=== PATIENT | female | born 1940 | race Caucasian/White ===

== ENCOUNTER 2019-11-19 08:34 | Outpatient (CLI) | payer MEDICARE, SELFPAY ==
--- NOTE | 2019-11-19 | EST_ITS ---
Patient Info Name: Giselle Aranda Age: 79 years : 1940 Gender: Female Ht: 66 in Wt: 147 lbs BSA: 1.77 m2 Exam Date: 11/19/2019 11:32 AM Exam Location: [facility] Stress Patient Status: Outpatient Admit Date: 11/19/2019 Staff Ordering Physician: John Greenwood DO Attending Provider: John Greenwood DO Exercise Technologist: John Wynn RDCS, RT Exercise Physician: John Greenwood DO Exam Type: CA stress eva w NM Study Info A regadenoson stress test was performed. Summary 1. 1. Negative lexiscan stress test for ischemic ST changes by ECG criteria. 2. 2. Stable hemodynamics throughout the test. 3. 3. Nuclear scan to follow and will be reported separately. Please correlate with it. 4. 4. Patient informed of the above results. Protocol: Lexiscan Stress ECG Details Stage: REST Duration (min): 4 min : 44 sec HR (bpm): 98 SBP (mmHg): 111 DBP (mmHg): 66 Stage: STAGE 1 Duration (min): 1 min : 0 sec HR (bpm): 72 SBP (mmHg): 140 DBP (mmHg): 75 Stage: RECOVERY Duration (min): 1 min : 0 sec HR (bpm): 102 SBP (mmHg): 140 DBP (mmHg): 75 Stage: RECOVERY Duration (min): 2 min : 0 sec HR (bpm): 105 SBP (mmHg): 140 DBP (mmHg): 75 Stage: RECOVERY Duration (min): 3 min : 0 sec HR (bpm): 97 SBP (mmHg): 137 DBP (mmHg): 81 Stage: RECOVERY Duration (min): 3 min : 21 sec HR (bpm): 111 SBP (mmHg): 137 DBP (mmHg): 81 Rest HR: 98 bpm Peak HR: 118 bpm Rest Sys BP: 111 mmHg Peak Sys BP: 140 mmHg Max Pred HR: 140 bpm % Max Pred HR: 84 % Target HR: 119 bpm Max RPP: 16,520 bpm*mmHg Termination Reason: Completed protocol Cardiac Symptoms: Shortness of breath Total Time: 1 min : 0 sec Rest Snow BP: 66 mmHg Peak Snow BP: 75 mmHg Total Dose: 0.4 mg Resting ECG Atrial fibrillation. Stress ECG No ST changes. Arrhythmias None. Report Signatures
--- NOTE | ~2019-11-19 | NM_ITS ---
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 The patient was infused intravenously with Lexiscan (regadenoson). Then, 24.2 mCi Tc99m tetrofosmin (Myoview) was administered intravenously, and stress images were obtained. Data was surekha nstructed into short axis and horizontal and vertical long axis SPECT images. Gated SPECT images were also obtained. COMPARISON: None. FINDINGS: There is no definite reversible or fixed perfusion abnormality to suggest ischemia or infar ction. There is no segmental wall motion abnormality. Left ventricular ejection fraction measures 4 9%. IMPRESSION: 1. No definite ischemia or infarct. 2. Decreased left ventricular ejection fraction measuring 49%. Reviewed, dictated and finalized at location A. NG MACHINE OPERATOR PRODUCTION
== END 2019-11-19 08:35 | disposition home or self-care (01) ==
PROVIDERS: PCP Internal Medicine; Visit Provider Internal Medicine Cardiovascular Disease
DX: I50.20 Unspecified systolic (congestive) heart failure (principal)
CPT/HCPCS: 78452; 93017; A9502; J2785

== ENCOUNTER 2020-06-03 08:29 | Outpatient (CLI) | payer MEDICARE, SELFPAY ==
--- NOTE | 2020-06-03 08:47 | ECHO_ITS ---
Patient Info Name: Giselle Aranda Age: 79 years : 1940 Gender: Female Ht: 66 in Wt: 148 lbs BSA: 1.78 m2 HR: 76 bpm BP: 131 / 85 mmHg Heart Rhythm: Atrial Fibrillation Technical Quality: Good Exam Date: 06/03/2020 9:06 AM Exam Location: [facility] Pulmonary Patient Status: Outpatient Admit Date: 06/03/2020 Staff Ordering Physician: John Greenwood DO Macaroni Maker: Jennifer Beckwith RDCS Attending Provider: John Greenwood DO Exam Type: CA echo doppler color flow Study Info Indications - SYSTOLIC DIASTOLIC CONGESTIVE HEART FAILURE Complete two-dimensional, color flow and Doppler transthoracic echocardiogram is performed. Summary 1. Left ventricular chamber dimension is normal. 2. Left ventricular systolic function is preserved, estimated at 50-55%. 3. There is mildly increased left ventricular wall thickness. 4. The left ventricular diastolic function is abnormal. 5. E/e' 16 is elevated. 6. Atrial fibrillation. 7. Left atrial chamber dimension is severely enlarged. 8. Right atrial chamber dimension is severely enlarged. 9. Suspected atrial septal defect visualized by color flow imaging. 10. There is severe aortic valve sclerosis. 11. There is trace aortic valve regurgitation. 12. There is moderate to severe aortic valve stenosis based on a peak velocity of 301 cm/s, mean gradient of 22 mmHg, and aortic valve area of 1.0 cm2. 13. The mitral valve has moderately calcified annulus. 14. There is moderate mitral valve regurgitation. 15. There is mild to moderate tricuspid valve regurgitation. 16. Mild pulmonary hypertension, estimated pulmonary arterial systolic pressure is 44 mmHg. 17. There is trace pulmonic regurgitation. 18. Dilated inferior vena cava with >50% collapse upon inspiration consistent with elevated right atrial pressure, 10 mmHg. Left Ventricle E/e' 16 is elevated. Atrial fibrillation. Left ventricular systolic function is preserved, estimated at 50-55%. Left ventricular chamber dimension is normal. There is mildly increased left ventricular wall thickness. The left ventricular diastolic function is abnormal. Right Ventricle Right ventricular chamber dimension is not well visualized. Right ventricular systolic function is normal. Left Atria Left atrial chamber dimension is severely enlarged. Right Atria Right atrial chamber dimension is severely enlarged. Atrial Septum Suspected atrial septal defect visualized by color flow imaging. Aortic Valve There is moderate to severe aortic valve stenosis based on a peak velocity of 301 cm/s, mean gradient of 22 mmHg, and aortic valve area of 1.0 cm2. The aortic valve is trileaflet. There is severe aortic valve sclerosis. There is trace aortic valve regurgitation. Pulmonic Valve There is trace pulmonic regurgitation. Mitral Valve The mitral valve has moderately calcified annulus. There is no mitral valve stenosis. There is moderate mitral valve regurgitation. Tricuspid Valve There is mild to moderate tricuspid valve regurgitation. Mild pulmonary hypertension, estimated pulmonary arterial systolic pressure is 44 mmHg. Pericardium/Pleural There is no pericardial effusion. Inferior Vena Cava Dilated inferior vena cava with >50% collapse upon inspiration consistent with elevated right atrial pressure, 10 mmHg. Aorta The aortic root size at the sinus of Valsalva is normal. Left Ventricular Outflow Tract
== END 2020-06-03 08:30 | disposition home or self-care (01) ==
LOC: ANHCARD 08:30
PROVIDERS: PCP Internal Medicine; Visit Provider Internal Medicine Cardiovascular Disease
DX: I50.43 Acute on chronic combined systolic (congestive) and diastolic (congestive) heart failure (principal); I08.3 Combined rheumatic disorders of mitral, aortic and tricuspid valves
CPT/HCPCS: 93306

== ENCOUNTER 2020-06-07 18:53 | Emergency (ER) | payer MEDICARE, SELFPAY ==
--- NOTE | ~2020-06-07 | XR_ITS ---
EXAMINATION: XR chest 2V DATE: 06/07/2020 20:11 INDICATION: COPD presenting with difficulty breathing TECHNIQUE: frontal and lateral views of the chest were obtained. COMPARISON: Chest radiograph dated 10/23/2019 FINDINGS: Hyperexpansion of lungs with flattening of the diaphragm suggestive of COPD. Blunting at the left pos terior sulcus consistent with small left pleural effusion. Previous pulmonary edema has resolved. No pneumothorax or right-sided pleural effusion. Cardiomegaly. Internal fixation along the posterolatera l left seventh, eighth and ninth ribs. Old healed posterolateral left sixth rib fracture. Moderate th oracic spondylosis. IMPRESSION: 1. Small left pleural effusion. 2. Hyperexpansion of lungs which could be seen with COPD. 3. Cardiomegaly. Reviewed, dictated and finalized at location A.
--- NOTE | 2020-06-07 18:56 | ECG_ITS ---
Measurements Intervals [place] Rate: 97 P: CT: 0 QRS: -17 QRSD: 101 T: 1 QT: 331 QTc: 422 Interpretive Statements ATRIAL FIBRILLATION FREQUENT VENTRICULAR PREMATURE COMPLEXES INCOMPLETE RIGHT BUNDLE BRANCH BLOCK ABNORMAL ECG Electronically Signed On 06-07-2020 19:24:48 CDT by John Greenwood D.O.
[2020-06-07 19:02] VITALS: BP 162/82; PULSE 92; PULSE 93; RESP 20; TEMP 35.9; O2SAT 92
[2020-06-07 19:14] LABS: Basophils Absolute Auto 0.1 K/mm3 (0.0-0.1); Basophils Percent Auto 0.7 % (0.2-1.2); Eosinophils Absolute Auto 0.2 K/mm3 (0-0.3); Eosinophils Percent Auto 2.2 % (0-4.4); Hematocrit 43.5 % (37.0-47.0); Hemoglobin 14.5 g/dL (12.0-15.0); Immature Granulocyte Absolute 0.04 K/mm3 (0.00-0.031); Immature Granulocyte Percent A 0.5 % (0-0.5); Lymphocytes Absolute Auto 2.14 K/mm3 (0.9-3.2); Lymphocytes Percent Auto 24.5 % (18.3-44.2); Mean Corpuscular HGB Conc 33.3 g/dl (32-36); Mean Corpuscular Hemoglobin 33.5 pg (26-34); Mean Corpuscular Volume 100.5 fl (80-100); Mean Platelet Volume 10.4 fl (7.4-10.4); Monocytes Absolute Auto 0.9 K/mm3 (0.1-0.6); Monocytes Percent Auto 10.7 % (2.6-8.5); Neutrophils Absolute Auto 5.4 K/mm3 (1.3-6.7); Neutrophils Percent Auto 61.4 % (45.5-73.1); Platelet Count Result 233 k/mm3 (150-375); Red Blood Count 4.33 M/mm3 (4.2-5.4); Red Cell Distribution Width 14.3 % (11.5-14.5); White Blood Count 8.7 K/mm3 (4.5-10.0)
[2020-06-07 19:26] LABS: Anion Gap 7 mmol/L (8-16); Blood Urea Nitrogen 20 mg/dL (7-17); Calcium 9.4 mg/dL (8.4-10.2); Carbon Dioxide 27 mmol/L (22-30); Chloride 104 mmol/L (98-107); Estimated Glomerular Filt Rate > 60; Glucose 100 mg/dL (65-105); Potassium 4.8 mmol/L (3.4-5.0); Sodium 138 mmol/L (137-145)
--- NOTE | 2020-06-07 19:35 | ED.SOB ---
HPI - SOB/Dyspnea General Chief Complaint: Shortness of Breath/Dyspnea Stated Complaint: can't breathe very well Time Seen by Provider: 06/07/20 19:04 Source: patient and family Mode of arrival: ambulatory Limitations: no limitations History of Present Illness HPI Narrative: This patient is an 79 year old female who presents for evaluation of shortness of breath. PAtient states she has been intermittently sob for 6 months but it has worsened over the past week. She states she is having issues with sob with exertion. she had to stop a couple times while walking into ER from the car today. She was admitted to hospital in October 2019 for a similar issue and she was diagnosed with CHF and afib. She was started on medication and she has been following with Dr. Greenwood. She was seen by her aquatics director, Dr. Greenwood, this past week, and she was told that her heart was fine. She denies chest pain, edema, cough, fever, nausea or vomiting. MD elicited complaint: shortness of breath Related Data Home Medications Medication Instructions Recorded Confirmed allopurinol 300 mg PO DAILY 10/23/19 04/22/20 Allergies Allergy/AdvReac Type Severity Reaction Status Date / Time iodine Allergy Unknown Unknown Verified 04/22/20 11:03 Penicillins Allergy Unknown Unknown Verified 04/22/20 11:03 shellfish derived Allergy Unknown Unknown Verified 04/22/20 11:03 Review of Systems Review of Systems: All systems reviewed & are unremarkable except as noted in HPI and below Constitutional: Constitutional: Denies chills, Reports fatigue and Denies fever(s) ENT: Denies nasal congestion Cardiovascular: Cardiovascular: Denies chest pain and Denies radiating jaw, neck or arm pain Respiratory: Respiratory: Denies cough, Reports dyspnea and Denies wheezing Gastrointestinal: Gastrointestinal: Reports abdominal pain and Reports nausea PMFSH Past Medical History Medical History BCC (basal cell carcinoma of skin) Gout HTN (hypertension) Rib fractures Tobacco abuse Surgical History Surgical History (Updated 10/23/19 @ 13:32 by Marisol Cyr NP) History of bladder suspension procedure History of open reduction and internal fixation (ORIF) procedure chest tube, possible pneumothorax that was drained History of surgical removal of skin lesion face Social History Social History (Updated 01/02/20 @ 13:22 by Marisol Cyr NP) Social History: The patient lives with her who she nominated to be her durable poa . She desires full code but does not want to live on a ventilator for a lifetime. She has a son and daughter. 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 rarely drinks. 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 Gender identity (if verbalized by the patient): Female Spiritual care concerns: No Agree to blood products: Yes Exam Const: General: alert Nutritional Appearance: thin Orientation/consciousness: patient oriented x3 HENMT: Head: normocephalic and atraumatic Eyes: EOM: EOMs intact bilaterally Chest: Chest palpation & inspection: normal inspection of the chest Resp: Effort & Inspection: labored (mild l), no retractions and no use of accessory muscles Auscultation: clear to auscultation bilaterally, no wheezes and diminished lung sounds Cardio: Rate: regular rate Rhythm: abnormal rhythm irregularly irregular Heart sounds: no murmurs GI: GI Palp: Yes Soft to palpation, No Tenderness to palpation present (GI), No Guarding due to palpation present (GI) and No Rigid due to palpation Skin: General skin exam: normal color Rashes: no rashes Neuro: General: patient oriented x3 and moves all extremities Extrem: General: no pedal edema Course Reevaluation(s) Reevaluation #1: Michelle
[2020-06-07 19:36] LABS: INR 1.3
[2020-06-07 19:37] LABS: Partial Thromboplastin Time 30.8 SECONDS (22.3-36.8)
[2020-06-07] MEDS: ALBUTEROL SULFATE (*SP) AEROSOL 1 PUFF 6 PUFF INHALATION (19:37)
[2020-06-07] MEDS: ALBUTEROL SULFATE (*SP) INHALER 1 PUFF (19:37)
[2020-06-07 19:39] VITALS: PULSE 89; RESP 20
[2020-06-07 19:45] LABS: NT Pro B Type Natriuretic Pept 3230 PG/ML (5-100)
[2020-06-07 19:51] LABS: Base Excess ABG 2.2 mEq/l (+/-2.0); Carboxyhemoglobin 1.7 % THb (0-2.0); Fractional Inspired Oxygen 21 %; HCO3 ABG 28.1 mEq/l (22.0-26.0); Methemoglobin ABG 0.2 %THb (0-1.5); Oxygen Content ABG 18.3 %vol (16.0-22.0); Oxyhemoglobin 88.2 % THb (90.0-100.0); PCO2 ABG 48.2 mmHg (35.0-45.0); PO2 FiO2 Ratio Arterial Blood 2.71 %; Reduced Hemoglobin 9.9 %THb (0-5.0); Total Hemoglobin 14.8 g/dL (12.0-18.0); pH ABG 7.383 (7.350-7.450)
[2020-06-07 19:52] LABS: Device ROOM AIR; Modified Allen's Test Pass; Site Drawn RIGHT RADIAL
[2020-06-07] MEDS: predniSONE 20 MG TABLET 60 MG PO (20:54)
[2020-06-07 20:57] VITALS: BP 152/84; PULSE 92; RESP 30; O2SAT 94
[2020-06-07 21:36] VITALS: BP 152/84; PULSE 93; RESP 28; TEMP 36.6; O2SAT 95
[2020-06-08 14:24] LABS: SARS-CoV-2 RNA PCR Negative
== END 2020-06-07 21:39 | disposition home or self-care (01) ==
PROVIDERS: Emergency Medicine; Emergency Provider General Practice; PCP Internal Medicine
DX: R06.02 Shortness of breath (principal); I48.91 Unspecified atrial fibrillation; J44.9 Chronic obstructive pulmonary disease, unspecified; Z20.828 Contact with and (suspected) exposure to other viral communicable diseases
CPT/HCPCS: 36415; 36600; 71046; 80048; 82375; 82805; 83050; 83880; 85025; 85610; 85730; 87635; 93005; 99284; A9270; C9803; J7512; U0003

== ENCOUNTER 2020-08-17 12:33 | Outpatient (CLI) | payer MEDICARE, SELFPAY ==
--- NOTE | 2020-08-22 12:04 | WPDPFTINT ---
PFT Interpretation PFT Interpretation: This PFT met all criteria for ATS standards and reproducibility FEV/FVC post bronchodilator 45% FEV1 56% or 1.02 liters FVC 86% or 2.29 liters TLC 135% or 6.68 liters RV 203% RV/TLC 64% DLCO 69% when adjusted for alveolar volume but not adjusted for hemoglobin Flow volume loops showed significant expiratory coving Impression: Moderate airflow obstruction with severe air trapping and mildly decreased diffusion capacity. This pattern is suggestive of COPD. Clinical correlation is advised.
--- NOTE | 2020-08-22 12:06 | WPDSIXMINUTE ---
Six Minute Walk Six Minute Walk: The patients O2 sats started at 93% and dropped as low as 92% Total walk distance 152.4 meters conclusion: This patient does not qualify for home oxygen therapy.
== END 2020-08-17 12:34 | disposition home or self-care (01) ==
PROVIDERS: PCP Internal Medicine; Visit Provider Internal Medicine Critical Care Medicine
DX: J44.9 Chronic obstructive pulmonary disease, unspecified (principal)
CPT/HCPCS: 94060; 94618; 94726; 94729

== ENCOUNTER 2020-10-04 10:38 | Outpatient (CLI) | payer MEDICARE, SELFPAY ==
--- NOTE | ~2020-10-04 | XR_ITS ---
XR chest 2V 10/04/2020 11:06 Indication: Shortness of breath. COPD. Procedure: 2 view chest Comparison: Comparison to multiple prior studies sequentially, with oldest reviewed study dated 11/2019. Findings: Cardiomegaly. There are surgical changes consistent with internal fixation of left rib frac tures. There are patchy infiltrates of the right mid and lower lung zone. Possible small right effusi on. No pneumothorax. No acute osseous abnormality. Impression: 1: Patchy infiltrates of the right mid and lower lung zone, suspicious for pneumonia. Consider correl ation with CT examination or follow-up chest x-ray in 3-4 weeks to assess for resolution following ap propriate treatment. Reviewed, dictated and finalized at location A. ON PICTURE CRITIC Impression: 1: Patchy infiltrates of the right mid and lower lung zone, suspicious for pneu monia. Consider correlation with CT examination or follow-up chest x-ray in 3-4 weeks to assess for resolution following appropriate treatment.
[2020-10-04 11:56] LABS: NT Pro B Type Natriuretic Pept 2960 PG/ML (5-100)
== END 2020-10-04 10:39 | disposition home or self-care (01) ==
PROVIDERS: PCP Internal Medicine; Visit Provider Nurse Practitioner Family
DX: I50.43 Acute on chronic combined systolic (congestive) and diastolic (congestive) heart failure (principal); R06.02 Shortness of breath; R91.8 Other nonspecific abnormal finding of lung field
CPT/HCPCS: 36415; 71046; 83880

== ENCOUNTER 2020-10-05 08:18 | Outpatient (CLI) | payer MEDICARE, SELFPAY ==
--- NOTE | 2020-11-17 20:06 | WPDHOMESLEEP ---
Sleep Study - Home Unattended Date of Study: 10/05/20 Ordering Provider: Rose Marie Abreu MD Interpreting Physician: Rose Marie Abreu MD Home Sleep Study Type: Apnea Link Air Height: 1.68 m Weight: 69.853 kg Body Mass Index: 24.8 Neck Circumference (inches): 18 [place]: 6 Reason for Sleep Study Overnight oximetry July 01 2020 showing hypoxemia with minimum saturation 82% and oxygen desaturation index 14 events per hour. Sleep History Giselle Aranda is an 80-year-old female with a history of COPD, prior tobacco use and chronic shortness of breath. She has a decreased ejection fraction of 45-50% with aortic stenosis. she had a nocturnal oximetry July 01 that showed an oxygen index of 14 per hour and a minimum desaturation of 82%. Her baseline a wake saturation is 93%. This was more consistent with obstructive sleep apnea and not COPD with hypoxemia alone. She has chronic shortness of breath with inability to perform her normal activities. She has fatigue, breathing, incontinence with multiple trips to the bathroom throughout the day and night. She has arthritis with severe pain and swelling in the left foot and leg. He has hypertension. She has excessive daytime sleepiness. She rarely snores, and it is never loud enough that others complain about it. She never awakens at night with heartburn, belching or coughing. She never awakens from sleep feeling short of breath. She rarely has trouble sleeping with a cold. She does not wake up gasping for breath at night. She rarely has breathing problems at night observed by others. She denies sweating excessively at night and denies her heart pounding or beating irregularly at night. She frequently falls asleep during the day, never involuntarily or while driving. She does not fall asleep while exerting physical effort. She does not have loss of muscle tone with strong emotion. She does not have daytime difficulties due to excessive sleepiness, currently is retired. She denies feeling paralyzed when waking or falling asleep. She does not have vivid dreamlike scenes upon awakening or falling asleep. She does not feel afraid to go to sleep. She does not have nightmares. She occasionally remembers her dreams. She does not have racing thoughts. She does not feel sad or depressed. She occasionally has anxiety. She rarely has muscular tension. She does not notice parts of her body jerking. She does not kick at night and does not have crawling or aching feelings in her legs at night. She does not have leg pain during the night. She denies waking with morning jaw pain. she occasionally grinds her teeth at night. She occasionally has bothered by pain during the day. She rarely is awakened by pain during the night. She occasionally wakes up feeling stiff in the morning with sore achy muscles. She rarely wakes up with pain in the spine. Normal bedtime is 10:00 p.m. falling asleep within a few minutes typically waking 1 or 2 times at night. She will go to urinate and then try to get back to sleep. She wakes in the morning at 7:30 a.m. or 8:00 a.m.. Weekend schedule is the same. She estimates getting 8-9 hours of interrupted sleep per night. She is able to return to sleep relatively quickly. She takes naps in the afternoon. A short nap of 10-15 minutes is not refreshing. She feels better in the morning compared other times of day. Habits: quit tobacco a year and a half ago. Caffeine 2 cups per day. No alcohol or recreational drugs [facility] Past Medical History Medical History (Updated 11/17/20 @ 20:21 by Rose Marie Abreu MD) BCC (basal cell carcinoma of skin) CHF (congestive heart failure) Chronic shortness of breath COPD (chronic obstructive pulmonary disease) Gout History of atrial fibrillation History of tobacco abuse HTN (hypertension) Hyperinflation of lungs Infiltrate noted on imaging study Moderate to severe aortic stenosis Nocturnal hypoxemia Pulmonary hypertension
[2020-11-17 20:24] VITALS: BMI 24.8
== END 2020-10-05 08:19 | disposition home or self-care (01) ==
LOC: ANHCSM 08:22
PROVIDERS: PCP Internal Medicine; Visit Provider Internal Medicine Critical Care Medicine
DX: G47.30 Sleep apnea, unspecified (principal); J44.9 Chronic obstructive pulmonary disease, unspecified
CPT/HCPCS: 95806

== ENCOUNTER 2020-11-05 13:30 | Outpatient (CLI) | payer MEDICARE, SELFPAY ==
--- NOTE | 2020-11-05 13:38 | ECHO_ITS ---
Patient Info Name: Giselle Aranda Age: 80 years : 1940 Gender: Female Ht: 66 in Wt: 148 lbs BSA: 1.78 m2 HR: 81 bpm BP: 123 / 98 mmHg Technical Quality: Good Exam Date: 11/05/2020 1:57 PM Exam Location: [facility] Pulmonary Patient Status: Outpatient Admit Date: 11/05/2020 Staff Ordering Physician: John Greenwood DO Crester: John Wynn RDCS, RT Attending Provider: John Greenwood DO Referring Physician: Timo DO; Exam Type: CA echo doppler color flow Study Info Indications I35.0 - Nonrheumatic aortic (valve) stenosis Complete two-dimensional, color flow and Doppler transthoracic echocardiogram is performed. Strain analysis performed. Summary 1. Complete two-dimensional, color flow and Doppler transthoracic echocardiogram is performed. 2. Left ventricular chamber dimension is mildly enlarged. 3. Left ventricular systolic function is mildly reduced, estimated at 45-50%. 4. There is moderately increased left ventricular wall thickness. 5. Left ventricular septal wall motion is abnormal with septal motion related to bundle branch block. 6. The left ventricular diastolic function is abnormal. 7. E/e' 16 is elevated. 8. Global longitudinal strain is abnormal at -9.2%. 9. Right ventricular systolic function is reduced based on TAPSE of 1.1 cm.. 10. Left atrial chamber dimension is moderately enlarged. 11. Right atrial chamber dimension is severely enlarged. 12. The aortic valve is not well visualized. 13. There is severe aortic valve sclerosis. 14. There is trace aortic valve regurgitation. 15. There is moderate to severe aortic valve stenosis. Based on valve gradients of peak 22 mmHg and mean gradient 12 mmHg and peak velocity of 2.9 m/s suggests that aortic stenosis is not severe. Valve area was not calculated. Consider EMANI for accurate measurement of valve area. 16. The mitral valve has mildly thickened leaflets and moderately calcified annulus. 17. There is moderate mitral valve regurgitation. 18. There is moderate tricuspid valve regurgitation. 19. Severe pulmonary hypertension, estimated pulmonary arterial systolic pressure is 71 mmHg. 20. There is trace pulmonic regurgitation. 21. Small atheroma in anterior and posterior aortic root. 22. Dilated inferior vena cava with <50% collapse upon inspiration consistent with significantly elevated right atrial pressure, 15 mmHg. Left Ventricle E/e' 16 is elevated. Global longitudinal strain is abnormal at -9.2%. Left ventricular chamber dimension is mildly enlarged. Left ventricular systolic function is mildly reduced, estimated at 45-50%. There is moderately increased left ventricular wall thickness. Left ventricular septal wall motion is abnormal with septal motion related to bundle branch block. The left ventricular diastolic function is abnormal. Right Ventricle Right ventricular systolic function is reduced based on TAPSE of 1.1 cm.. Right ventricular chamber dimension is not well visualized. Left Atria Left atrial chamber dimension is moderately enlarged. Right Atria Right atrial chamber dimension is severely enlarged. Aortic Valve There is moderate to severe aortic valve stenosis. Based on valve gradients of peak 22 mmHg and mean gradient 12 mmHg and peak velocity of 2.9 m/s suggests that aortic stenosis is not severe. Valve area was not calculated. Consider EMANI for accurate measurement of valve area. The aortic valve is not well visualized. There is severe aortic valve sclerosis. There is trace aortic valve regurgita
== END 2020-11-05 13:31 | disposition home or self-care (01) ==
PROVIDERS: PCP Internal Medicine; Visit Provider Internal Medicine Cardiovascular Disease
DX: I35.0 Nonrheumatic aortic (valve) stenosis (principal); I70.0 Atherosclerosis of aorta; I34.0 Nonrheumatic mitral (valve) insufficiency; I36.1 Nonrheumatic tricuspid (valve) insufficiency; I27.20 Pulmonary hypertension, unspecified; I51.7 Cardiomegaly
CPT/HCPCS: 93306

== ENCOUNTER 2020-11-20 01:34 | Outpatient (CLI) | payer MEDICARE, SELFPAY ==
[2020-11-20 18:46] LABS: SARS-CoV-2 RNA PCR Negative
== END 2020-11-20 01:35 | disposition home or self-care (01) ==
LOC: ANHCOVIDDT 01:34
PROVIDERS: Family Provider Internal Medicine; PCP Internal Medicine; Visit Provider Internal Medicine Critical Care Medicine
DX: Z01.812 Encounter for preprocedural laboratory examination (principal); Z20.822 Contact with and (suspected) exposure to COVID-19
CPT/HCPCS: C9803; U0003; U0005

== ENCOUNTER 2020-11-23 08:37 | Outpatient (CLI) | payer MEDICARE, SELFPAY ==
--- NOTE | 2020-12-15 17:06 | WPDSLEEPSTUD ---
Sleep Study Date of Study: 11/23/20 Ordering Provider: Rose Marie Abreu MD Interpreting Physician: Rose Marie Abreu MD Sleep Study Type: Polysomnogram Height: 1.65 m Weight: 67.132 kg Body Mass Index: 24.6 Neck Circumference: 38.1 cm [place]: 13 Reason for Sleep Study *excessive daytime sleepiness HST 10/05/2020 mild JUAN R AHI of 7, desaturation 82%, 21 minutes spent below 88% saturation which was 4% of the test, mild snoring; comorbidity of hypertension, also COPD; this test was ordered as a split night study although it should have been a CPAP titration; she had little sleep, did not meet criteria for a split night, so this was performed as a basic sleep study. Sleep History Giselle Aranda is an 80-year-old female who thinks that she sleeps too much. She gets 8-9 hours of sleep at night and always takes a 2 or 3 hour nap in the day. She has incontinence which requires her to get up at night to go to the bathroom 1 or 2 times. She has always able to return to sleep. She does not awaken from sleep feeling short of breath. She does not awaken at night with heartburn, belching or coughing. She rarely snores, and it is not loud enough that others complain about it. She does not have trouble sleep with a cold. She does not wake up gasping for breath at night. She never awakens at night with heartburn, belching or coughing. She never awakens from sleep feeling short of breath. She rarely has trouble sleeping with a cold. She does not wake up gasping for breath at night. She rarely has breathing problems at night observed by others. She denies sweating excessively at night and denies her heart pounding or beating irregularly at night. She frequently falls asleep during the day, never involuntarily or while driving. She does not fall asleep while exerting physical effort. She does not have loss of muscle tone with strong emotion. She does not have daytime difficulties due to excessive sleepiness, currently is retired. She denies feeling paralyzed when waking or falling asleep. She does not have vivid dreamlike scenes upon awakening or falling asleep. She does not feel afraid to go to sleep. She does not have nightmares. She occasionally remembers her dreams. She does not have racing thoughts. She does not feel sad or depressed. She occasionally has anxiety. She rarely has muscular tension. She does not notice parts of her body jerking. She does not kick at night and does not have crawling or aching feelings in her legs at night. She does not have leg pain during the night. She denies waking with morning jaw pain. she occasionally grinds her teeth at night. She occasionally has bothered by pain during the day. She rarely is awakened by pain during the night. She occasionally wakes up feeling stiff in the morning with sore achy muscles. She rarely wakes up with pain in the spine. She has a history of COPD, prior tobacco use and chronic shortness of breath. She has a decreased ejection fraction of 45-50% with aortic stenosis. She had a nocturnal oximetry July 01, 2020 that showed an oxygen desaturation index of 14 per hour and a minimum desaturation of 82%. Her baseline awake saturation is 93%. This was more consistent with obstructive sleep apnea and not COPD with hypoxemia alone. She has chronic shortness of breath with inability to perform her normal activities. She has fatigue, breathing problems, and incontinence with multiple trips to the bathroom throughout the day and night. She has arthritis with severe pain and swelling in the left foot and leg. He has hypertension. She has excessive daytime sleepiness. Normal bedtime is 10:00 p.m. falling asleep within a few minutes typically waking 1 or 2 times at night. She will go to urinate and then try to get back to sleep. She wakes in the morning at 7:30 a.m. or 8:00 a.m.. Weekend schedule is the same. She estimates getting 8-9 hours of interrupted sleep per night. She i
[2020-12-17 15:57] VITALS: BMI 24.6
== END 2020-11-23 08:38 | disposition home or self-care (01) ==
LOC: ANHCSM 08:39
PROVIDERS: Family Provider Internal Medicine; PCP Internal Medicine; Visit Provider Internal Medicine Critical Care Medicine
DX: G47.33 Obstructive sleep apnea (adult) (pediatric) (principal); G47.10 Hypersomnia, unspecified; I10 Essential (primary) hypertension; J44.9 Chronic obstructive pulmonary disease, unspecified; F17.210 Nicotine dependence, cigarettes, uncomplicated; Z79.899 Other long term (current) drug therapy
CPT/HCPCS: 71250; 95810

== ENCOUNTER 2020-11-23 09:46 | Outpatient (CLI) | payer MEDICARE, SELFPAY ==
--- NOTE | ~2020-11-23 | CT_ITS ---
EXAMINATION:CT diagnostic chest wo con DATE: 11/23/2020 10:08 INDICATION: Abnormal findings on diagnostic imaging. TECHNIQUE: Computed tomography (CT) of the chest was performed without intravenous contrast. Automate d exposure control and iterative reconstruction technique were employed. The dose-length product (DLP ) was 156.49 mGy-cm. COMPARISON: Chest 2 views 10/04/2020, chest CT 09/03/2018 FINDINGS: The lungs demonstrate mild atelectasis. There is a 4 mm nodule in left lower lobe without c hange, likely benign. There is mild scarring at the lung apices. There is mild emphysema. There is ne ar complete collapse of right middle lobe. A calcified right lung nodule and calcified right hilar ly mph node are consistent with old granulomatous disease. There is a small right pleural effusion. Card iomegaly is noted. There are coronary artery calcifications. There are calcifications of aortic valve . No pericardial effusion. The central pulmonary arteries are enlarged, consistent with pulmonary art erial hypertension. There are multiple old healed left rib fractures, some with instrumentation. Ther e is severe thoracic spondylosis. IMPRESSION: 1. Near complete collapse of right middle lobe, new from 09/03/2018. 2. Mild emphysema. 3. Cardiomegaly. Reviewed, dictated and finalized at location A. ENCY EXAMINER
== END 2020-11-23 09:47 | disposition home or self-care (01) ==
PROVIDERS: PCP Internal Medicine; Visit Provider Internal Medicine Critical Care Medicine
DX: R91.8 Other nonspecific abnormal finding of lung field (principal); J43.9 Emphysema, unspecified; I51.7 Cardiomegaly
CPT/HCPCS: 71250

== ENCOUNTER → 2020-12-18 01:35 | Outpatient (CLI) | payer MEDICARE, SELFPAY ==
[2020-12-18 19:42] LABS: SARS-CoV-2 RNA PCR Negative
== END ==
PROVIDERS: PCP Internal Medicine; Visit Provider Internal Medicine Critical Care Medicine
DX: R68.89 Other general symptoms and signs (principal); Z20.822 Contact with and (suspected) exposure to COVID-19
CPT/HCPCS: C9803; U0003; U0005

== ENCOUNTER 2020-12-21 09:12 | Outpatient (CLI) | payer MEDICARE, SELFPAY ==
--- NOTE | 2020-12-27 13:41 | WPDSLEEPSTUD ---
Sleep Study Ordering Provider: Rose Marie Abreu MD Interpreting Physician: Rose Marie Abreu MD Sleep Study Type: CPAP Titration Height: 1.68 m Weight: 68.946 kg Body Mass Index: 24.5 Neck Circumference (inches): 15 [place]: 5 Reason for Sleep Study Home sleep test with [facility] 10/05/2020 with mild obstructive sleep apnea; AHI of 7, desaturation 82%, 21 minutes < 88%, presents for CPAP titration Sleep History Manoj is an 80-year-old female with a history of COPD, prior tobacco use and chronic shortness of breath. She has a decreased ejection fraction of 45-50% with aortic stenosis. she had a nocturnal oximetry July 01 that showed an oxygen index of 14 per hour and a minimum desaturation of 82%. Her baseline a wake saturation is 93%. This was more consistent with obstructive sleep apnea and not COPD with hypoxemia alone. She has chronic shortness of breath with inability to perform her normal activities. She has fatigue, breathing, incontinence with multiple trips to the bathroom throughout the day and night. She has arthritis with severe pain and swelling in the left foot and leg. He has hypertension. She has excessive daytime sleepiness. She rarely snores, and it is never loud enough that others complain about it. She never awakens at night with heartburn, belching or coughing. She never awakens from sleep feeling short of breath. She rarely has trouble sleeping with a cold. She does not wake up gasping for breath at night. She rarely has breathing problems at night observed by others. She denies sweating excessively at night and denies her heart pounding or beating irregularly at night. She frequently falls asleep during the day, never involuntarily or while driving. She does not fall asleep while exerting physical effort. She does not have loss of muscle tone with strong emotion. She does not have daytime difficulties due to excessive sleepiness, currently is retired. She denies feeling paralyzed when waking or falling asleep. She does not have vivid dreamlike scenes upon awakening or falling asleep. She does not feel afraid to go to sleep. She does not have nightmares. She occasionally remembers her dreams. She does not have racing thoughts. She does not feel sad or depressed. She occasionally has anxiety. She rarely has muscular tension. She does not notice parts of her body jerking. She does not kick at night and does not have crawling or aching feelings in her legs at night. She does not have leg pain during the night. She denies waking with morning jaw pain. she occasionally grinds her teeth at night. She occasionally has bothered by pain during the day. She rarely is awakened by pain during the night. She occasionally wakes up feeling stiff in the morning with sore achy muscles. She rarely wakes up with pain in the spine. Normal bedtime is 10:00 p.m. falling asleep within a few minutes typically waking 1 or 2 times at night. She will go to urinate and then try to get back to sleep. She wakes in the morning at 7:30 a.m. or 8:00 a.m.. Weekend schedule is the same. She estimates getting 8-9 hours of interrupted sleep per night. She is able to return to sleep relatively quickly. She takes naps in the afternoon. A short nap of 10-15 minutes is not refreshing. She feels better in the morning compared other times of day. Habits: quit tobacco a year and a half ago. Caffeine 2 cups per day. No alcohol or recreational drugs PMFSH Past Medical History Medical History BCC (basal cell carcinoma of skin) CHF (congestive heart failure) Chronic shortness of breath COPD (chronic obstructive pulmonary disease) Gout History of atrial fibrillation History of tobacco abuse HTN (hypertension) Hyperinflation of lungs Infiltrate noted on imaging study Moderate to severe aortic stenosis Nocturnal hypoxemia Pulmonary hypertension Rib fractures Tobacco abus
[2020-12-27 13:42] VITALS: BMI 24.5
== END 2020-12-21 09:13 | disposition home or self-care (01) ==
LOC: ANHCSM 09:12
PROVIDERS: PCP Internal Medicine; Visit Provider Internal Medicine Critical Care Medicine
DX: G47.33 Obstructive sleep apnea (adult) (pediatric) (principal)
CPT/HCPCS: 95811

== ENCOUNTER 2021-01-30 10:31 | Inpatient (IN) | payer MEDICARE, SELFPAY ==
[2021-01-30] VITALS (16 sets, daily range): BP systolic 113–160; BP diastolic 71–91; PULSE 60–107; RESP 18–26; TEMP 36.3–36.6; O2SAT 88–98; BMI 26.6
--- NOTE | ~2021-01-30 | XR_ITS ---
EXAMINATION: XR chest 2V EXAM DATE: 01/30/2021 11:32 INDICATION: Shortness of breath. COPD. TECHNIQUE: Frontal and lateral projections of the chest obtained and reviewed. Comparison is made to prior examination from 10/04/2020. FINDINGS: There is moderate enlargement of the cardiac silhouette, cardiomegaly and/or pericardial e ffusion. Small right pleural effusion. There is indistinct reticulation with a bibasal predominance w hich may indicate pulmonary edema. No confluent consolidation or pneumothorax. The lungs are hyperinf lated which can be seen with chronic obstructive pulmonary disease (a clinical diagnosis of functiona l impairment), but is not diagnostic of it. Left rib fixation hardware. IMPRESSION: 1. Probable CHF exacerbation. 2. Small right pleural effusion. 3. Chronic hyperinflation. Reviewed, dictated and finalized at location A.
--- NOTE | ~2021-01-30 | XR_ITS ---
EXAMINATION: XR chest 2V EXAM DATE: 02/01/2021 07:39 INDICATION: SOB with CHF, COPD . TECHNIQUE: Frontal and lateral projections of the chest obtained and reviewed. Comparison is made to prior examination from 01/30, 10/04/2020. FINDINGS: There is mild to moderate enlargement of the cardiac silhouette, with mild improvement com pared to exam 2 days earlier. Previously suspected pulmonary edema appears to have resolved. No conf luent consolidation or pneumothorax. No evidence of pleural effusion on this exam. Chronic hyperinfla tion. Left rib fixation hardware. IMPRESSION: Improving heart size and resolution of previously suspected pulmonary edema and right ple ural effusion. Reviewed, dictated and finalized at location A. IMPRESSION: Improving heart size and resolution of previously suspected pulmona ry edema and right pleural effusion.
--- NOTE | 2021-01-30 10:36 | ECG_ITS ---
Measurements Intervals [place] Rate: 81 P: NH: 0 QRS: -15 QRSD: 110 T: 23 QT: 364 QTc: 424 Interpretive Statements ATRIAL FIBRILLATION VENTRICULAR PREMATURE COMPLEXES INCOMPLETE RIGHT BUNDLE BRANCH BLOCK BORDERLINE R WAVE PROGRESSION, ANTERIOR LEADS BASELINE ARTIFACT- I, III, AVR, AVL, AVF, V1-V3 ABNORMAL ECG Electronically Signed On 01-30-2021 14:27:46 CDT by John Greenwood D.O.
[2021-01-30 11:21] LABS: Basophils Percent Auto 0.4 % (0.2-1.2); Eosinophils Absolute Auto 0.1 K/mm3 (0-0.3); Eosinophils Percent Auto 1.4 % (0-4.4); Hemoglobin 15.2 g/dL (12.0-15.0); Immature Granulocyte Absolute 0.04 K/mm3 (0.00-0.031); Immature Granulocyte Percent A 0.4 % (0-0.5); Lymphocytes Absolute Auto 1.28 K/mm3 (0.9-3.2); Mean Corpuscular HGB Conc 32.3 g/dl (32-36); Mean Corpuscular Hemoglobin 33.2 pg (26-34); Mean Corpuscular Volume 102.6 fl (80-100); Monocytes Absolute Auto 1.1 K/mm3 (0.1-0.6); Monocytes Percent Auto 11.7 % (2.6-8.5); Neutrophils Absolute Auto 6.6 K/mm3 (1.3-6.7); Neutrophils Percent Auto 72.1 % (45.5-73.1); Platelet Count Result 159 k/mm3 (150-375); Red Blood Count 4.58 M/mm3 (4.2-5.4); Red Cell Distribution Width 15.5 % (11.5-14.5); White Blood Count 9.1 K/mm3 (4.5-10.0)
[2021-01-30 11:37] LABS: Anion Gap 3 mmol/L (8-16); Blood Urea Nitrogen 17 mg/dL (7-17); Carbon Dioxide 31 mmol/L (22-30); Chloride 106 mmol/L (98-107); Estimated CRCL calculation 51 ml/min; Estimated Glomerular Filt Rate > 60; Glucose 95 mg/dL (65-105); Sodium 140 mmol/L (137-145)
--- NOTE | 2021-01-30 11:45 | PC.NURSE ---
Patient transferred from wheelchair to stretcher and noted pulse ox on room air 88%.
--- NOTE | 2021-01-30 12:29 | PC.NURSE ---
Placed on oxygen at this time 2 Li NC for pulse ox at 89% on room air. Currently 94% on [address] Gifford notified.
[2021-01-30 13:01] LABS: NT Pro B Type Natriuretic Pept 6620 PG/ML (5-100); Troponin I < 0.012 ng/mL (0.000-0.034)
[2021-01-30] MEDS: FUROSEMIDE INJ 40 MG/4 ML VIAL IV PUSH ×2 (13:11→20:47)
[2021-01-30] MEDS: ALBUTEROL SULFATE NEB 2.5 MG/0.5 ML INH 5 MG INHALATION ×2 (13:13→20:14)
[2021-01-30] MEDS: IPRATROPIUM BR 0.02% INH SOLN 0.5 MG/2.5 ML VIAL INHALATION (13:13)
--- NOTE | 2021-01-30 13:13 | ED.SOB ---
HPI - SOB/Dyspnea General Chief Complaint: Shortness of Breath/Dyspnea Stated Complaint: SOB Time Seen by Provider: 01/30/21 11:59 Source: patient Mode of arrival: ambulatory Limitations: no limitations History of Present Illness HPI Narrative: 80-year-old female Notes a history of COPD which all the big shots like Dr. Abreu are aggressively treating and also a history of hypertension and A. fib Patient complains of fairly severe exertional dyspnea which has been present for about 2 days Not have a cough or a fever, she does not have any chest pain, and she does not know of anything that might have triggered her symptoms, has not missed any of her medicines Things are not too bad at night when she tries to sleep she sleeps on her side She does not use home oxygen or nebulizer, in fact she has not used her albuterol rescue inhaler either Related Data Home Medications Medication Instructions Recorded Confirmed carvedilol 12.5 mg PO BID 01/30/21 01/30/21 colchicine 0.6 mg PO BID 01/30/21 01/30/21 dabigatran etexilate [Pradaxa] 75 mg PO BID 01/30/21 01/30/21 furosemide 10 mg PO DAILY 01/30/21 01/30/21 Allergies Allergy/AdvReac Type Severity Reaction Status Date / Time iodine Allergy Severe Itching Verified 01/30/21 10:39 Penicillins Allergy Severe Hives Verified 01/30/21 10:39 shellfish derived Allergy Severe Itching Verified 01/30/21 10:39 Review of Systems Review of Systems: All systems reviewed & are unremarkable except as noted in HPI and below Constitutional: Constitutional: Reports no additional constitutional complaints, Denies chills, Denies fever(s) and Denies headache(s) Eyes: Eyes: Reports no additional eye complaints and Denies change in vision ENT: Denies headache(s) and Denies sore throat Cardiovascular: Cardiovascular: Denies chest pain and Denies dyspnea Respiratory: Respiratory: Denies cough and Denies dyspnea Gastrointestinal: Gastrointestinal: Denies abdominal pain, Denies diarrhea and Denies vomiting Genitourinary: Genitourinary: Denies urinary frequency and Denies dysuria Musculoskeletal: Musculoskeletal: Denies deformity, Denies arthralgias, Denies joint swelling and Denies numbness Integumentary/Breasts: Skin/Breast: Denies rash and Denies wounds Neurologic: Denies headache(s), Denies focal weakness and Denies numbness Psychiatric: Psychiatric: Reports no additional psychiatric complaints Endocrine: Endocrine: Reports no additional endocrine complaints Hematologic/Lymphatic: Hematologic/Lymphatic: Reports no additional hematologic/lymphatic complaints Allergic/Immunologic: Allergic/Immunologic: Reports no additional allergic/immunologic complaints PMF Past Medical History Medical History BCC (basal cell carcinoma of skin) CHF (congestive heart failure) Chronic shortness of breath COPD (chronic obstructive pulmonary disease) Gout History of atrial fibrillation History of tobacco abuse HTN (hypertension) Hyperinflation of lungs Infiltrate noted on imaging study Moderate to severe aortic stenosis Nocturnal hypoxemia Pulmonary hypertension Rib fractures Tobacco abuse Surgical History Surgical History History of bladder suspension procedure History of open reduction and internal fixation (ORIF) procedure chest tube, possible pneumothorax that was drained History of surgical removal of skin lesion face Family History Family History Mother Family history of congestive heart failure, Onset Age: 84 Patient's mother is , Onset Age: 84 Father Patient's father is , Onset Age: 63 Acute myocardial infarction, Onset Age: 63 Sibling Patient's brother is Social History Social History Social History: The p
[2021-01-30] MEDS: carvediloL 25 MG TABLET PO (13:23)
--- NOTE | 2021-01-30 15:20 | PC.NURSE ---
This patient, Giselle Aranda, was admitted to [facility] Surg Room 330-01. Patient/family oriented to hospital policies and general routines including ID bracelet, bed and alarms, visiting hours, pain management, procedures, bathroom and other care routines, personal items, smoking policy, room service/diet, and visiting hours. Information on how to activate the Rapid Response Team has been discussed. Patient/Family are encouraged to report perceived risks to care and to ask questions if they do not understand what they are told or what they should do.
[2021-01-30] MEDS: POTASSIUM CHLORIDE 20 MEQ TABLET.ER PO (17:04)
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
[2021-01-30] MEDS: COLCHICINE 0.6 MG TABLET PO (20:43)
[2021-01-30] MEDS: DABIGATRAN ETEXILATE 75 MG CAPSULE PO (20:44)
[2021-01-30] MEDS: carvediloL 12.5 MG TABLET PO (20:45)
[2021-01-31] VITALS (19 sets, daily range): BP systolic 110–126; BP diastolic 58–70; PULSE 48–116; RESP 18–20; TEMP 36.1–36.6; O2SAT 93–97
[2021-01-31] MEDS: ALBUTEROL SULFATE NEB 2.5 MG/0.5 ML INH 5 MG INHALATION ×2 (02:23→08:30)
[2021-01-31] MEDS: IPRATROPIUM BR 0.02% INH SOLN 0.5 MG/2.5 ML VIAL INHALATION ×4 (02:23→20:28)
[2021-01-31] MEDS: FUROSEMIDE INJ 40 MG/4 ML VIAL IV PUSH ×2 (05:23→17:14)
[2021-01-31 06:22] LABS: Basophils Percent Auto 0.1 % (0.2-1.2); Hematocrit 45.5 % (37.0-47.0); Hemoglobin 15.3 g/dL (12.0-15.0); Immature Granulocyte Absolute 0.05 K/mm3 (0.00-0.031); Immature Granulocyte Percent A 0.5 % (0-0.5); Lymphocytes Absolute Auto 0.74 K/mm3 (0.9-3.2); Lymphocytes Percent Auto 6.9 % (18.3-44.2); Mean Corpuscular HGB Conc 33.6 g/dl (32-36); Mean Corpuscular Hemoglobin 33.3 pg (26-34); Mean Corpuscular Volume 98.9 fl (80-100); Mean Platelet Volume 10.8 fl (7.4-10.4); Monocytes Absolute Auto 0.3 K/mm3 (0.1-0.6); Monocytes Percent Auto 2.5 % (2.6-8.5); Neutrophils Absolute Auto 9.7 K/mm3 (1.3-6.7); Platelet Count Result 181 k/mm3 (150-375); Red Cell Distribution Width 14.7 % (11.5-14.5); White Blood Count 10.7 K/mm3 (4.5-10.0)
[2021-01-31 06:32] LABS: Alanine Aminotransferase 26 U/L (4-35); Albumin Level 4.1 g/dL (3.5-5.1); Alkaline Phosphatase 98 U/L (38-126); Anion Gap 5 mmol/L (8-16); Aspartate Amino Transferase 25 U/L (14-36); Bilirubin,Total 0.6 mg/dL (0.2-1.3); Blood Urea Nitrogen 24 mg/dL (7-17); Calcium 9.3 mg/dL (8.4-10.2); Carbon Dioxide 33 mmol/L (22-30); Chloride 103 mmol/L (98-107); Estimated CRCL calculation 45 ml/min; Estimated Glomerular Filt Rate > 60; Glucose 159 mg/dL (65-105); Lipase 85 U/L (23-300); Magnesium 1.7 mg/dL (1.6-2.3); Potassium 4.6 mmol/L (3.4-5.0); Sodium 141 mmol/L (137-145)
[2021-01-31 07:22] LABS: Thyroid Stimulating Hormone Reflex 0.417 uIU/mL (0.465-4.68)
[2021-01-31 07:51] LABS: Free T4 Free Thyroxine Reflex 1.15 ng/dL (0.78-2.19)
[2021-01-31 08:31] LABS: Total Triiodothyronine (T3) 0.69 NG/ML (0.97-1.69)
--- NOTE | 2021-01-31 08:37 | PC.NURSE ---
On the request of the respiratory therapist, Ric Kwon RN called [facility] for her CPAP settings resulted from her previous sleep study. They requested that he call [facility] which left him on hold for 10 minutes with no option to leave a message. Patient states that she does not have a CPAP machine, only the mask and tubing used in her study.
[2021-01-31] MEDS: MAGNESIUM OXIDE 400 MG TABLET PO (09:40)
[2021-01-31] MEDS: allopurinoL 300 MG TABLET PO (09:40)
[2021-01-31] MEDS: DABIGATRAN ETEXILATE 75 MG CAPSULE PO ×2 (09:40→21:48)
[2021-01-31] MEDS: ASPIRIN 81 MG CHEWABLE TABLET PO (09:41)
[2021-01-31] MEDS: predniSONE 20 MG TABLET 60 MG PO (09:41)
[2021-01-31] MEDS: carvediloL 12.5 MG TABLET PO (09:41)
[2021-01-31] MEDS: COLCHICINE 0.6 MG TABLET PO ×2 (09:41→17:14)
[2021-01-31] MEDS: lisinopriL 20 MG TABLET PO (09:41)
--- NOTE | 2021-01-31 10:30 | PM.CNPUL ---
Assessment and Plan Assessment and plan (1) Obstructive sleep apnea: Code(s): G47.33 - Obstructive sleep apnea (adult) (pediatric) Status: Chronic Assessment and Plan: Patient with obstructive sleep apnea requiring CPAP 9 per titration on 12/21/2020. I have talked to the director of the pulmonary function lab and she will check with the Sleep Lab and [employer] to see if her home machine can be delivered to the hospital. If her home machine cannot be delivered I will write her for CPAP 9 with a hospital machine for tonight. (2) COPD (chronic obstructive pulmonary disease): Code(s): J44.9 - Chronic obstructive pulmonary disease, unspecified Status: Acute Assessment and Plan: Patient with increased shortness of breath, no phlegm production and no change in the volume of her phlegm. She was initially started on prednisone 60 mg p.o. q.day, albuterol neb and ipratropium nebs. Patient states that she has 60% back to normal now. There is no evidence of pneumonia or tracheobronchitis at this time and I do not feel there is a need for antibiotics. I will decrease her prednisone to 50 mg p.o. q.day, I will decrease her albuterol to 2.5 mg nebs q.6 hours and continue her ipratropium at 0.5 mg Q 6 hours. I will hold her Anoro Ellipta while she is receiving maximal doses albuterol and ipratropium. Patient states that she is near her baseline today and if she feels this well she feels she would be able to go home tomorrow. Will reassess tomorrow morning for possible discharge on 02/01. Will follow with you. (3) CHF (congestive heart failure): Qualifiers: Heart failure type: combined systolic and diastolic Heart failure chronicity: acute on chronic Qualified Code(s): I50.43 - Acute on chronic combined systolic (congestive) and diastolic (congestive) heart failure Code(s): I50.9 - Heart failure, unspecified Status: Chronic Assessment and Plan: Patient is being actively diuresed per her hospitalist team. History of Present Illness History of Present Illness Consult date: 01/31/21 Requesting physician: Marisol Cyr NP Reason for consult: COPD Chief complaint: chf/af w rvr/copd Narrative: This is a new pulmonary consult for COPD, hypoxia and obstructive sleep apnea. 80-year-old woman with a history of COPD, pulmonary hypertension, atrial fibrillation, congestive heart failure hypertension who presented to the emergency room on 01/30 with shortness of breath. Patient is followed in the Pulmonary Clinic and last seen on November 09, 2020 at that time her respiratory status was stable on Anoro Ellipta 1 puff q.day and an obstructive sleep apnea workup was initiated. Patient had a CPAP titration on 12/21/2020 which demonstrated that she required CPAP 9 with an air fit 30 fullface mask with an AHI of 1.1 and no desaturations. Patient was also noted to have limb movements and it was recommended to test the ferritin level. Patient stated Stephanie was her DME but has not heard from them and has no home CPAP setup. Previous data indicates that she had a PFT on 08/17/2020 which demonstrated a pre bronchodilator FVC of 2.38 L, 89% predicted. Prieb Murali pre bronchodilator FEV1 1.12 L, 61% predicted. FEV1: FVC ratio 47%. Post bronchodilator FVC is 2.29 L, representing 4% decrease. Post bronchodilator FEV1 was 1.02 L, representing an 8% decrease. The total lung capacity was 6.68 L 135% predicted. The functional residual capacity was 5.29 L, 183% predicted. The residual volume was 4.29 L, 203% predicted. The diffusing capacity was 12.5, 69% predicted. The diffusing capacity corrected for alveolar volume was 3.69, 110% predicted. I interpret this is a moderate obstructive abnormality without significant improvement after inhaled bronchodilator. There is air trapping and hyperventilation. The absolute diffusion capacity is mildly decreased but normalizes when corrected for alveo
[2021-01-31] MEDS: ALBUTEROL SULFATE NEB 2.5 MG/0.5 ML INH INHALATION ×2 (14:02→20:28)
--- NOTE | 2021-01-31 16:56 | PM.IMPN ---
Progress Note: A&P Assessment and Plan (1) CHF (congestive heart failure): Qualifiers: Heart failure type: combined systolic and diastolic Heart failure chronicity: acute on chronic Qualified Code(s): I50.43 - Acute on chronic combined systolic (congestive) and diastolic (congestive) heart failure Code(s): I50.9 - Heart failure, unspecified Status: Chronic Assessment and Plan: Acute on chronic systolic and diastolic CHF with pulmonary edema on CXR and BNP elevated at 6620. Continue diuresis with IV lasix. Monitor fluid status with daily weights, I&Os. Continue her home carvedilol and lisinopril. Low sodium diet and CHF teaching. Reviewed recent echo from Oct 2020 - EF 40-45%; mod-severe aortic stenosis, severe pulmonary HTN. Patient of Dr Greenwood. (2) COPD (chronic obstructive pulmonary disease): Code(s): J44.9 - Chronic obstructive pulmonary disease, unspecified Status: Acute Assessment and Plan: Patient of Dr Abreu. Appreciate Dr Sylvester's input today. Continue pulmonology recommendations with oral prednisone, bronchodilator therapy with duo nebs. He is helping gather information regarding her CPAP machine she was supposed to get. May benefit from home O2 evaluation at discharge if needed. (3) History of atrial fibrillation: Code(s): Z86.79 - Personal history of other diseases of the circulatory system Status: Acute Assessment and Plan: A fib, rate controlled at present. Continue her home carvedilol and Pradaxa. (4) Unspecified sleep apnea: Code(s): G47.30 - Sleep apnea, unspecified Status: Acute Assessment and Plan: Patient describes she had sleep studies that showed she required CPAP machine but never received machine. Dr Sylvester is helping look into this. (5) HTN (hypertension): Qualifiers: Hypertension type: essential hypertension Qualified Code(s): I10 - Essential (primary) hypertension Code(s): I10 - Essential (primary) hypertension Status: Chronic Assessment and Plan: BPs reviewed and stable this afternoon. Continue with Coreg and lisinopril. Monitor BP and adjust treatment as needed. (6) Gout: Code(s): M10.9 - Gout, unspecified Status: Chronic Assessment and Plan: No acute issues. Continue her home medications. (7) History of tobacco abuse: Code(s): Z87.891 - Personal history of nicotine dependence Status: Acute Assessment and Plan: Patient has been counseled on smoking cessation. The patient stated that she still continues to have an occasional cigarette. Subjective Date/time seen: 01/31/21 1500 Interval history: Ms. Aranda is an 80yo F with CHF and COPD admitted for shortness of breath. She reports feeling a bit better today. Shortness of breath a bit improved. Coughing but not bringing much mucus up. Denies chest pain. Tolerating meals without nausea or vomiting. She notes her biggest complication is that she needs to be set up with a CPAP machine. She also is frustrated she has not gotten her second COVID vaccine (first dose was 2 months ago she thinks) but admits she has not called the [facility] Department as suggested. Review of Systems Review of Systems: All systems reviewed & are unremarkable except as noted in HPI and below Exam Narrative: Exam Narrative: General: Female resting comfortably in semi-dominguez's position in bed in no acute distress. HEENT: Normocephalic, EOMI, oral mucosa tacky. Cardiovascular: Rate and rhythm are regular. Respiratory: Coarse breath sounds on expiration bilaterally. Respirations even and non-labored. No
[2021-01-31 23:21] LABS: Add Urine Microscopic? NO; Appearance Urine Clear (Clear); Bilirubin Urine Negative (Negative); Blood Urine Negative (Negative); Color Urine Yellow (Yellow); Glucose Urine UA Negative (Negative); Ketones Urine Negative (Negative); Leukocyte Esterase Ur Negative LEU/UL (Negative); Nitrate Urine Negative (Negative); Protein Urine Negative (Negative); Urobilinogen Urine Negative mg/dL (<2.0)
[2021-01-31 23:34] LABS: RBC Urine 0-2 /hpf (0-2); WBC Urine 0-3 /hpf
[2021-02-01] VITALS (18 sets, daily range): BP systolic 124–131; BP diastolic 60–90; PULSE 54–98; RESP 18–20; TEMP 36.4–36.9; O2SAT 91–97
[2021-02-01] MEDS: ALBUTEROL SULFATE NEB 2.5 MG/0.5 ML INH INHALATION ×4 (01:10→20:16)
[2021-02-01] MEDS: IPRATROPIUM BR 0.02% INH SOLN 0.5 MG/2.5 ML VIAL INHALATION ×4 (01:10→20:16)
[2021-02-01 06:30] LABS: Basophils Percent Auto 0.2 % (0.2-1.2); Hematocrit 43.9 % (37.0-47.0); Hemoglobin 14.4 g/dL (12.0-15.0); Immature Granulocyte Absolute 0.08 K/mm3 (0.00-0.031); Immature Granulocyte Percent A 0.5 % (0-0.5); Lymphocytes Absolute Auto 1.34 K/mm3 (0.9-3.2); Lymphocytes Percent Auto 8.3 % (18.3-44.2); Mean Corpuscular HGB Conc 32.8 g/dl (32-36); Mean Corpuscular Hemoglobin 32.7 pg (26-34); Mean Corpuscular Volume 99.8 fl (80-100); Mean Platelet Volume 10.4 fl (7.4-10.4); Monocytes Absolute Auto 1.2 K/mm3 (0.1-0.6); Monocytes Percent Auto 7.7 % (2.6-8.5); Neutrophils Absolute Auto 13.5 K/mm3 (1.3-6.7); Neutrophils Percent Auto 83.3 % (45.5-73.1); Platelet Count Result 178 k/mm3 (150-375); White Blood Count 16.1 K/mm3 (4.5-10.0)
[2021-02-01] MEDS: FUROSEMIDE INJ 40 MG/4 ML VIAL IV PUSH (06:38)
[2021-02-01 06:43] LABS: Anion Gap 1 mmol/L (8-16); Blood Urea Nitrogen 32 mg/dL (7-17); Calcium 8.6 mg/dL (8.4-10.2); Carbon Dioxide 33 mmol/L (22-30); Chloride 103 mmol/L (98-107); Estimated CRCL calculation 40 ml/min; Estimated Glomerular Filt Rate 60; Glucose 97 mg/dL (65-105); Magnesium 1.9 mg/dL (1.6-2.3); Potassium 4.5 mmol/L (3.4-5.0); Sodium 137 mmol/L (137-145)
--- NOTE | 2021-02-01 09:32 | PM.PNPUL ---
Progress Note: A&P Assessment and Plan (1) Obstructive sleep apnea: Code(s): G47.33 - Obstructive sleep apnea (adult) (pediatric) Status: Chronic Assessment and Plan: 01/31 Patient with obstructive sleep apnea requiring CPAP 9 per titration on 12/21/2020. I have talked to the director of the pulmonary function lab and she will check with the Sleep Lab and Stephanie to see if her home machine can be delivered to the hospital. If her home machine cannot be delivered I will write her for CPAP 9 with a hospital machine for tonight. 02/01 refused CPAP last night as had a rough day. Per patient Stephanie called and told travis that they would come today to the hospital and set up CPAP 9. (2) COPD (chronic obstructive pulmonary disease): Code(s): J44.9 - Chronic obstructive pulmonary disease, unspecified Status: Acute Assessment and Plan: COPD quit smoking 1.5 years ago, PFTs on 08/11/2020 with moderate obstructive abnormality wiht FEV 1 61%, without significant improvement after inhaled bronchodilator, with air trapping (RV 203%) and hyperinflation (FFV=249% and FRC =183%), CT chest 11/23/2020 with mild apical centrilobular and paraseptal emphysema, pulmonary hypertension by echo on 11/05/2020 at 71 and baseline TRINH walking to bathroom. 01/31 Patient with increased shortness of breath, no phlegm production and no change in the volume of her phlegm. She was initially started on prednisone 60 mg p.o. q.day, albuterol neb and ipratropium nebs. Patient states that she has 60% back to normal now. There is no evidence of pneumonia or tracheobronchitis at this time and I do not feel there is a need for antibiotics. I will decrease her prednisone to 50 mg p.o. q.day, I will decrease her albuterol to 2.5 mg nebs q.6 hours and continue her ipratropium at 0.5 mg Q 6 hours. I will hold her Anoro Ellipta while she is receiving maximal doses albuterol and ipratropium. Patient states that she is near her baseline today and if she feels this well she feels she would be able to go home tomorrow. Will reassess tomorrow morning for possible discharge on 02/01. 02/01 Patient improved and ambulating in room and close to baseline. Suitable for discharge today if her activity level permits. Would DC on these pulmonary medications: Prednisone 50 mg PO Q day X 3 more days. Anoro Ellipta 62.5/25 at 1 puff Q day Rescue albuterol 2 puffs Q 4 H PRN sob or wheezing oxygen per home O2 assessment CPAP 9 on room air to be set up by DME. Follow up in pulmonary clinic in 3 weeks. Will follow with you. (3) CHF (congestive heart failure): Qualifiers: Heart failure type: combined systolic and diastolic Heart failure chronicity: acute on chronic Qualified Code(s): I50.43 - Acute on chronic combined systolic (congestive) and diastolic (congestive) heart failure Code(s): I50.9 - Heart failure, unspecified Status: Chronic Assessment and Plan: Patient is being actively diuresed per her hospitalist team. 02/01 CXR with improved congestio from 01/30. Subjective Date/time seen: 02/01/21 09:32 Interval history: 80-year-old woman with a history of COPD, pulmonary hypertension, atrial fibrillation, congestive heart failure hypertension who presented to the emergency room on 01/30 with shortness of breath. Patient is followed in the Pulmonary Clinic and last seen on November 09, 2020 at that time her respiratory status was stable on Anoro Ellipta 1 puff q.day and an obstructive sleep apnea workup was initiated. Patient had a CPAP titration on 12/21/2020 which demonstrated that she required CPAP 9 with an air fit 30 fullface mask with an AHI of 1.1 and no desaturations. Patient was also noted to have limb movements and it was recommended to test the ferritin level. Patient stated Stephanie was her DME but has not heard from them and has no home CPAP setup. Previous data indicates that she had a PFT on 08/17
[2021-02-01] MEDS: MAGNESIUM OXIDE 400 MG TABLET PO (09:49)
[2021-02-01] MEDS: ASPIRIN 81 MG CHEWABLE TABLET PO (09:49)
[2021-02-01] MEDS: DABIGATRAN ETEXILATE 75 MG CAPSULE PO ×2 (09:49→20:42)
[2021-02-01] MEDS: predniSONE 10 MG TABLET 50 MG PO (09:49)
[2021-02-01] MEDS: COLCHICINE 0.6 MG TABLET PO ×2 (09:49→17:32)
[2021-02-01] MEDS: lisinopriL 20 MG TABLET PO (09:49)
[2021-02-01] MEDS: allopurinoL 300 MG TABLET PO (09:49)
[2021-02-01] MEDS: carvediloL 12.5 MG TABLET PO ×2 (09:51→20:43)
--- NOTE | 2021-02-01 12:52 | PM.IMPN ---
Progress Note: A&P Assessment and Plan (1) CHF (congestive heart failure): Qualifiers: Heart failure type: combined systolic and diastolic Heart failure chronicity: acute on chronic Qualified Code(s): I50.43 - Acute on chronic combined systolic (congestive) and diastolic (congestive) heart failure Code(s): I50.9 - Heart failure, unspecified Status: Chronic Assessment and Plan: Pt appears euvolemic and chest x-ray shows resolution of congestion -will stop IV Lasix and transition to 20 mg daily oral -Acute on chronic systolic and diastolic CHF with pulmonary edema on CXR and BNP elevated at 6620. -Continue her home carvedilol and lisinopril. -Low sodium diet and CHF teaching. Reviewed recent echo from Oct 2020 - EF 40-45%; mod-severe aortic stenosis, severe pulmonary HTN. -Patient of Dr Greenwood. (2) COPD (chronic obstructive pulmonary disease): Code(s): J44.9 - Chronic obstructive pulmonary disease, unspecified Status: Acute Assessment and Plan: -Continue oral prednisone with plans of tappering outpt -Patient of Dr Abreu, spoke with Dr Sylvester's today. -Home o2 eval placed -Continue pulmonology recommendations with oral prednisone, bronchodilator therapy with duo nebs. He is helping gather information regarding her CPAP machine and should be done today (3) History of atrial fibrillation: Code(s): Z86.79 - Personal history of other diseases of the circulatory system Status: Acute Assessment and Plan: Appears to be NSR right now. -Continue her home carvedilol and Pradaxa. (4) Unspecified sleep apnea: Code(s): G47.30 - Sleep apnea, unspecified Status: Acute Assessment and Plan: Awiating cpap (5) HTN (hypertension): Qualifiers: Hypertension type: essential hypertension Qualified Code(s): I10 - Essential (primary) hypertension Code(s): I10 - Essential (primary) hypertension Status: Chronic Assessment and Plan: Last bp 124/89 -Continue with Coreg and lisinopril. Monitor BP and adjust treatment as needed. (6) Gout: Code(s): M10.9 - Gout, unspecified Status: Chronic Assessment and Plan: No acute issues. Continue her home medications. (7) History of tobacco abuse: Code(s): Z87.891 - Personal history of nicotine dependence Status: Acute Assessment and Plan: Patient has been counseled on smoking cessation. The patient stated that she still continues to have an occasional cigarette. Subjective Date/time seen: 02/01/21 12:52 Interval history: Ms. Aranda is an 80yo F with CHF and COPD admitted for shortness of breath. Patient states she is feeling better compared to when she came in but is still not at her baseline. She feels like she is 60% better. She does okay at rest but if she moves or walks she feels short of breath. She does admit this is been going on for many months and does not really remember being normal . Today she denies chest pain, cough, nausea, vomiting, fevers, chills, diarrhea or constipation. Exam Narrative: Exam Narrative: General: Well-developed well-nourished patient walking from the bathroom to the bed in no acute distress HEENT: Normocephalic, EOMI, oral mucosa tacky. Cardiovascular: Rate and rhythm are regular. Respiratory: 1 L nasal cannula applied during ambulation. Decreased breath sounds throughout with some coarse lung sounds bilaterally Abdomen: Soft, non-tender, non-distended, bowel sounds present. Extremities: Peripheral pulses intact. No edema. Neuro: Alert and oriented x4. No focal neurological deficits. Speech is clear. Objective Data Vital Signs Vital Signs: Vital Signs - 24 hr 01/31/21 14:00 01/31/21 14:02 01/31/21 14:09 Temperature 97.9 F Pulse Rate 91 62 68 Respiratory Rate 20 20 20 Blood Pressure 110/58 L Pulse Oximetry 94 01/31/21 16:00 01/31/21
--- NOTE | 2021-02-01 16:28 | PCRCNOTE ---
Home O2 eval done, no home O2 required. Pt walked well with wheeled walker in [place] approx 400 feet. CPAP home unit in room, set up with Stephanie. RN aware.
[2021-02-02] VITALS (9 sets, daily range): BP systolic 146; BP diastolic 91; PULSE 54–85; RESP 16–18; TEMP 36.5; O2SAT 93–95
[2021-02-02] MEDS: ALBUTEROL SULFATE NEB 2.5 MG/0.5 ML INH INHALATION ×3 (01:50→13:21)
[2021-02-02] MEDS: IPRATROPIUM BR 0.02% INH SOLN 0.5 MG/2.5 ML VIAL INHALATION ×3 (01:50→13:21)
--- NOTE | 2021-02-02 09:24 | PM.PNPUL ---
Progress Note: A&P Assessment and Plan (1) Obstructive sleep apnea: Code(s): G47.33 - Obstructive sleep apnea (adult) (pediatric) Status: Chronic Assessment and Plan: 01/31 Patient with obstructive sleep apnea requiring CPAP 9 per titration on 12/21/2020. I have talked to the director of the pulmonary function lab and she will check with the Sleep Lab and Stephanie to see if her home machine can be delivered to the hospital. If her home machine cannot be delivered I will write her for CPAP 9 with a hospital machine for tonight. 02/01 refused CPAP last night as had a rough day. Per patient Stephanie called and told travis that they would come today to the hospital and set up CPAP 9. 02/02 Wore home CPAP 9 last night and did OK , she states she will be able to wear mask at home. Follow up in pulmonary clinic in 4 weeks for compliance check. (2) COPD (chronic obstructive pulmonary disease): Code(s): J44.9 - Chronic obstructive pulmonary disease, unspecified Status: Acute Assessment and Plan: COPD quit smoking 1.5 years ago, PFTs on 08/11/2020 with moderate obstructive abnormality wiht FEV 1 61%, without significant improvement after inhaled bronchodilator, with air trapping (RV 203%) and hyperinflation (BZR=224% and FRC =183%), CT chest 11/23/2020 with mild apical centrilobular and paraseptal emphysema, pulmonary hypertension by echo on 11/05/2020 at 71 and baseline TRINH walking to bathroom. 01/31 Patient with increased shortness of breath, no phlegm production and no change in the volume of her phlegm. She was initially started on prednisone 60 mg p.o. q.day, albuterol neb and ipratropium nebs. Patient states that she has 60% back to normal now. There is no evidence of pneumonia or tracheobronchitis at this time and I do not feel there is a need for antibiotics. I will decrease her prednisone to 50 mg p.o. q.day, I will decrease her albuterol to 2.5 mg nebs q.6 hours and continue her ipratropium at 0.5 mg Q 6 hours. I will hold her Anoro Ellipta while she is receiving maximal doses albuterol and ipratropium. Patient states that she is near her baseline today and if she feels this well she feels she would be able to go home tomorrow. Will reassess tomorrow morning for possible discharge on 02/01. 02/01 Patient improved and ambulating in room and close to baseline. Home O2 assessment indicates she does not need oxygen. 11/04 Suitable for discharge today. Would DC on these pulmonary medications: Prednisone 50 mg PO Q day X 2 more days. Anoro Ellipta 62.5/25 at 1 puff Q day Rescue albuterol 2 puffs Q 4 H PRN sob or wheezing CPAP 9 on room air. Follow up in pulmonary clinic in 4 weeks. (3) CHF (congestive heart failure): Qualifiers: Heart failure type: combined systolic and diastolic Heart failure chronicity: acute on chronic Qualified Code(s): I50.43 - Acute on chronic combined systolic (congestive) and diastolic (congestive) heart failure Code(s): I50.9 - Heart failure, unspecified Status: Chronic Assessment and Plan: Patient is being actively diuresed per her hospitalist team. 02/01 CXR with improved congestio from 01/30. Subjective Date/time seen: 02/02/21 09:24 Interval history: 80-year-old woman with a history of COPD, pulmonary hypertension, atrial fibrillation, congestive heart failure hypertension who presented to the emergency room on 01/30 with shortness of breath. Patient is followed in the Pulmonary Clinic and last seen on November 09, 2020 at that time her respiratory status was stable on Anoro Ellipta 1 puff q.day and an obstructive sleep apnea workup was initiated. Patient had a CPAP titration on 12/21/2020 which demonstrated that she required CPAP 9 with an air fit 30 fullface mask with an AHI of 1.1 and no desaturations. Patient was also noted to have limb movements and it was recommended to test the ferritin level. Patient stated Khris
[2021-02-02] MEDS: predniSONE 10 MG TABLET 50 MG PO (10:15)
[2021-02-02] MEDS: ASPIRIN 81 MG CHEWABLE TABLET PO (10:15)
[2021-02-02] MEDS: allopurinoL 300 MG TABLET PO (10:15)
[2021-02-02] MEDS: carvediloL 12.5 MG TABLET PO (10:16)
[2021-02-02] MEDS: COLCHICINE 0.6 MG TABLET PO (10:16)
[2021-02-02] MEDS: FUROSEMIDE 20 MG TABLET PO (10:17)
[2021-02-02] MEDS: lisinopriL 20 MG TABLET PO (10:17)
[2021-02-02] MEDS: DABIGATRAN ETEXILATE 75 MG CAPSULE PO (10:17)
[2021-02-02] MEDS: MAGNESIUM OXIDE 400 MG TABLET PO (10:17)
--- NOTE | 2021-02-02 11:09 | PCOTNOTE ---
Attempted to see patient this am, however patient declined due to discharge today. Pt had no concerns as pertains to OT prior to discharge. Pt states shes been using bathroom without problems and plans to take a good shower when I get home.
--- NOTE | 2021-02-02 12:36 | PM.DS ---
DS: Admitting Diagnosis Admitting Diagnosis Admitting Diagnosis: COPD and CHF exacerbation DS: Discharge Diagnosis Discharge Diagnosis (1) CHF (congestive heart failure): Qualifiers: Heart failure type: combined systolic and diastolic Heart failure chronicity: acute on chronic Qualified Code(s): I50.43 - Acute on chronic combined systolic (congestive) and diastolic (congestive) heart failure Code(s): I50.9 - Heart failure, unspecified Status: Chronic Assessment and Plan: Pt appears euvolemic and chest x-ray shows resolution of congestion -home lasix 10mg adjusted to 20mg at discharge -Pt follows Dr. Greenwood, she was instructed to f/u with him after discharge -Continue her home carvedilol and lisinopril. -EF 40-45%; mod-severe aortic stenosis, severe pulmonary HTN. (2) COPD (chronic obstructive pulmonary disease): Code(s): J44.9 - Chronic obstructive pulmonary disease, unspecified Status: Acute Assessment and Plan: -Continue oral prednisone with tapering outpt -Patient of Dr Abreu, and her team was consulted during hospitalization and will follow him outpt -pt had a home o2 evaluation which showed no o2 requirement -cpap ordered and at bedside. (3) History of atrial fibrillation: Code(s): Z86.79 - Personal history of other diseases of the circulatory system Status: Acute Assessment and Plan: afib with controlled rate on exam -Continue her home carvedilol and Pradaxa. (4) Unspecified sleep apnea: Code(s): G47.30 - Sleep apnea, unspecified Status: Acute Assessment and Plan: Continue cpap (5) HTN (hypertension): Qualifiers: Hypertension type: essential hypertension Qualified Code(s): I10 - Essential (primary) hypertension Code(s): I10 - Essential (primary) hypertension Status: Chronic Assessment and Plan: Last bp 146/91 -Continue with Coreg and lisinopril. (6) Gout: Code(s): M10.9 - Gout, unspecified Status: Chronic Assessment and Plan: No acute issues. Continue her home medications. (7) History of tobacco abuse: Code(s): Z87.891 - Personal history of nicotine dependence Status: Acute Assessment and Plan: Patient has been counseled on smoking cessation. The patient stated that she still continues to have an occasional cigarette. DS: Summary Hospital Course Hospital Course: Female who presented emergency room on the January 30, 2021 for a for exertional dyspnea surgery and shortness of breath. Vitals in the ER were temperature 36.6? C, pulse 95, respiratory rate 20, blood pressure 140/77, pulse ox 96. White blood cell count 9.1, hemoglobin 15.2, hemoglobin 47.0, platelets 159. BMP within normal limits. Chest x-ray showed likely CHF exacerbation with chronic hyperinflation and small right pleural effusion. Patient was admitted to the hospitalist service and started on steroids and Lasix. Patient improved on this therapy and was seen by pulmonology who followed her throughout her stay. The patient progressively improved and required less and less oxygen and the day of discharge did not require any oxygen on her home oxygen evaluation. She has untreated sleep apnea and was in the process of getting a CPAP. While she was here, pulmonology was able to get that set up and the CPAP was the liver to the hospital. On her last night of admission, she was able to wear without any issue and felt comfortable the next morning. Overall, the patient had improved since admission but still suffers from chronic COPD and is going to follow up with pulmonology outpatient. Repeat chest x-ray showed resolution of CHF and her Lasix was increased at discharge. She is to follow-up with Dr. Greenwood. She was educated about the worrisome signs and symptoms to come back to emergency room for was discharged stable condition. Time Spent with Patient Ti
== END 2021-02-02 14:10 | disposition home or self-care (01) | DRG 293 ==
LOC: ANHED 14:06 → ANH3MEDSUR 15:47
PROVIDERS: Nurse Practitioner; Physician Assistant; Admitting Provider Internal Medicine; Emergency Provider Emergency Medicine; PCP Internal Medicine; Visit Provider Physician Assistant
DX: I11.0 Hypertensive heart disease with heart failure (principal); I50.43 Acute on chronic combined systolic (congestive) and diastolic (congestive) heart failure; I27.20 Pulmonary hypertension, unspecified; I48.91 Unspecified atrial fibrillation; I35.0 Nonrheumatic aortic (valve) stenosis; G47.33 Obstructive sleep apnea (adult) (pediatric); J44.9 Chronic obstructive pulmonary disease, unspecified; M10.9 Gout, unspecified; Z79.899 Other long term (current) drug therapy; Z85.828 Personal history of other malignant neoplasm of skin; Z87.891 Personal history of nicotine dependence
CPT/HCPCS: 36415; 71046; 80048; 80053; 81003; 83690; 83735; 83880; 84439; 84443; 84480; 84484; 85025; 93005; 94618; 94640; 96374; 96375; 97110; 97161; 97165; 97530; 99285; A9270; J1100; J1940; J7512

== ENCOUNTER 2021-04-10 13:42 | Inpatient (IN) | payer MEDICARE, SELFPAY ==
[2021-04-10] VITALS (8 sets, daily range): BP systolic 118–137; BP diastolic 59–87; PULSE 51–89; RESP 16–20; TEMP 36.1–36.3; O2SAT 94–97; BMI 31.1
--- NOTE | ~2021-04-10 | US_ITS ---
EXAMINATION: US venous doppler UE DATE: 04/11/2021 15:29 INDICATION: Left upper limb swelling. TECHNIQUE: Grayscale ultrasound images without and with compression and Doppler ultrasound images of the left upper extremity veins were obtained. COMPARISON: None. FINDINGS: The visualized portions of the left internal jugular vein, subclavian vein, axillary vein, brachial v eins, basilic vein, cephalic vein, radial vein, and ulnar vein are patent. IMPRESSION: 1. No deep venous thrombosis. Reviewed, dictated and finalized at location A.
--- NOTE | ~2021-04-10 | US_ITS ---
EXAMINATION: US venous doppler [facility] DATE: 04/11/2021 15:30 INDICATION: Lower limb pain. TECHNIQUE: Grayscale ultrasound images without and with compression and Doppler ultrasound images of the bilateral lower extremity veins were obtained. COMPARISON: Ultrasound 05/27/2019 FINDINGS: The visualized portions of right common femoral vein, profunda (deep) femoral vein, femoral vein, pop liteal vein, peroneal veins, posterior tibial veins, and greater saphenous vein outflow are patent. The visualized portions of left common femoral vein, profunda femoral vein, femoral vein, popliteal v ein, peroneal veins, posterior tibial veins, and greater saphenous vein outflow are patent. IMPRESSION: 1. No deep venous thrombosis. Reviewed, dictated and finalized at location A.
--- NOTE | ~2021-04-10 | XR_ITS ---
EXAMINATION: XR chest 2V DATE: 04/10/2021 14:13 INDICATION: Shortness of breath TECHNIQUE: Frontal and lateral views of the chest are obtained COMPARISON: 02/01/2021 FINDINGS: There is persistent right middle lobe collapse. Minimal bibasilar airspace opacities are no madeline. There are trace pleural effusions. No pneumothorax is identified. Cardiomegaly is noted. There i s moderate thoracic spondylosis. Internal stabilization hardware spans old left-sided rib fractures. IMPRESSION: 1. Persistent right middle lobe collapse. 2. Cardiomegaly. 3. Small pleural effusions. Reviewed, dictated and finalized at location A.
--- NOTE | ~2021-04-10 | XR_ITS ---
XR chest 2V 04/13/2021 11:42 Indication: Shortness of breath. COPD. Procedure: PA and lateral views of the chest Comparison: Comparison to multiple prior studies sequentially, with oldest reviewed study dated 09/21. Findings: Cardiomegaly. There is atherosclerosis and ectasia of aorta. There are surgical changes in multiple left ribs. No focal air space disease, pulmonary edema, pleural effusion or suspected pneumo thorax. Impression: 1: No acute cardiopulmonary disease. Reviewed, dictated and finalized at location B. Impression: 1: No acute cardiopulmonary disease.
--- NOTE | 2021-04-10 13:48 | ECG_ITS ---
Measurements Intervals [place] Rate: 80 P: [place]: 0 QRS: 38 QRSD: 106 T: 34 QT: 381 QTc: 441 Interpretive Statements ATRIAL FIBRILLATION FREQUENT VENTRICULAR PREMATURE COMPLEXES INCOMPLETE RIGHT BUNDLE BRANCH BLOCK BORDERLINE R WAVE PROGRESSION, ANTERIOR LEADS BASELINE ARTIFACT- I, II, III, AVR, AVL, AVF, V1-V3 ABNORMAL ECG Electronically Signed On 04-10-2021 19:27:06 CDT by John Greenwood D.O.
[2021-04-10 14:11] LABS: Basophils Absolute Auto 0.1 K/mm3 (0.0-0.1); Basophils Percent Auto 0.9 % (0.2-1.2); Eosinophils Absolute Auto 0.2 K/mm3 (0-0.3); Eosinophils Percent Auto 2.9 % (0-4.4); Hematocrit 43.1 % (37.0-47.0); Immature Granulocyte Absolute 0.03 K/mm3 (0.00-0.031); Immature Granulocyte Percent A 0.4 % (0-0.5); Lymphocytes Absolute Auto 1.47 K/mm3 (0.9-3.2); Lymphocytes Percent Auto 21.2 % (18.3-44.2); Mean Corpuscular HGB Conc 32.5 g/dl (32-36); Mean Corpuscular Hemoglobin 32.6 pg (26-34); Mean Corpuscular Volume 100.2 fl (80-100); Mean Platelet Volume 10.3 fl (7.4-10.4); Monocytes Absolute Auto 0.9 K/mm3 (0.1-0.6); Monocytes Percent Auto 13.1 % (2.6-8.5); Neutrophils Absolute Auto 4.3 K/mm3 (1.3-6.7); Neutrophils Percent Auto 61.5 % (45.5-73.1); Platelet Count Result 152 k/mm3 (150-375); Red Cell Distribution Width 14.9 % (11.5-14.5); White Blood Count 6.9 K/mm3 (4.5-10.0)
[2021-04-10 14:22] LABS: Anion Gap 5 mmol/L (8-16); Blood Urea Nitrogen 17 mg/dL (7-17); Calcium 8.8 mg/dL (8.4-10.2); Carbon Dioxide 30 mmol/L (22-30); Chloride 105 mmol/L (98-107); Estimated CRCL calculation 45 ml/min; Estimated Glomerular Filt Rate > 60; Glucose 107 mg/dL (65-105); Potassium 4.1 mmol/L (3.4-5.0); Sodium 140 mmol/L (137-145)
[2021-04-10] MEDS: IPRATROPIUM BR 0.02% INH SOLN 0.5 MG/2.5 ML VIAL INHALATION (16:22)
[2021-04-10] MEDS: ALBUTEROL SULFATE NEB 2.5 MG/0.5 ML INH INHALATION ×2 (16:22→17:38)
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
[2021-04-10] MEDS: methylPREDNISolone SOD SUCC 125 MG VIAL IV PUSH (17:46)
[2021-04-10 18:17] LABS: D Dimer 0.42 ug/mL (<0.48)
--- NOTE | 2021-04-10 19:00 | PC.NURSE ---
Called Ling bell, added on BNP and Trop I 190
[2021-04-10 19:26] LABS: NT Pro B Type Natriuretic Pept 5480 pg/mL (5-100); Troponin I < 0.012 ng/mL (0.000-0.034)
[2021-04-10] MEDS: FUROSEMIDE INJ 40 MG/4 ML VIAL IV PUSH (20:07)
--- NOTE | 2021-04-10 21:08 | ADMGEN ---
This patient, Giselle Aranda, was admitted to Medical Room 240-. Patient/family oriented to hospital policies and general routines including ID bracelet, bed and alarms, visiting hours, pain management, procedures, bathroom and other care routines, personal items, smoking policy, room service/diet, and visiting hours. Information on how to activate the Rapid Response Team has been discussed. Patient/Family are encouraged to report perceived risks to care and to ask questions if they do not understand what they are told or what they should do.
[2021-04-10 22:09] LABS: Troponin I < 0.012 ng/mL (0.000-0.034)
[2021-04-11] VITALS (29 sets, daily range): BP systolic 113–147; BP diastolic 63–92; PULSE 53–104; RESP 16–23; TEMP 36.1–36.9; O2SAT 86–98
--- NOTE | 2021-04-11 00:12 | PM.IMHP ---
H&P: HPI History of Present Illness Date/Time: 04/10/21 2457 this is a 80-year-old female patient who resides with her at home. She has a history of COPD and CHF. The patient stated that she quit smoking approximately 32 days ago. The patient stated that she has been taking all her medications as prescribed. The patient recently received her CPAP and has been using her CPAP at night and also when she takes naps during the day. She says she is tolerating it quite well. The patient is chronically short of breath. However she has become more short of breath over the last few days. She has had no chest pain or cough. No fever chills. White count is normal. D-dimer was normal and troponin was normal. However BNP was listed as 5480. On 11/05/2020 of this year. It was read by Dr. puri as a following 1. Complete two-dimensional, color flow and Doppler transthoracic echocardiogram is performed. 2. Left ventricular chamber dimension is mildly enlarged. 3. Left ventricular systolic function is mildly reduced, estimated at 45-50%. 4. There is moderately increased left ventricular wall thickness. 5. Left ventricular septal wall motion is abnormal with septal motion related to bundle branch block. 6. The left ventricular diastolic function is abnormal. 7. E/e' 16 is elevated. 8. Global longitudinal strain is abnormal at -9.2%. 9. Right ventricular systolic function is reduced based on TAPSE of 1.1 cm.. 10. Left atrial chamber dimension is moderately enlarged. 11. Right atrial chamber dimension is severely enlarged. 12. The aortic valve is not well visualized. 13. There is severe aortic valve sclerosis. 14. There is trace aortic valve regurgitation. 15. There is moderate to severe aortic valve stenosis. Based on valve gradients of peak 22 mmHg and mean gradient 12 mmHg and peak velocity of 2.9 m/s suggests that aortic stenosis is not severe. Valve area was not calculated. Consider EMANI for accurate measurement of valve area. 16. The mitral valve has mildly thickened leaflets and moderately calcified annulus. 17. There is moderate mitral valve regurgitation. 18. There is moderate tricuspid valve regurgitation. 19. Severe pulmonary hypertension, estimated pulmonary arterial systolic pressure is 71 mmHg. 20. There is trace pulmonic regurgitation. 21. Small atheroma in anterior and posterior aortic root. 22. Dilated inferior vena cava with <50% collapse upon inspiration consistent with significantly elevated right atrial pressure, 15 mmHg. The patient was started on IV Lasix, Solu-Medrol and neb treatments in the emergency room. The patient is being admitted to observation status on the date of service of 04/10/2021. Chief Complaint: Short of breath Review of Systems Review of Systems: All systems reviewed & are unremarkable except as noted in HPI and below Constitutional: Constitutional: Reports as per HPI and Reports no additional constitutional complaints Eyes: Eyes: Reports as per HPI and Reports no additional eye complaints ENT: Reports system reviewed and no additional complaints, except as documented and Reports Normal hearing present Cardiovascular: Cardiovascular: Reports no additional cardiovascular complaints Respiratory: Respiratory: Reports no additional respiratory complaints and Reports no additional respiratory complaints Gastrointestinal: Gastrointestinal: Reports as per HPI and Reports no additional gastrointestinal complaints Musculoskeletal: Musculoskeletal: Reports no additional musculoskeletal complaints Integumentary/Breasts: Skin/Breast: Reports system reviewed and no additional complaints, except as docu and Reports as per HPI Neurologic: Reports system reviewed and no additional complaints, except as documented, Reports as per HPI and Reports Normal hearing present Psychiatric: Psychiatric: Reports no additional psychiatric complaints and Reports as per HPI Endocrine: En
[2021-04-11 01:13] LABS: Troponin I < 0.012 ng/mL (0.000-0.034)
[2021-04-11] MEDS: ALBUTEROL SULFATE NEB 2.5 MG/0.5 ML INH INHALATION ×4 (01:25→20:10)
[2021-04-11] MEDS: IPRATROPIUM BR 0.02% INH SOLN 0.5 MG/2.5 ML VIAL INHALATION ×4 (01:25→20:10)
[2021-04-11] MEDS: methylPREDNISolone SOD SUCC 125 MG VIAL 60 MG IV PUSH ×3 (05:23→21:17)
[2021-04-11 05:29] LABS: Basophils Percent Auto 0.2 % (0.2-1.2); Hemoglobin 14.8 g/dL (12.0-15.0); Immature Granulocyte Absolute 0.02 K/mm3 (0.00-0.031); Immature Granulocyte Percent A 0.3 % (0-0.5); Lymphocytes Absolute Auto 0.59 K/mm3 (0.9-3.2); Lymphocytes Percent Auto 9.8 % (18.3-44.2); Mean Corpuscular HGB Conc 32.9 g/dl (32-36); Mean Corpuscular Hemoglobin 32.4 pg (26-34); Mean Corpuscular Volume 98.5 fl (80-100); Mean Platelet Volume 10.7 fl (7.4-10.4); Monocytes Absolute Auto 0.1 K/mm3 (0.1-0.6); Monocytes Percent Auto 1.8 % (2.6-8.5); Neutrophils Absolute Auto 5.3 K/mm3 (1.3-6.7); Neutrophils Percent Auto 87.9 % (45.5-73.1); Platelet Count Result 166 k/mm3 (150-375); Red Blood Count 4.57 M/mm3 (4.2-5.4); Red Cell Distribution Width 14.6 % (11.5-14.5)
[2021-04-11 05:47] LABS: Alanine Aminotransferase 19 U/L (4-35); Albumin Level 3.8 g/dL (3.5-5.1); Alkaline Phosphatase 99 U/L (38-126); Anion Gap 7 mmol/L (8-16); Aspartate Amino Transferase 25 U/L (14-36); Bilirubin,Total 0.6 mg/dL (0.2-1.3); Blood Urea Nitrogen 19 mg/dL (7-17); Calcium 9.4 mg/dL (8.4-10.2); Carbon Dioxide 30 mmol/L (22-30); Chloride 103 mmol/L (98-107); Estimated CRCL calculation 54 ml/min; Estimated Glomerular Filt Rate > 60; Glucose 205 mg/dL (65-105); Potassium 4.6 mmol/L (3.4-5.0); Sodium 140 mmol/L (137-145)
[2021-04-11] MEDS: allopurinoL 300 MG TABLET PO (09:39)
[2021-04-11] MEDS: COLCHICINE 0.6 MG TABLET PO ×2 (09:39→16:41)
[2021-04-11] MEDS: lisinopriL 20 MG TABLET PO (09:40)
[2021-04-11] MEDS: carvediloL 12.5 MG TABLET PO ×2 (09:40→16:41)
[2021-04-11] MEDS: ENOXAPARIN 40 MG/0.4 ML SYRINGE SUB-Q (09:40)
[2021-04-11] MEDS: FUROSEMIDE INJ 40 MG/4 ML VIAL IV PUSH (09:40)
--- NOTE | 2021-04-11 12:43 | HOMEO2EVAL ---
Evaluation was performed at [facility] Home Oxygen Evaluation RC: Home Oxygen (O2) Evaluation Start: 04/11/21 00:28 Freq: ONCE Status: Active Protocol: RPE Activity Type Activity Date Activity User E-Sign Co-Sign Detail Recorded Client Recorded Date Recorded By Document 04/11/21 11:15 DJO [email or web address] 04/11/21 12:43 DJO Document 04/11/21 11:20 [email or web address] [email or web address] 04/11/21 12:43 DJO Document 04/11/21 11:25 [email or web address] [email or web address] 04/11/21 12:43 DJO Document 04/11/21 11:30 [email or web address] [email or web address] 04/11/21 12:43 DJO Document 04/11/21 11:45 [email or web address] [email or web address] 04/11/21 12:43 DJO 04/11/21 04/11/21 04/11/21 11:15 11:20 11:25 Home O2 Evaluation Test Phase Resting Exercise Exercise Oxygen Delivery Room Air Room Air Nasal Cannula Oxygen Flow Rate (L/min) 1 Pulse Oximetry (90-100 %) 93 86 L 88 L Pulse Rate (60-100 beats/min) 65 94 92 Activity Tolerance Ambulation Distance (feet) Treatment Charges O2 Evaluation - Inpatient 04/11/21 04/11/21 11:30 11:45 Home O2 Evaluation Test Phase Exercise Resting Oxygen Delivery Nasal Cannula Room Air Oxygen Flow Rate (L/min) 2 Pulse Oximetry (90-100 %) 90 93 Pulse Rate (60-100 beats/min) 91 68 Activity Tolerance Good Ambulation Distance (feet) 500 Treatment Charges
--- NOTE | 2021-04-11 12:52 | PCRCNOTE ---
HOME O2 EVAL COMPLETE, 2 LITERS WITH ACTIVITY. SET UP WITH [facility] PHONE NUMBER [phone]. TANK TO BE DELIVERED TODAY FOR POSSIBLE DISCHARGE TOMORROW.
--- NOTE | 2021-04-11 18:31 | PM.IMPN ---
Progress Note: A&P Assessment and Plan (1) Acute exacerbation of chronic obstructive pulmonary disease (COPD): Code(s): J44.1 - Chronic obstructive pulmonary disease with (acute) exacerbation Status: Acute Assessment and Plan: Pt continues to have wheezing and hypoxia with ambulation. She also gets SOB when she speaks for long periods of times. She says this has only been going on for a few weeks -Continue IV steroids and o2 with ambulation -d-dimer negative, PE less likely -No signs of PNA -Continue Anoro, albuterol and atrovent -No pulmonology consulted needed at this time as she has an outpt follow up in about a week or so. Will reconsider this if pt worsenes -Pt has quit smoking about 30 days ago -Continue cpap -echo from 2020 shows severe pulmonary HTN (2) CHF (congestive heart failure): Qualifiers: Heart failure chronicity: acute on chronic Heart failure type: combined systolic and diastolic Qualified Code(s): I50.43 - Acute on chronic combined systolic (congestive) and diastolic (congestive) heart failure Code(s): I50.9 - Heart failure, unspecified Status: Acute Assessment and Plan: Appears pretty euvolemic -Continue with lasix, lisinopril and Coreg -EF on the last echo from 10/2020 shows an EF of 45-50% -Obtain limited echo to reassess EF and aortic valve since pt is having new symptoms in the last few weeks -bnp less elevated than last stay but still elevated. No CP . (3) Obstructive sleep apnea: Code(s): G47.33 - Obstructive sleep apnea (adult) (pediatric) Status: Chronic Assessment and Plan: Continue cpap -Pt is doing well with this and has found a lot of relief with it (4) History of atrial fibrillation: Code(s): Z86.79 - Personal history of other diseases of the circulatory system Status: Acute Assessment and Plan: Rate controlled -Will speak to her about her hx of anticoagulation since she was on pradaxa last time I saw her (5) History of tobacco abuse: Code(s): Z87.891 - Personal history of nicotine dependence Status: Acute Assessment and Plan: Patient stated that she quit smoking 32 days ago. I have encouraged to continue with smoking cessation. (6) Gout: Code(s): M10.9 - Gout, unspecified Status: Chronic Assessment and Plan: Continue with colchicine (7) HTN (hypertension): Qualifiers: Hypertension type: essential hypertension Qualified Code(s): I10 - Essential (primary) hypertension Code(s): I10 - Essential (primary) hypertension Status: Chronic Assessment and Plan: Last bp 130/66 -Continue with Coreg and lisinopril Time Spent With Patient Time with patient: 25 - 35 minutes Subjective Date/time seen: 04/11/21 18:31 Interval history: Pt is a 80 y/o female here for SOB. She staes her SOB is better but she is still short of breath even with talking. She has been able to go to the bathroom and back but requires o2 since she drops in the 80s when she does so. She does think she is getting close to her 'baseline' and states she feels like she has had SOB for years. She sees Dr. Abreu and her next appointment is the 30th or some time around there. She has been using her cpap and she loves it. She says she has never gotten better sleep and feels refreshed. She denies cough, cp, nausea, or vomiting. She is eating and drinking well. Review of Systems Review of Systems: All systems reviewed & are unremarkable except as noted in HPI and below Exam Narrative: Exam Narrative: General: Well developed well nourished patient in NAD HEENT: normocephalic, nasal canula applied Neck: supple Neuro: Alert and oriented x 4 CV: irregularly irregular with controlled rate and slight murmur. tele shows frequent PVCs and afib with a controlled rate around 90. Resp:decreased breath sounds with wheezing Abd: Soft, non dis
[2021-04-12] VITALS (25 sets, daily range): BP systolic 112–146; BP diastolic 47–87; PULSE 58–104; RESP 16–24; TEMP 36.1–36.3; O2SAT 63–98
[2021-04-12] MEDS: ALBUTEROL SULFATE NEB 2.5 MG/0.5 ML INH INHALATION ×3 (01:56→14:40)
[2021-04-12] MEDS: IPRATROPIUM BR 0.02% INH SOLN 0.5 MG/2.5 ML VIAL INHALATION ×4 (01:56→21:03)
[2021-04-12] MEDS: methylPREDNISolone SOD SUCC 125 MG VIAL 60 MG IV PUSH ×3 (05:13→21:33)
[2021-04-12 05:50] LABS: Anion Gap 8 mmol/L (8-16); Blood Urea Nitrogen 26 mg/dL (7-17); Calcium 9.3 mg/dL (8.4-10.2); Carbon Dioxide 30 mmol/L (22-30); Chloride 104 mmol/L (98-107); Estimated CRCL calculation 54 ml/min; Estimated Glomerular Filt Rate > 60; Glucose 144 mg/dL (65-105); Potassium 4.6 mmol/L (3.4-5.0); Sodium 142 mmol/L (137-145)
[2021-04-12] MEDS: allopurinoL 300 MG TABLET PO (08:32)
[2021-04-12] MEDS: carvediloL 12.5 MG TABLET PO ×2 (08:32→16:34)
[2021-04-12] MEDS: lisinopriL 20 MG TABLET PO (08:33)
[2021-04-12] MEDS: ENOXAPARIN 40 MG/0.4 ML SYRINGE SUB-Q (08:33)
[2021-04-12] MEDS: FUROSEMIDE INJ 40 MG/4 ML VIAL IV PUSH (08:33)
[2021-04-12] MEDS: COLCHICINE 0.6 MG TABLET PO ×2 (08:33→16:34)
--- NOTE | 2021-04-12 15:13 | PM.IMPN ---
Progress Note: A&P Assessment and Plan (1) Acute exacerbation of chronic obstructive pulmonary disease (COPD): Code(s): J44.1 - Chronic obstructive pulmonary disease with (acute) exacerbation Status: Acute Assessment and Plan: Pt continues to have wheezing and hypoxia with ambulation. She also gets SOB when she speaks for long periods of times. She says this has only been going on for a few weeks. Today is sounds like she had a broncospasm -Continue IV steroids and o2 with ambulation -d-dimer negative, PE less likely -No signs of PNA, repeat CXR tomorrow -Continue Anoro, albuterol and atrovent -No pulmonology consulted needed at this time as she has an outpt follow up in about a week or so. Will reconsider this if pt worsens -Pt has quit smoking about 30 days ago -Continue cpap -echo from 2020 shows severe pulmonary HTN (2) CHF (congestive heart failure): Qualifiers: Heart failure chronicity: acute on chronic Heart failure type: combined systolic and diastolic Qualified Code(s): I50.43 - Acute on chronic combined systolic (congestive) and diastolic (congestive) heart failure Code(s): I50.9 - Heart failure, unspecified Status: Acute Assessment and Plan: Appears pretty euvolemic but does have crackles -Continue with lasix, lisinopril and Coreg -EF on the last echo from 10/2020 shows an EF of 45-50% -Obtain limited echo to reassess EF and aortic valve since pt is having new symptoms in the last few weeks -bnp less elevated than last stay but still elevated. No CP . (3) Obstructive sleep apnea: Code(s): G47.33 - Obstructive sleep apnea (adult) (pediatric) Status: Chronic Assessment and Plan: Continue cpap -Pt is doing well with this and has found a lot of relief with it (4) History of atrial fibrillation: Code(s): Z86.79 - Personal history of other diseases of the circulatory system Status: Acute Assessment and Plan: Rate controlled -patient states she takes Pradaxa at home and it must have not made her home medication list. Will restart tonight (5) History of tobacco abuse: Code(s): Z87.891 - Personal history of nicotine dependence Status: Acute Assessment and Plan: Patient stated that she quit smoking 32 days ago. I have encouraged to continue with smoking cessation. (6) Gout: Code(s): M10.9 - Gout, unspecified Status: Chronic Assessment and Plan: Continue with colchicine (7) HTN (hypertension): Qualifiers: Hypertension type: essential hypertension Qualified Code(s): I10 - Essential (primary) hypertension Code(s): I10 - Essential (primary) hypertension Status: Chronic Assessment and Plan: Last bp 127/61 -Continue with Coreg and lisinopril Subjective Date/time seen: 04/12/21 15:13 Interval history: Pt is a 80 y/o female here for SOB. She states she had a really hard time this morning. She said she had a coughing fit that made her short of breath and then it made her anxious. She had no chest pain during that time. It resolved with the breathing treatment. She denies any choking but thinks it was the syrup that caused her coughing. She denies nausea, vomiting, diarrhea, or abdominal pain. Exam Narrative: Exam Narrative: General: Well developed well nourished patient in NAD HEENT: normocephalic Neck: supple Neuro: Alert and oriented x 4 CV: irregularly irregular with controlled rate and slight murmur. tele shows frequent PVCs and afib with a controlled rate around 90. Resp:decreased breath sounds with slight wheezing and crackles at the bases Abd: Soft, non distended. No pain to palpation. Positive bowel sounds Extremities: No swelling, erythema, or pain to palpation. Objective Data Vital Signs Vital Signs: Vital Signs - 24 hr 04/11/21 15:35 04/11/21 15:45 04/11/21 16:00 Temperature Pulse Rat
[2021-04-12] MEDS: DABIGATRAN ETEXILATE 75 MG CAPSULE PO (21:32)
[2021-04-13] VITALS (22 sets, daily range): BP systolic 130–149; BP diastolic 65–85; PULSE 50–100; RESP 16–22; TEMP 36.1–36.4; O2SAT 91–97
--- NOTE | 2021-04-13 | ECHO_ITS ---
Patient Info Name: Giselle Aranda Age: 80 years : 1940 Gender: Female Ht: 66 in Wt: 193 lbs BSA: 2.05 m2 HR: 108 bpm BP: 167 / 70 mmHg Technical Quality: Good Exam Date: 04/13/2021 9:57 AM Exam Location: [facility] Pulmonary Patient Status: Inpatient Admit Date: 04/11/2021 Staff Ordering Physician: Gabby Smith PA-C Insulation Hoseman: John Wynn RDCS, RT Attending Provider: Gabby Smith PA-C Referring Physician: Sarah HAWK; Exam Type: CA echo doppler color flow Study Info Indications R06.00 - Dyspnea, unspecified Complete two-dimensional, color flow and Doppler transthoracic echocardiogram is performed. Strain analysis performed. Summary 1. Complete two-dimensional, color flow and Doppler transthoracic echocardiogram is performed. 2. Left ventricular chamber dimension is normal. 3. Left ventricular systolic function is normal, estimated at 60-65%. 4. There is moderately increased left ventricular wall thickness. 5. The left ventricular diastolic function is abnormal. 6. E/e' 13 is mildly elevated. 7. Global longitudinal strain is abnormal at -13.4%. 8. Right ventricular systolic function is reduced based on abnormal TAPSE 1.3 cm. 9. Left atrial chamber dimension is severely enlarged. 10. Right atrial chamber dimension is severely enlarged. 11. There is severe aortic valve sclerosis. 12. There is trace aortic valve regurgitation. 13. There is moderate to severe aortic valve stenosis based on a peak velocity of 307 cm/s, mean gradient of 25 mmHg, and aortic valve area of 1.0 cm2. By planimetry, Aortic valve area is 0.9 cm2. 14. The mitral valve has moderately calcified annulus. 15. There is mild to moderate mitral valve regurgitation. 16. There is moderate tricuspid valve regurgitation. 17. Moderate pulmonary hypertension, estimated pulmonary arterial systolic pressure is 50 mmHg. 18. There is trace pulmonic regurgitation. 19. Dilated inferior vena cava with >50% collapse upon inspiration consistent with elevated right atrial pressure, 10 mmHg. Left Ventricle E/e' 13 is mildly elevated. Global longitudinal strain is abnormal at -13.4%. Left ventricular chamber dimension is normal. Left ventricular systolic function is normal, estimated at 60-65%. There is moderately increased left ventricular wall thickness. The left ventricular diastolic function is abnormal. Right Ventricle Right ventricular systolic function is reduced based on abnormal TAPSE 1.3 cm. Right ventricular chamber dimension is not well visualized. Left Atria Left atrial chamber dimension is severely enlarged. Right Atria Right atrial chamber dimension is severely enlarged. Aortic Valve There is moderate to severe aortic valve stenosis based on a peak velocity of 307 cm/s, mean gradient of 25 mmHg, and aortic valve area of 1.0 cm2. By planimetry, Aortic valve area is 0.9 cm2. The aortic valve is trileaflet. There is severe aortic valve sclerosis. There is trace aortic valve regurgitation. Pulmonic Valve There is trace pulmonic regurgitation. Mitral Valve The mitral valve has moderately calcified annulus. There is no mitral valve stenosis. There is mild to moderate mitral valve regurgitation. Tricuspid Valve There is moderate tricuspid valve regurgitation. Moderate pulmonary hypertension, estimated pulmonary arterial systolic pressure is 50 mmHg. Pericardium/Pleural There is no pericardial effusion. Inferior Vena Cava Dilated inferior vena cava with
[2021-04-13] MEDS: IPRATROPIUM BR 0.02% INH SOLN 0.5 MG/2.5 ML VIAL INHALATION ×4 (01:33→19:45)
[2021-04-13 05:54] LABS: Anion Gap 5 mmol/L (8-16); Blood Urea Nitrogen 35 mg/dL (7-17); Calcium 9.2 mg/dL (8.4-10.2); Carbon Dioxide 33 mmol/L (22-30); Chloride 104 mmol/L (98-107); Estimated CRCL calculation 54 ml/min; Estimated Glomerular Filt Rate > 60; Glucose 139 mg/dL (65-105); Potassium 4.3 mmol/L (3.4-5.0); Sodium 142 mmol/L (137-145)
[2021-04-13] MEDS: COLCHICINE 0.6 MG TABLET PO ×2 (08:53→16:50)
[2021-04-13] MEDS: FUROSEMIDE INJ 40 MG/4 ML VIAL IV PUSH (08:53)
[2021-04-13] MEDS: DABIGATRAN ETEXILATE 75 MG CAPSULE PO ×2 (08:53→20:03)
[2021-04-13] MEDS: lisinopriL 20 MG TABLET PO (08:53)
[2021-04-13] MEDS: ASPIRIN 81 MG ENTERIC TABLET PO (08:53)
[2021-04-13] MEDS: carvediloL 12.5 MG TABLET PO ×2 (08:53→16:49)
[2021-04-13] MEDS: methylPREDNISolone SOD SUCC 125 MG VIAL 60 MG IV PUSH ×2 (08:53→14:48)
[2021-04-13] MEDS: allopurinoL 300 MG TABLET PO (08:53)
[2021-04-13 08:59] LABS: Hemoglobin A1C 6.1 % (<5.7)
--- NOTE | 2021-04-13 16:46 | PM.IMPN ---
Progress Note: A&P Assessment and Plan (1) Acute exacerbation of chronic obstructive pulmonary disease (COPD): Code(s): J44.1 - Chronic obstructive pulmonary disease with (acute) exacerbation Status: Acute Assessment and Plan: Pt continues to have wheezing and hypoxia with ambulation. She also gets SOB when she speaks for long periods of times. She says this has only been going on for a few weeks. The seems to be improving -Continue IV steroids and o2 with ambulation. Will decrease dose today -d-dimer negative, PE less likely -No signs of PNA, chest x-ray today looks okay -Continue Anoro, albuterol and atrovent -No pulmonology consulted needed at this time as she has an outpt follow up in about a week or so. -Pt has quit smoking about 30 days ago -Continue cpap -new echo showing moderate pulmonary hypertension (2) CHF (congestive heart failure): Qualifiers: Heart failure chronicity: acute on chronic Heart failure type: combined systolic and diastolic Qualified Code(s): I50.43 - Acute on chronic combined systolic (congestive) and diastolic (congestive) heart failure Code(s): I50.9 - Heart failure, unspecified Status: Acute Assessment and Plan: Appears pretty euvolemic but does have crackles -Continue with lasix, lisinopril and Coreg -EF on the last echo from 10/2020 shows an EF of 45-50% and this is actually improved on this echo -bnp less elevated than last stay but still elevated. No CP . (3) Obstructive sleep apnea: Code(s): G47.33 - Obstructive sleep apnea (adult) (pediatric) Status: Chronic Assessment and Plan: Continue cpap -Pt is doing well with this and has found a lot of relief with it (4) History of atrial fibrillation: Code(s): Z86.79 - Personal history of other diseases of the circulatory system Status: Acute Assessment and Plan: Rate controlled -patient states she takes Pradaxa at home and it must have not made her home medication list. This was restarted 04/12/21 (5) History of tobacco abuse: Code(s): Z87.891 - Personal history of nicotine dependence Status: Acute Assessment and Plan: Patient stated that she quit smoking 34 days ago. I have encouraged to continue with smoking cessation. (6) Gout: Code(s): M10.9 - Gout, unspecified Status: Chronic Assessment and Plan: Continue with colchicine (7) HTN (hypertension): Qualifiers: Hypertension type: essential hypertension Qualified Code(s): I10 - Essential (primary) hypertension Code(s): I10 - Essential (primary) hypertension Status: Chronic Assessment and Plan: Last bp 132/65 -Continue with Coreg and lisinopril Subjective Date/time seen: 04/13/21 16:46 Interval history: Pt is a 80 y/o female here for COPD exacerbation. Patient was seen today and states she is finally seeing some improvement. She is not able to talk in longer sentences without feeling distress. She still has dyspnea on exertion but feels better when wearing the oxygen. She continues to wear the CPAP which is really improving her sleep. She had a BM today. Pt denies nausea, vomiting, fevers, chills, constipation, diarrhea, chest pain, or abdominal pain. Exam Narrative: Exam Narrative: General: Well developed well nourished patient in NAD HEENT: normocephalic Neck: supple Neuro: Alert and oriented x 4 CV: irregularly irregular with controlled rate and slight murmur. Resp:decreased breath sounds with slight wheezing (improvement) Abd: Soft, non distended. No pain to palpation. Positive bowel sounds Extremities: No swelling, erythema, or pain to palpation. Objective Data Vital Signs Vital Signs: Vital Signs - 24 hr 04/12/21 18:00 04/12/21 19:43 04/12/21 20:00 Temperature 97.3 F L Pulse Rate 96 96 92 Respiratory Rate 20 20 Blood Pressure 143/81 H Pulse Oximetry 95 95 0
[2021-04-14] VITALS (16 sets, daily range): BP systolic 128–137; BP diastolic 70–87; PULSE 53–90; RESP 18–23; TEMP 36–36.4; O2SAT 86–98
[2021-04-14] MEDS: IPRATROPIUM BR 0.02% INH SOLN 0.5 MG/2.5 ML VIAL INHALATION ×3 (03:40→13:59)
[2021-04-14 05:39] LABS: Hematocrit 48.3 % (37.0-47.0); Hemoglobin 15.6 g/dL (12.0-15.0)
[2021-04-14] MEDS: UMECLIDINIUM/VILANTEROL 62.5-25 MCG ELLIPTA 1 PUFF INHALATION (07:27)
[2021-04-14] MEDS: lisinopriL 20 MG TABLET PO (09:01)
[2021-04-14] MEDS: carvediloL 12.5 MG TABLET PO (09:01)
[2021-04-14] MEDS: ASPIRIN 81 MG ENTERIC TABLET PO (09:02)
[2021-04-14] MEDS: DABIGATRAN ETEXILATE 75 MG CAPSULE PO (09:02)
[2021-04-14] MEDS: FUROSEMIDE INJ 40 MG/4 ML VIAL IV PUSH (09:02)
[2021-04-14] MEDS: methylPREDNISolone SOD SUCC 125 MG VIAL 60 MG IV PUSH (09:02)
[2021-04-14] MEDS: allopurinoL 300 MG TABLET PO (09:02)
[2021-04-14] MEDS: COLCHICINE 0.6 MG TABLET PO (09:02)
--- NOTE | 2021-04-14 12:54 | PM.DS ---
DS: Admitting Diagnosis Admitting Diagnosis Admitting Diagnosis: COPD exacerbation DS: Discharge Diagnosis Discharge Diagnosis (1) Acute exacerbation of chronic obstructive pulmonary disease (COPD): Code(s): J44.1 - Chronic obstructive pulmonary disease with (acute) exacerbation Status: Acute Assessment and Plan: Improved through her hospital stay. At admission she could barely talk in full sentences without becoming short of breath. The day of discharge she was able to have a full conversation without dyspnea. She still has some dyspnea on exertion but the oxygen has improved this and she qualified for oxygen at home -she received IV steroids while hospitalized and will be tapered outpatient -d-dimer negative, PE less likely -No signs of PNA, chest x-ray negative -Continue Anoro -patient has an appointment with Dr. Abreu pulmonology in the next month -Pt has quit smoking about 30 days ago -Continue cpap the home -new echo showing moderate pulmonary hypertension (2) CHF (congestive heart failure): Qualifiers: Heart failure chronicity: acute on chronic Heart failure type: combined systolic and diastolic Qualified Code(s): I50.43 - Acute on chronic combined systolic (congestive) and diastolic (congestive) heart failure Code(s): I50.9 - Heart failure, unspecified Status: Acute Assessment and Plan: Patient was euvolemic at discharge -Continue home medication -EF on the last echo from 10/2020 shows an EF of 45-50% and this is actually improved on this echo -bnp less elevated than last stay but still elevated. No CP . (3) Obstructive sleep apnea: Code(s): G47.33 - Obstructive sleep apnea (adult) (pediatric) Status: Chronic Assessment and Plan: Continue cpap -Pt is doing well with this and has found a lot of relief with it (4) History of atrial fibrillation: Code(s): Z86.79 - Personal history of other diseases of the circulatory system Status: Acute Assessment and Plan: Rate controlled -patient states she takes Pradaxa at home and it must have not made her home medication list. This was continued at discharge (5) History of tobacco abuse: Code(s): Z87.891 - Personal history of nicotine dependence Status: Acute Assessment and Plan: Patient stated that she quit smoking 35 days ago. I have encouraged to continue with smoking cessation. (6) Gout: Code(s): M10.9 - Gout, unspecified Status: Chronic Assessment and Plan: Continue with colchicine -no acute symptoms (7) HTN (hypertension): Qualifiers: Hypertension type: essential hypertension Qualified Code(s): I10 - Essential (primary) hypertension Code(s): I10 - Essential (primary) hypertension Status: Chronic Assessment and Plan: Last bp 128/70 -Continue with Coreg and lisinopril DS: Summary Hospital Course Hospital Course: Patient is an 80-year-old female who has a past medical history of systolic CHF with COPD and sleep apnea who presented emergency room for shortness of breath that is chronic but worsening over the last few days. Vitals in the ER were temperature 36.2? C, pulse 68, respiratory rate 19, blood pressure 128/87, pulse ox 95 on room air. CBC and BMP relatively normal. Glucose 205. Troponins negative. EKG showed rate controlled atrial fibrillation. D dimer negative. Chest x-ray showed chronic findings such as persistent right middle lobe collapse, cardiomegaly and small pleural effusions. Patient was admitted to the hospitalist service and started on IV steroids, oxygen and Lasix. The patient improved with this treatment. She underwent echocardiogram which actually showed improvement of her CHF with an EF of 60-65%. The patient received IV steroids for many days and was able to be transition to oral. The day of discharge she was able to hold his and her dyspnea on exerti
--- NOTE | 2021-04-14 14:25 | HOMEO2EVAL ---
Evaluation was performed at [facility] Home Oxygen Evaluation RC: Home Oxygen (O2) Evaluation Start: 04/14/21 11:33 Freq: ONCE Status: Active Protocol: RPE Activity Type Activity Date Activity User E-Sign Co-Sign Detail Recorded Client Recorded Date Recorded By Document 04/14/21 13:30 DJO [email or web address] 04/14/21 14:25 DJO Document 04/14/21 13:32 [email or web address] [email or web address] 04/14/21 14:25 DJO Document 04/14/21 13:34 [email or web address] [email or web address] 04/14/21 14:25 DJO Document 04/14/21 13:35 [email or web address] [email or web address] 04/14/21 14:25 DJO Document 04/14/21 13:45 [email or web address] [email or web address] 04/14/21 14:25 DJO 04/14/21 04/14/21 04/14/21 13:30 13:32 13:34 Home O2 Evaluation Test Phase Resting Exercise Exercise Oxygen Delivery Room Air Room Air Nasal Cannula Oxygen Flow Rate (L/min) 1 Pulse Oximetry (90-100 %) 93 86 L 87 L Home Oxygen Evaluation Comments Treatment Charges O2 Evaluation - Inpatient 04/14/21 04/14/21 13:35 13:45 Home O2 Evaluation Test Phase Exercise Resting Oxygen Delivery Nasal Cannula Room Air Oxygen Flow Rate (L/min) 2 Pulse Oximetry (90-100 %) 91 93 Home Oxygen Evaluation Comments PT REQUIRES 2 L WITH EXERTION Treatment Charges
--- NOTE | 2021-04-14 14:25 | PCRCNOTE ---
HOME O2 EVAL REPEATED. PT REQUIRES 2 L WITH EXERTION, [facility] IS DME, PT HAS CPAP WITH THEM ALREADY.
== END 2021-04-14 15:43 | disposition home or self-care (01) | DRG 190 ==
LOC: ANHED 16:01 → ANH2MED 19:19
PROVIDERS: Emergency Medicine; Nurse Practitioner; Physician Assistant; Admitting Provider Internal Medicine; Emergency Provider Emergency Medicine; PCP Internal Medicine; Visit Provider Internal Medicine
DX: J44.1 Chronic obstructive pulmonary disease with (acute) exacerbation (principal); I50.43 Acute on chronic combined systolic (congestive) and diastolic (congestive) heart failure; I48.20 Chronic atrial fibrillation, unspecified; I11.0 Hypertensive heart disease with heart failure; G47.33 Obstructive sleep apnea (adult) (pediatric); M1A.9XX0 Chronic gout, unspecified, without tophus (tophi); I35.0 Nonrheumatic aortic (valve) stenosis; Z87.891 Personal history of nicotine dependence; Z85.828 Personal history of other malignant neoplasm of skin; Z79.02 Long term (current) use of antithrombotics/antiplatelets
CPT/HCPCS: 36415; 71046; 80048; 80053; 83036; 83735; 83880; 84484; 85014; 85018; 85025; 85380; 93005; 93306; 93970; 93971; 94618; 94640; 96372; 96374; 96375; 96376; 99285; A9270; G0378; J1650; J1940; J2930

== ENCOUNTER 2021-05-12 18:36 | Emergency (ER) | payer MEDICARE, SELFPAY ==
--- NOTE | ~2021-05-12 | XR_ITS ---
EXAMINATION: XR chest 2V EXAM DATE: 05/12/2021 19:06 INDICATION: Shortness of breath, COPD, HTN, CHF. TECHNIQUE: Frontal and lateral projections of the chest obtained and reviewed. Comparison is made to prior examination from 04/13/2021. FINDINGS: The lungs are hyperinflated which can be seen with chronic obstructive pulmonary disease ( a clinical diagnosis of functional impairment), but is not diagnostic of it. The cardiac silhouette i s enlarged. No confluent consolidation, pneumothorax or pleural effusion suspected. Some hardware katlin dging healed left rib fractures. There is no significant interval change. IMPRESSION: Cardiomegaly and hyperinflation unchanged. Reviewed, dictated and finalized at location A.
[2021-05-12 18:38] VITALS: BP 166/77; PULSE 59; RESP 95; TEMP 36.3; O2SAT 97
--- NOTE | 2021-05-12 18:39 | ECG_ITS ---
Measurements Intervals [place] Rate: 114 P: NM: 0 QRS: 9 QRSD: 89 T: 16 QT: 297 QTc: 409 Interpretive Statements ATRIAL FIBRILLATION WITH RAPID VENTRICULAR RESPONSE VENTRICULAR COUPLET AND FREQUENT VENTRICULAR PREMATURE COMPLEXES INCOMPLETE RIGHT BUNDLE BRANCH BLOCK BORDERLINE T WAVE ABNORMALITY- INFERIOR LEADS BASELINE ARTIFACT- I, III, AVR, AVL, AVF, V1-V2 ABNORMAL ECG Electronically Signed On 05-12-2021 21:04:16 CDT by John Greenwood D.O.
[2021-05-12 18:57] LABS: Basophils Absolute Auto 0.1 K/mm3 (0.0-0.1); Basophils Percent Auto 0.7 % (0.2-1.2); Eosinophils Absolute Auto 0.1 K/mm3 (0-0.3); Hemoglobin 15.5 g/dL (12.0-15.0); Immature Granulocyte Absolute 0.33 K/mm3 (0.00-0.031); Immature Granulocyte Percent A 2.9 % (0-0.5); Lymphocytes Absolute Auto 1.06 K/mm3 (0.9-3.2); Lymphocytes Percent Auto 9.2 % (18.3-44.2); Mean Corpuscular HGB Conc 31.6 g/dl (32-36); Mean Corpuscular Hemoglobin 32.2 pg (26-34); Mean Corpuscular Volume 101.7 fl (80-100); Mean Platelet Volume 9.6 fl (7.4-10.4); Monocytes Absolute Auto 1.1 K/mm3 (0.1-0.6); Monocytes Percent Auto 9.9 % (2.6-8.5); Neutrophils Absolute Auto 8.8 K/mm3 (1.3-6.7); Neutrophils Percent Auto 76.3 % (45.5-73.1); Platelet Count Result 244 k/mm3 (150-375); Red Blood Count 4.82 M/mm3 (4.2-5.4); Red Cell Distribution Width 14.6 % (11.5-14.5); White Blood Count 11.5 K/mm3 (4.5-10.0)
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
[2021-05-12] MEDS: methylPREDNISolone SOD SUCC 125 MG VIAL 80 MG IV PUSH (19:11)
[2021-05-12 19:16] LABS: Anion Gap 5 mmol/L (8-16); Blood Urea Nitrogen 25 mg/dL (7-17); Calcium 9.3 mg/dL (8.4-10.2); Carbon Dioxide 32 mmol/L (22-30); Chloride 99 mmol/L (98-107); Estimated CRCL calculation 36 ml/min; Estimated Glomerular Filt Rate 53; Glucose 147 mg/dL (65-110); Potassium 4.5 mmol/L (3.4-5.0); Sodium 136 mmol/L (137-145)
[2021-05-12 19:27] LABS: Alveolar/Arterial O2 Gradient 80.2 mmHg; Carboxyhemoglobin 1.2 % THb (0-2.0); Fractional Inspired Oxygen 32 %; HCO3 ABG 29.2 mEq/l (22.0-26.0); Methemoglobin ABG 0.3 %THb (0-1.5); Oxygen Content ABG 21.1 %vol (16.0-22.0); Oxygen Saturation ABG 97.3 % (95.0-100.0); Oxyhemoglobin 95.9 % THb (90.0-100.0); PCO2 ABG 45.8 mmHg (35.0-45.0); PO2 ABG 94.4 mmHg (80.0-100.0); PO2 FiO2 Ratio Arterial Blood 2.95 %; Reduced Hemoglobin 2.6 %THb (0-5.0); Total Hemoglobin 15.6 g/dL (12.0-18.0); pH ABG 7.423 (7.350-7.450)
[2021-05-12 19:28] LABS: Device NASAL CANNULA; Modified Allen's Test Pass; Site Drawn LEFT RADIAL
[2021-05-12] MEDS: ALBUTEROL SULFATE NEB 2.5 MG/0.5 ML INH 5 MG INHALATION (19:33)
[2021-05-12 19:34] VITALS: PULSE 113; RESP 16
[2021-05-12] MEDS: IPRATROPIUM BR 0.02% INH SOLN 0.5 MG/2.5 ML VIAL INHALATION (19:34)
[2021-05-12 19:43] VITALS: PULSE 102; RESP 24
[2021-05-12 20:48] LABS: INR 1.4; Prothrombin Time 16.7 Seconds (11.1-14.7)
[2021-05-12 20:49] LABS: Partial Thromboplastin Time 49.3 SECONDS (22.3-36.8)
[2021-05-12 20:50] LABS: Alanine Aminotransferase 13 U/L (4-35); Albumin Level 3.5 g/dL (3.5-5.1); Alkaline Phosphatase 80 U/L (38-126); Aspartate Amino Transferase 20 U/L (14-36); Bilirubin,Total 0.6 mg/dL (0.2-1.3)
[2021-05-12 20:51] LABS: Lactic Acid Reflex 0.8 mmol/L (0.7-2.1)
[2021-05-12 20:59] LABS: NT Pro B Type Natriuretic Pept 4620 pg/mL (5-100)
[2021-05-12 21:20] LABS: Troponin I 0.016 ng/mL (0.000-0.034)
[2021-05-12 21:27] LABS: Add Urine Microscopic? YES; Appearance Urine Cloudy (Clear); Bacteria Urine 4+ /hpf; Bilirubin Urine Negative (Negative); Blood Urine 1+ (Negative); Color Urine Yellow (Yellow); Glucose Urine UA Negative (Negative); Ketones Urine Negative (Negative); Leukocyte Esterase Ur Trace LEU/UL (Negative); Mucus Urine Few /lpf; Nitrate Urine Positive (Negative); Protein Urine 1+ mg/dL (Negative); RBC Urine 0-2 /hpf (0-2); Specific Grav Ur 1.019 (1.001-1.035); Squamous Epithelial Cell Urine Moderate /hpf (Few); Urobilinogen Urine Negative mg/dL (<2.0)
[2021-05-12 21:56] VITALS: BP 123/70; PULSE 94; RESP 15; O2SAT 97
[2021-05-12 22:30] VITALS: BP 105/74; PULSE 110; RESP 31; O2SAT 100
[2021-05-12] MEDS: FUROSEMIDE INJ 40 MG/4 ML VIAL IV PUSH (22:33)
[2021-05-12 22:54] VITALS: O2SAT 97
--- NOTE | 2021-05-12 22:54 | PC.NURSE ---
Ambulated patient with 2lpm of oxygen. Patient lowest oxygen saturation was 88.
[2021-05-12 22:55] LABS: Troponin I 0.013 ng/mL (0.000-0.034)
--- NOTE | 2021-05-12 23:32 | PC.NURSE ---
Pt son Fransico called at [phone]. Son to come to sheepskin pickler mother in about 15 minutes.
[2021-05-13 00:12] VITALS: BP 112/65; PULSE 105; RESP 20; O2SAT 93
== END 2021-05-13 00:12 | disposition home or self-care (01) ==
PROVIDERS: Emergency Medicine; Emergency Medicine Emergency Medical Services; Emergency Provider Emergency Medicine; PCP Internal Medicine
DX: J44.9 Chronic obstructive pulmonary disease, unspecified (principal); I35.0 Nonrheumatic aortic (valve) stenosis; I50.9 Heart failure, unspecified; I48.91 Unspecified atrial fibrillation; I27.20 Pulmonary hypertension, unspecified; I11.0 Hypertensive heart disease with heart failure; Z85.828 Personal history of other malignant neoplasm of skin; M10.9 Gout, unspecified; G47.33 Obstructive sleep apnea (adult) (pediatric); Z99.81 Dependence on supplemental oxygen; Z87.891 Personal history of nicotine dependence; R00.8 Other abnormalities of heart beat; I45.10 Unspecified right bundle-branch block; R94.31 Abnormal electrocardiogram [ECG] [EKG]
CPT/HCPCS: 36415; 36600; 71046; 80048; 80076; 81001; 82375; 82805; 83050; 83605; 83735; 83880; 84484; 85025; 85610; 85730; 87040; 93005; 94640; 96374; 96375; 99284; J1940; J2930

== ENCOUNTER → 2021-09-29 01:39 | Outpatient (CLI) | payer MEDICARE, SELFPAY ==
[2021-09-29 19:33] LABS: SARS-CoV-2 RNA PCR Negative
== END ==
PROVIDERS: PCP Internal Medicine; Visit Provider Nurse Practitioner
DX: R68.89 Other general symptoms and signs (principal); Z20.822 Contact with and (suspected) exposure to COVID-19
CPT/HCPCS: C9803; U0003; U0005

== ENCOUNTER 2021-11-04 08:27 | Outpatient (CLI) | payer MEDICARE, SELFPAY ==
--- NOTE | ~2021-11-04 | XR_ITS ---
EXAMINATION: XR lumbar spine 2-3V EXAM DATE: 11/04/2021 08:47 INDICATION: M54.9 - Severe Rt Side Low Back Pain. NKI . TECHNIQUE: Lumber spine frontal, lateral, bilateral oblique projections. Coned down frontal and lat eral L5-S1 lumbar projections for interpretation. Comparison is made to prior examination from 01/29/20 14. FINDINGS: There is moderate to severe disc disease L-1-2, L2-3, moderate at L5-S1. 2 to 3 mm retrolis thesis L1 on L2 and L2 on L3. Moderate aortic arteriosclerosis. Mild to moderate lumbar dextroscolios is. Sacrum, sacroiliac joints, sacral arcuate lines are intact. Moderate lumbar facet arthropathy. No acute fracture line identified. IMPRESSION: 1. Moderate to severe upper lumbar disc disease 2. Moderate arthropathy. 3. Mild to moderate dextroscoliosis. Reviewed, dictated and finalized at location A. ETING TRAFFIC COORDINATOR
== END 2021-11-04 08:28 | disposition home or self-care (01) ==
LOC: ANHIMG 08:32
PROVIDERS: PCP Internal Medicine; Visit Provider Internal Medicine
DX: M51.36 Other intervertebral disc degeneration, lumbar region (principal)
CPT/HCPCS: 72100

== ENCOUNTER 2021-11-26 05:28 | Emergency (ER) | payer MEDICARE, SELFPAY ==
--- NOTE | ~2021-11-26 | XR_ITS ---
XR shoulder RT min 2V 11/26/2021 05:56 Indication: Right shoulder pain. Limited range of motion. Procedure: 4 views right shoulder Comparison: No prior studies for comparison. Findings: Mild degenerative change of the glenohumeral joint. No fracture, subluxation or dislocation . Surrounding osseous structures and soft tissues are unremarkable. No foreign bodies. Impression: 1: No acute fracture. Reviewed, dictated and finalized at location A. ER RESOURCE SPECIALIST Impression: 1: No acute fracture.
[2021-11-26 05:24] VITALS: BP 131/102; PULSE 56; RESP 18; TEMP 36.4; O2SAT 96
[2021-11-26 05:39] VITALS: O2SAT 100
[2021-11-26 06:00] VITALS: PULSE 108
[2021-11-26] MEDS: carvediloL 12.5 MG TABLET PO (06:00)
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
[2021-11-26] MEDS: ACETAMINOPHEN 500 MG TABLET 1000 MG PO (06:23)
[2021-11-26 06:48] VITALS: BP 123/80; PULSE 95; RESP 16; O2SAT 97
[2021-11-26 07:14] VITALS: BP 123/80; PULSE 90; RESP 18; O2SAT 95
== END 2021-11-26 07:16 | disposition home or self-care (01) ==
PROVIDERS: Emergency Provider Emergency Medicine; PCP Internal Medicine
DX: S46.911A Strain of unspecified muscle, fascia and tendon at shoulder and upper arm level, right arm, initial encounter (principal); I48.91 Unspecified atrial fibrillation; J44.9 Chronic obstructive pulmonary disease, unspecified; I11.0 Hypertensive heart disease with heart failure; I50.9 Heart failure, unspecified; I35.0 Nonrheumatic aortic (valve) stenosis; G47.33 Obstructive sleep apnea (adult) (pediatric); I27.20 Pulmonary hypertension, unspecified; Z85.828 Personal history of other malignant neoplasm of skin; Z87.891 Personal history of nicotine dependence; Z79.82 Long term (current) use of aspirin; Z79.02 Long term (current) use of antithrombotics/antiplatelets; X58.XXXA Exposure to other specified factors, initial encounter
CPT/HCPCS: 73030; 99283; A4565; A9270

== ENCOUNTER 2022-01-05 02:51 | Day surgery (SDC) | payer MEDICARE, SELFPAY ==
[2021-12-28 15:36] VITALS: BMI 30.4
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
[2022-01-05] MEDS: LACTATED RINGERS 1,000 ML 150 ML IV CONT (09:50)
[2022-01-05 09:52] VITALS: BP 145/68; PULSE 54; RESP 20; TEMP 36.3; O2SAT 97; BMI 29.9
--- NOTE | 2022-01-05 09:54 | SUR.PREOP ---
Pt SOB after dressing. Dr. Cornejo and KALYAN Carnes made aware. Pt took home albuterol inhaler with ok from and KALYAN.
[2022-01-05 10:55] VITALS: BP 111/66; PULSE 94; RESP 20; O2SAT 95
[2022-01-05 11:05] VITALS: BP 118/64; PULSE 97; RESP 21; O2SAT 98
[2022-01-05 11:15] VITALS: BP 135/67; PULSE 85; RESP 21; O2SAT 96
== END 2022-01-05 11:45 | disposition home or self-care (01) ==
PROVIDERS: PCP Internal Medicine; Visit Provider Internal Medicine Gastroenterology
PROC: 0DJD8ZZ Inspection of Lower Intestinal Tract, Via Natural or Artificial Opening Endoscopic (ICD-10-PCS; CPT 45378; principal; 2022-01-05 10:30)
DX: K52.9 Noninfective gastroenteritis and colitis, unspecified (principal); K57.30 Diverticulosis of large intestine without perforation or abscess without bleeding; K63.89 Other specified diseases of intestine; I11.0 Hypertensive heart disease with heart failure; I50.9 Heart failure, unspecified; G47.33 Obstructive sleep apnea (adult) (pediatric); J44.9 Chronic obstructive pulmonary disease, unspecified; M10.9 Gout, unspecified; I35.0 Nonrheumatic aortic (valve) stenosis; Z72.0 Tobacco use; E66.9 Obesity, unspecified; Z68.29 Body mass index [BMI] 29.0-29.9, adult; Z79.51 Long term (current) use of inhaled steroids
CPT/HCPCS: 45380; 88305; J2704; J7120

== ENCOUNTER → 2022-01-21 10:45 | Outpatient (CLI) | payer MEDICARE, SELFPAY ==
--- NOTE | ~2022-01-21 | MR_ITS ---
EXAMINATION: MR lumbar spine wo con DATE: 01/21/2022 12:11 INDICATION: Lumbar radiculopathy. Low back pain. TECHNIQUE: Magnetic resonance imaging (MRI) of the lumbar spine was performed without intravenous con trast. Sequences included sagittal T2-weighted FSE, sagittal T2-weighted FS FSE, sagittal T1-weighted FSE, and axial T2-weighted FSE. COMPARISON: Lumbar spine radiographs 11/04/2021 FINDINGS: There is 12 degrees dextroscoliosis of lumbar spine. There is 3 mm retrolisthesis of L1 on L2 and 4 mm retrolisthesis of L2 on L3. There are Schmorl's nodes at multiple levels. There is severe ly decreased disc height at L1-L2 and L2-L3, moderately decreased disc height at L3-L4, and severely decreased disc height at L4-L5 and L5-S1 with endplate remodeling. The distal spinal cord signal inte nsity is normal. The conus medullaris is at T12-L1. The following disc levels are specifically discus sed: L1-L2: The disc is bulging and has an annular fissure. There is moderate bilateral facet joint osteoa rthritis. There is mild bilateral neural foraminal stenosis. There is mild central canal stenosis. L2-L3: The disc is bulging and has an annular fissure. There is mild bilateral facet joint osteoarthr itis. There is mild right and moderate left neural foraminal stenosis. There is mild central canal st enosis. L3-L4: The disc is bulging with superimposed right central and subarticular zone extrusion with 12 mm inferior extension and displacement of right L4 nerve root. There is mild right and moderate left fa cet joint osteoarthritis. There is moderate right and mild left neural foraminal stenosis. There is m ild central canal stenosis. There is moderate stenosis of right lateral recess. L4-L5: The disc is bulging and has an annular fissure. There is mild bilateral facet joint osteoarthr itis. There is moderate right and mild left neural foraminal stenosis. There is mild central canal st enosis. There is moderate stenosis of right lateral recess. L5-S1: The disc is bulging and has an annular fissure. There is severe right and moderate left facet joint osteoarthritis. There is mild bilateral neural foraminal stenosis. There is mild central canal stenosis. IMPRESSION: 1. Severe lumbar spondylosis. 2. Lumbar dextroscoliosis. Reviewed, dictated and finalized at location E.
== END ==
PROVIDERS: PCP Internal Medicine; Visit Provider Nurse Practitioner Adult Health
DX: M47.26 Other spondylosis with radiculopathy, lumbar region (principal)
CPT/HCPCS: 72148

== ENCOUNTER 2022-05-01 13:35 | Outpatient (CLI) | payer MEDICARE, SELFPAY ==
--- NOTE | 2022-05-01 14:03 | ECHO_ITS ---
Patient Info Name: Giselle Aranda Age: 81 years : 1940 Gender: Female Ht: 66 in Wt: 190 lbs BSA: 2.03 m2 HR: 70 bpm BP: 129 / 75 mmHg Heart Rhythm: Atrial Fibrillation Technical Quality: Fair Exam Date: 05/01/2022 2:16 PM Exam Location: [facility] Patient Status: Outpatient Admit Date: 05/01/2022 Staff Ordering Physician: John Greenwood DO Certified Tumor Registrar: Yadi Adair RDCS Attending Provider: John Greenwood DO Referring Physician: Timo DO; Exam Type: CA echo doppler color flow Study Info Indications I35.0 - Nonrheumatic aortic (valve) stenosis Complete two-dimensional, color flow and Doppler transthoracic echocardiogram is performed. Summary 1. Complete two-dimensional, color flow and Doppler transthoracic echocardiogram is performed. 2. Left ventricular chamber dimension is normal. 3. Left ventricular systolic function is normal, estimated at 60-65%. 4. There is mildly increased left ventricular wall thickness. 5. The left ventricular diastolic function is abnormal. 6. E/e' 15 is elevated. 7. Atrial fibrillation. 8. Left atrial chamber dimension is severely enlarged. 9. Right atrial chamber dimension is severely enlarged. 10. The aortic valve is not well visualized. Cannot determine number of aortic valve leaflets. 11. There is moderate aortic valve stenosis based on a peak velocity of 315 cm/s, mean gradient of 18 mmHg, and aortic valve area of 1.2 cm2. Consider EMANI for further evaluation if clinically indicated. 12. There is severe aortic valve sclerosis. 13. There is trace aortic valve regurgitation. 14. The mitral valve has moderately calcified annulus. 15. There is mild mitral valve regurgitation. 16. There is trace tricuspid valve regurgitation. 17. Moderate pulmonary hypertension, estimated pulmonary arterial systolic pressure is 52 mmHg. 18. There is trace pulmonic regurgitation. 19. Dilated inferior vena cava with <50% collapse upon inspiration consistent with significantly elevated right atrial pressure, 15 mmHg. Left Ventricle E/e' 15 is elevated. Atrial fibrillation. Left ventricular chamber dimension is normal. Left ventricular systolic function is normal, estimated at 60-65%. There is mildly increased left ventricular wall thickness. The left ventricular diastolic function is abnormal. Right Ventricle Right ventricular chamber dimension is not well visualized. Left Atria Left atrial chamber dimension is severely enlarged. Right Atria Right atrial chamber dimension is severely enlarged. Aortic Valve The aortic valve is not well visualized. Cannot determine number of aortic valve leaflets. There is moderate aortic valve stenosis based on a peak velocity of 315 cm/s, mean gradient of 18 mmHg, and aortic valve area of 1.2 cm2. Consider EMANI for further evaluation if clinically indicated. There is severe aortic valve sclerosis. There is trace aortic valve regurgitation. Pulmonic Valve There is trace pulmonic regurgitation. Mitral Valve The mitral valve has moderately calcified annulus. There is no mitral valve stenosis. There is mild mitral valve regurgitation. Tricuspid Valve There is trace tricuspid valve regurgitation. Moderate pulmonary hypertension, estimated pulmonary arterial systolic pressure is 52 mmHg. Pericardium/Pleural There is no pericardial effusion. Inferior Vena Cava Dilated inferior vena cava with <50% collapse upon inspiration consistent with significantly elevated right atrial pressur
== END 2022-05-01 13:36 | disposition home or self-care (01) ==
PROVIDERS: PCP Internal Medicine; Visit Provider Internal Medicine Cardiovascular Disease
DX: I08.3 Combined rheumatic disorders of mitral, aortic and tricuspid valves (principal)
CPT/HCPCS: 93306

== ENCOUNTER 2022-07-19 08:04 | Outpatient (CLI) | payer MEDICARE, SELFPAY ==
[2022-07-19 08:45] VITALS: PULSE 63; O2SAT 94
[2022-07-19 09:00] VITALS: PULSE 75; O2SAT 94
[2022-07-19 09:10] VITALS: PULSE 81; O2SAT 94
--- NOTE | 2022-07-19 09:11 | HOMEO2EVAL ---
Evaluation was performed at [facility] Home Oxygen Evaluation RC: Home Oxygen (O2) Evaluation Start: 07/19/22 09:07 Freq: Status: Active Protocol: RPE Activity Type Activity Date Activity User E-sign Co-sign Detail Recorded Client Recorded Date Recorded By Document 07/19/22 08:45 [facility] [email or web address] 07/19/22 09:11 [facility] Document 07/19/22 09:00 [facility] [email or web address] 07/19/22 09:11 [facility] Document 07/19/22 09:10 [facility] [email or web address] 07/19/22 09:11 [facility] 07/19/22 07/19/22 07/19/22 08:45 09:00 09:10 Home O2 Evaluation Test Phase Resting Exercise Resting Oxygen Delivery Room Air Room Air Room Air Pulse Oximetry (90-100 %) 94 94 94 Pulse Rate (60-100 beats/min) 63 75 81 Activity Tolerance Good Good Ambulation Distance (feet) 200 Ambulation Distance (meters) 60.95 Treatment Charges O2 Evaluation - Outpatient
== END 2022-07-19 08:05 | disposition home or self-care (01) ==
LOC: ANHPFT 08:06
PROVIDERS: PCP Internal Medicine; Visit Provider Internal Medicine Critical Care Medicine
DX: J43.9 Emphysema, unspecified (principal); Z99.81 Dependence on supplemental oxygen
CPT/HCPCS: 94618

== ENCOUNTER 2022-07-27 13:00 | Outpatient (NON) | payer MEDICARE, SELFPAY | END 2022-07-27 13:01 | disposition home or self-care (01) | PROVIDERS: PCP Internal Medicine; Visit Provider Nurse Practitioner | DX: C44.629 Squamous cell carcinoma of skin of left upper limb, including shoulder (principal) | CPT/HCPCS: 88305 ==

== ENCOUNTER 2022-08-28 15:28 | Outpatient (NON) | payer MEDICARE, SELFPAY | END 2022-08-28 15:29 | disposition home or self-care (01) | LOC: ANHLAB 15:29 | PROVIDERS: PCP Internal Medicine; Visit Provider Nurse Practitioner | DX: C44.629 Squamous cell carcinoma of skin of left upper limb, including shoulder (principal) | CPT/HCPCS: 88305; 88331 ==

== ENCOUNTER 2022-09-19 06:44 | Inpatient (IN) | payer MEDICARE, SELFPAY ==
[2022-09-19] VITALS (61 sets, daily range): BP systolic 98–166; BP diastolic 62–110; PULSE 34–129; RESP 17–38; TEMP 36.2–36.7; O2SAT 91–100; BMI 29.7
--- NOTE | ~2022-09-19 | US_ITS ---
EXAMINATION:US venous doppler LE BI INDICATION:Shortness of breath TECHNIQUE: Multiple grayscale, color flow and Doppler images of the bilateral lower extremity deep ve nous systems were obtained and reviewed. COMPARISON:04/11/2021 FINDINGS: The common femoral, superficial femoral and popliteal veins demonstrate normal respiratory variation, augmentation and compressibility. Color flow is also seen within the posterior tibial, pe roneal, greater saphenous and profunda veins. IMPRESSION: 1: No lower extremity deep venous thrombosis. Reviewed, dictated and finalized at location A. HOUSE SUPERVISOR 3RD SHIFT
--- NOTE | ~2022-09-19 | XR_ITS ---
XR chest 1V portable 09/24/2022 06:40 Indication: CHF Procedure: AP portable chest Comparison: Comparison to multiple prior studies sequentially, with oldest reviewed study dated 04/13. Findings: Cardiomegaly. There is developing right basilar airspace disease, consistent with pneumonia . No significant effusion, edema or pneumothorax. There are side plate and screws transfixing multipl e left ribs. Impression: 1: Developing right basilar airspace disease, compatible with pneumonia. Reviewed, dictated and finalized at location A. ST SCIENCE PROFESSOR Impression: 1: Developing right basilar airspace disease, compatible with pneumonia.
--- NOTE | ~2022-09-19 | XR_ITS ---
EXAMINATION: XR chest 1V portable DATE: 09/19/2022 07:59 INDICATION: Shortness of breath. TECHNIQUE: A single frontal view of the chest was obtained on 2 radiographs. COMPARISON: Chest 2 views 05/12/2021, chest CT 11/23/2020 FINDINGS: There is mild atelectasis at left lung base. No pleural effusion or pneumothorax. Cardiomeg melodie is noted. There is internal fixation with 3 left-sided ribs. IMPRESSION: 1. Mild atelectasis at left lung base. 2. Cardiomegaly. Reviewed, dictated and finalized at location A. SERVICE DELIVERY MANAGER
--- NOTE | ~2022-09-19 | XR_ITS ---
EXAMINATION: XR chest 1V portable DATE: 09/22/2022 11:57 INDICATION: Congestive heart failure. Pneumonia. TECHNIQUE: A single frontal view of the chest was obtained. COMPARISON: Chest single view 09/19/2022 FINDINGS: There are interstitial opacities in the lower lung zones. No pleural effusion or pneumothor ax. Cardiomegaly is noted. There is internal fixation of 3 left-sided ribs. IMPRESSION: 1. Interstitial opacities in the lower lung zones, consistent with mild atelectasis versus mild pulmo nary edema. 2. Cardiomegaly. Reviewed, dictated and finalized at location A. BLOWING MACHINE OPERATOR IMPRESSION: 1. Interstitial opacities in the lower lung zones, consistent with mild atelect asis versus mild pulmonary edema. 2. Cardiomegaly.
--- NOTE | ~2022-09-19 | CT_ITS ---
EXAMINATION:CT diagnostic chest wo con DATE: 09/20/2022 16:33 INDICATION: Shortness of breath. TECHNIQUE: Computed tomography (CT) of the chest was performed without intravenous contrast. Automate d exposure control and iterative reconstruction technique were employed. The dose-length product (DLP ) was 289.33 mGy-cm. COMPARISON: Chest CT 11/23/2020 FINDINGS: There is mild scarring at the lung apices. There is mild emphysema. There is mild atelectas is bilaterally. There are tree-in-bud opacities and centrilobular nodules in basilar left lower lobe, consistent with pneumonia. No pleural effusion. Cardiomegaly is noted. There are coronary artery hiral cifications. There are calcifications of aortic valve. No pericardial effusion. There are gallstones in the gallbladder, which is normal in size. There are multiple old healed left rib fractures. There is internal fixation of 3 left-sided ribs. There is severe cervical, thoracic, and lumbar spondylosis . There is a chronic compression fracture of L2. IMPRESSION: 1. Mild pneumonia in basilar left lower lobe. 2. Mild emphysema. 3. Cardiomegaly. Reviewed, dictated and finalized at location A. STER OR DAMAGE CONTROL SPECIALIST
--- NOTE | 2022-09-19 07:03 | ECG_ITS ---
Measurements Intervals [place] Rate: 114 P: IN: 0 QRS: 17 QRSD: 93 T: 31 QT: 293 QTc: 403 Interpretive Statements ATRIAL FIBRILLATION WITH RAPID VENTRICULAR RESPONSE INCOMPLETE RIGHT BUNDLE BRANCH BLOCK DELAYED PRECORDIAL R/S TRANSITION BASELINE ARTIFACT- I, II, III, AVR, AVL, AVF, V1-V4 ABNORMAL ECG COMPARED TO ECG 05/12/2021 18:47:48 NO SIGNIFICANT CHANGES Electronically Signed On 09-19-2022 9:20:56 LPN INSTRUCTOR by John Greenwood D.O.
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
[2022-09-19] MEDS: IPRATROPIUM BR 0.02% INH SOLN 0.5 MG/2.5 ML VIAL INHALATION (07:28)
[2022-09-19] MEDS: ALBUTEROL SULFATE NEB 2.5 MG/3 ML INH 5 MG INHALATION ×3 (07:28→21:00)
[2022-09-19 07:39] LABS: Alveolar/Arterial O2 Gradient 137.6 mmHg; Base Excess ABG 0.1 mEq/l (+/-2.0); Fractional Inspired Oxygen 45 %; HCO3 ABG 25.1 mEq/l (22.0-26.0); Methemoglobin ABG 0.3 %THb (0-1.5); Oxygen Content ABG 21.8 %vol (16.0-22.0); Oxygen Saturation ABG 98.7 % (95.0-100.0); Oxyhemoglobin 96.9 % THb (90.0-100.0); PCO2 ABG 42.2 mmHg (35.0-45.0); PO2 ABG 135.3 mmHg (80.0-100.0); PO2 FiO2 Ratio Arterial Blood 3.01 %; Reduced Hemoglobin 1.8 %THb (0-5.0); Total Hemoglobin 15.9 g/dL (12.0-18.0); pH ABG 7.393 (7.350-7.450)
[2022-09-19 07:41] LABS: Device NON-INVASIVE VENT; Modified Allen's Test Pass; Non-Invasive Inspiratory Pressure 10 CMH2O; Non-Invasive Vent Rate 20 /MIN; Site Drawn LEFT RADIAL
[2022-09-19 07:42] LABS: Non-Invasive Expiratory Pressure 5 CMH2O
[2022-09-19 08:01] LABS: Basophils Absolute Auto 0.1 K/mm3 (0.0-0.1); Basophils Percent Auto 0.8 % (0.2-1.2); Eosinophils Absolute Auto 0.1 K/mm3 (0-0.3); Eosinophils Percent Auto 1.3 % (0-4.4); Hematocrit 47.9 % (37.0-47.0); Hemoglobin 15.3 g/dL (12.0-15.0); Immature Granulocyte Absolute 0.03 K/mm3 (0.00-0.031); Immature Granulocyte Percent A 0.4 % (0-0.5); Lymphocytes Absolute Auto 1.02 K/mm3 (0.9-3.2); Lymphocytes Percent Auto 12.3 % (18.3-44.2); Mean Corpuscular HGB Conc 31.9 g/dl (32-36); Mean Corpuscular Hemoglobin 31.9 pg (26-34); Mean Platelet Volume 10.2 fl (7.4-10.4); Monocytes Absolute Auto 0.6 K/mm3 (0.1-0.6); Monocytes Percent Auto 7.7 % (2.6-8.5); Neutrophils Absolute Auto 6.4 K/mm3 (1.3-6.7); Neutrophils Percent Auto 77.5 % (45.5-73.1); Platelet Count Result 211 k/mm3 (150-375); Red Blood Count 4.79 M/mm3 (4.2-5.4); Red Cell Distribution Width 14.4 % (11.5-14.5); White Blood Count 8.3 K/mm3 (4.5-10.0)
[2022-09-19 08:14] LABS: Alanine Aminotransferase 13 U/L (6-35); Albumin Level 4.1 g/dL (3.5-5.1); Alkaline Phosphatase 89 U/L (38-126); Anion Gap 11 mmol/L (8-16); Aspartate Amino Transferase 21 U/L (14-36); Bilirubin,Total 0.5 mg/dL (0.2-1.3); Blood Urea Nitrogen 16 mg/dL (7-17); Calcium 8.9 mg/dL (8.4-10.2); Carbon Dioxide 24 mmol/L (22-30); Chloride 105 mmol/L (98-107); Estimated CRCL calculation 51 ml/min; Estimated Glomerular Filt Rate > 60; Glucose 110 mg/dL (65-110); Sodium 140 mmol/L (137-145)
[2022-09-19 08:21] LABS: NT Pro B Type Natriuretic Pept 1840 pg/mL (5-100)
[2022-09-19 08:36] LABS: Influenza A QL RT-PCR Negative (Negative); Influenza B QL RT-PCR Negative (Negative); SARS-CoV-2 RNA PCR Negative
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
--- NOTE | 2022-09-19 17:55 | ADMGEN ---
This patient, Giselle Aranda, was admitted to IMU Room 214-01. Patient/family oriented to hospital policies and general routines including ID bracelet, bed and alarms, visiting hours, pain management, procedures, bathroom and other care routines, personal items, smoking policy, room service/diet, and visiting hours. Information on how to activate the Rapid Response Team has been discussed. Patient/Family are encouraged to report perceived risks to care and to ask questions if they do not understand what they are told or what they should do.
[2022-09-20] VITALS (30 sets, daily range): BP systolic 101–141; BP diastolic 62–109; PULSE 82–109; RESP 17–34; TEMP 36.3–37.2; O2SAT 92–100
[2022-09-20] MEDS: methylPREDNISolone SOD SUCC 125 MG VIAL 60 MG IV PUSH ×5 (01:35→23:28)
[2022-09-20] MEDS: AZITHROMYCIN 250 MG TABLET 500 MG PO (01:36)
[2022-09-20] MEDS: DABIGATRAN ETEXILATE 75 MG CAPSULE PO ×3 (01:36→20:56)
[2022-09-20] MEDS: carvediloL 12.5 MG TABLET PO ×3 (01:36→20:55)
[2022-09-20 05:03] LABS: Hematocrit 48.9 % (37.0-47.0); Hemoglobin 15.6 g/dL (12.0-15.0); Mean Corpuscular HGB Conc 31.9 g/dl (32-36); Mean Corpuscular Hemoglobin 32.9 pg (26-34); Mean Corpuscular Volume 103.2 fl (80-100); Mean Platelet Volume 10.1 fl (7.4-10.4); Platelet Count Result 197 k/mm3 (150-375); Red Blood Count 4.74 M/mm3 (4.2-5.4); Red Cell Distribution Width 14.4 % (11.5-14.5)
[2022-09-20 05:11] LABS: Anion Gap 5 mmol/L (8-16); Blood Urea Nitrogen 24 mg/dL (7-17); Calcium 9.1 mg/dL (8.4-10.2); Carbon Dioxide 26 mmol/L (22-30); Chloride 105 mmol/L (98-107); Estimated CRCL calculation 51 ml/min; Estimated Glomerular Filt Rate > 60; Glucose 160 mg/dL (65-110); Potassium 4.9 mmol/L (3.4-5.0); Sodium 136 mmol/L (137-145)
[2022-09-20] MEDS: FUROSEMIDE 20 MG TABLET PO (09:45)
[2022-09-20] MEDS: lisinopriL 20 MG TABLET PO (09:45)
[2022-09-20] MEDS: sulfaSALAzine 500 MG TABLET 1000 MG PO ×3 (09:45→17:23)
--- NOTE | 2022-09-20 11:00 | PM.IMPN ---
Progress Note: A&P Assessment and Plan (1) Acute exacerbation of chronic obstructive pulmonary disease: Code(s): J44.1 - Chronic obstructive pulmonary disease with (acute) exacerbation Status: Acute Assessment and Plan: Continue steroids, nebulizers, levaquin Consult pulmonology (2) Acute and chronic respiratory failure with hypoxia: Code(s): J96.21 - Acute and chronic respiratory failure with hypoxia Status: Acute Assessment and Plan: Likely secondary to COPD exacerbation Patient does oxygen is but refuses to do so was on BIPAP in ER, then weaned to nc, now back on BIPAP overnight, cont to wean as tolerated (3) Obstructive sleep apnea on CPAP: Code(s): G47.33 - Obstructive sleep apnea (adult) (pediatric); Z99.89 - Dependence on other enabling machines and devices Status: Acute Assessment and Plan: CPAP while here (4) Moderate to severe aortic stenosis: Code(s): I35.0 - Nonrheumatic aortic (valve) stenosis Status: Acute Assessment and Plan: Stable, monitor (5) Atrial fibrillation: Code(s): I48.91 - Unspecified atrial fibrillation Status: Acute Assessment and Plan: Monitor telemetry, rate controlled (6) Chronic anticoagulation: Code(s): Z79.01 - [facility] (current) use of anticoagulants Status: Acute Assessment and Plan: Continue pradaxa (7) Hypertension: Code(s): I10 - Essential (primary) hypertension Status: Acute Assessment and Plan: Stable monitor, continue home meds Plan DVT prophylaxis with pradaxa GI prophylaxis with PPI Code status full code Subjective Date/time seen: 09/20/22 11:00 Interval history: patient appears to be uncomfortable and in respiratory distress while trying to eat off BIPAP, currently being placed back on BIPAP. Review of Systems Review of Systems: ROS unobtainable: Yes unobtainable due to medical condition Exam Narrative: General: Acute respiratory distress, mentation appears to be alert and oriented per baseline HEENT: Atraumatic, normocephalic, mucous membranes moist CV: Regular rate and rhythm, S1, S2 Lungs: Coarse breath sounds throughout, diminished Abdomen: Soft, nontender, nondistended Extremities: Normal to inspection Skin: No rashes noted, no lesions or wounds seen Objective Data Vital Signs Vital Signs: Vital Signs - 24 hr 09/19/22 11:01 09/19/22 11:15 09/19/22 11:16 Temperature Pulse Rate 101 H 99 100 Respiratory Rate 21 H 20 21 H Blood Pressure 104/81 108/62 Pulse Oximetry 97 97 97 Oxygen Delivery Fraction of Inspired Oxygen 09/19/22 13:01 09/19/22 13:02 09/19/22 13:03 Temperature Pulse Rate 104 H 96 101 H Respiratory Rate 20 21 H 29 H Blood Pressure Pulse Oximetry 96 98 Oxygen Delivery BiPAP BiPAP Fraction of Inspired Oxygen 35 09/19/22 11:17 09/19/22 11:30 09/19/22 11:31 Temperature Pulse Rate 102 H 99 99 Respiratory Rate 25 H 25 H 30 H Blood Pressure 113/89 Pulse Oximetry 96 96 96 Oxygen Delivery Fraction of Inspired Oxygen 09/19/22 11:45 09/19/22 11:46 09/19/22 12:05 Temperature Pulse Rate 100 101 H 104 H Respiratory Rate 19 23 H 23 H Blood Pressure 116/79 Pulse Oximetry 97 98 Oxygen Delivery Fraction of Inspired Oxygen 09/19/22 12:21 09/19/22 12:31 09/19/22 12:32 Temperature Pulse Rate 100 97 90 Respiratory Rate 22 H 24 H 20 Blood Pressure 124/66 Pulse Oximetry 97 97 96 Oxygen Delivery Fraction of Inspired Oxygen 09/19/22 13:09 09/19/22 14:54 09/19/22 15:56 Temperature Pulse Rate 103 H 114 H 109 H Respiratory Rate 21 H 20 32 H Blood Pressure Pulse Oximetry 97 97 97 Oxygen Delivery Fraction of Inspired Oxygen 09/19/22 16:00 09/19/22 16:33 09/19/22 17:58 Temperature 97.2 F L Pulse Rate 101 H 106 H 104 H Respiratory Rate 17 26 H 26 H Blood Pressure 121/69 146/85 H Pulse Oximetry 96 96 91 O
[2022-09-20] MEDS: PANTOPRAZOLE SODIUM IV 40 MG VIAL IV PUSH (12:03)
[2022-09-20] MEDS: allopurinoL 300 MG TABLET PO (12:03)
--- NOTE | 2022-09-20 12:29 | P.CDI_ITS ---
CDI Query Clarified Diagnosis Clarified Diagnosis: Patient with documented history of CHF. Patient on PO Lasix. Elevated BNP on 09/19/22. Please specify type and acuity of heart failure if known. * Acute * Chronic * Acute on Chronic * Unknown * Systolic * Diastolic * Combined Systolic and Diastolic * Unknown <Kimmy Reeves RN - Last Filed: 09/20/22 12:32> Provider Comments Chronic diastolic heart failure <Liz Wilkinson DO - Last Filed: 09/27/22 19:16>
--- NOTE | 2022-09-20 12:29 | WPDCDIQUERY2 ---
CDI Query Clarified Diagnosis Clarified Diagnosis: Patient with documented history of CHF. Patient on PO Lasix. Elevated BNP on 09/19/22. Please specify type and acuity of heart failure if known. Acute Chronic Acute on Chronic Unknown Systolic Diastolic Combined Systolic and Diastolic Unknown <Kimmy Reeves RN - Last Filed: 09/20/22 12:32> Provider Comments Chronic diastolic heart failure <Liz Wilkinson DO - Last Filed: 09/27/22 19:16>
--- NOTE | 2022-09-20 14:38 | PM.CNPUL ---
Assessment and Plan Assessment and plan (1) Acute and chronic respiratory failure with hypoxia: Code(s): J96.21 - Acute and chronic respiratory failure with hypoxia Status: Acute (2) Acute exacerbation of chronic obstructive pulmonary disease: Code(s): J44.1 - Chronic obstructive pulmonary disease with (acute) exacerbation Status: Acute Assessment and Plan: this 82-year-old female with a history of a moderate COPD obstructive sleep apnea presented with several day history of cough and shortness of breath. Physical exam showed distant breath sounds with no wheezing. patient does better on BiPAP support although she had no hypercapnia on admission ABGs. She has been treated with antibiotics IV steroids and short-acting bronchodilators. She tested positive for influenza and COVID-19. Plan. The patient's clinical presentation is consistent with possible COPD exacerbation. Will test her for RSV. Will continue with current management consisting of levofloxacin IV, nebulized short-acting bronchodilators p.r.n., IV steroids, BIPAP support as ordered. Will proceed with a chest CT to exclude pneumonia. Also venous study of LE. Patient has been chronically anticoagulated and the presentation does not quite fit with pulmonary embolism. (3) Obstructive sleep apnea on CPAP: Code(s): G47.33 - Obstructive sleep apnea (adult) (pediatric); Z99.89 - Dependence on other enabling machines and devices Status: Acute (4) Pulmonary hypertension: Code(s): I27.20 - Pulmonary hypertension, unspecified Status: Acute (5) COPD (chronic obstructive pulmonary disease): Qualifiers: COPD type: emphysema Emphysema type: unspecified Qualified Code(s): J43.9 - Emphysema, unspecified Code(s): J44.9 - Chronic obstructive pulmonary disease, unspecified Status: Acute History of Present Illness History of Present Illness Consult date: 09/20/22 Chief complaint: COPD Exacerbation Narrative: This 82-year-old female presented with 3 day history of progressively increasing shortness of breath. The patient has history of moderate COPD, obstructive sleep apnea on CPAP at home, congestive heart failure, atrial fibrillation, elevated pulmonary artery systolic pressure on last echocardiogram. patient was in her usual state of health until 3 days prior to this admission when she started to have mild cough and progressively increasing shortness of breath. She had no fever chills. She used her CPAP but did not help. On admission she was found to have hypoxemia and the patient was placed on BiPAP support. Earlier today she was taken off the BiPAP support but she dropped her oxyhemoglobin saturation. She has no wheezing hemoptysis chest pain palpitations or lower extremity edema. Her last pulmonary function testing approximately 2 years ago showed FEV1 of 1.12 or 60% predicted with FEV1 to FVC ratio of 47% and mild reduction in lung diffusion capacity at 69% predicted. Chest x-ray shows COPD changes and evidence of prominent pulmonary arteries. On the last echocardiogram in addition to left ventricular hypertrophy she had severely enlarged left atrium, severely enlarged right atrium and elevated pulmonary artery systolic pressure at 50 mmHg. Last download report showed CPAP pressure of 9 cm and very low device AHI. On admission the BNP was over a 10 100. On arterial blood gases she had no hypercapnia. Review of Systems Review of Systems: Patient has chronic shortness of breath on exertion. She has no orthopnea. She has no chest pain or palpitations. She has had chronic diarrhea. She has no history lower extremity edema. [facility] Past Medical History Medical History (Updated 09/20/22 @ 00:16 by Maribell Claros PA-C) BCC (basal cell carcinoma of skin) CHF (congestive heart failure) Patient's last echo was 11/05/2020 with an estimated EF of 45-50% moderate mitral valve regurgitation moderate tricuspi
[2022-09-20 15:06] LABS: RSV RNA, RT-PCR Negative (Negative)
[2022-09-20] MEDS: ALPRAZolam (*CRX) 0.25 MG TABLET PO (20:55)
[2022-09-21] VITALS (19 sets, daily range): BP systolic 105–139; BP diastolic 61–82; PULSE 75–106; RESP 20–33; TEMP 36.3–36.6; O2SAT 95–99
[2022-09-21 05:12] LABS: Alanine Aminotransferase 14 U/L (6-35); Albumin Level 3.8 g/dL (3.5-5.1); Alkaline Phosphatase 77 U/L (38-126); Anion Gap 6 mmol/L (8-16); Aspartate Amino Transferase 23 U/L (14-36); Bilirubin,Total 0.3 mg/dL (0.2-1.3); Blood Urea Nitrogen 41 mg/dL (7-17); Carbon Dioxide 27 mmol/L (22-30); Chloride 104 mmol/L (98-107); Estimated CRCL calculation 41 ml/min; Estimated Glomerular Filt Rate 53; Glucose 141 mg/dL (65-110); Potassium 5.3 mmol/L (3.4-5.0); Sodium 137 mmol/L (137-145)
[2022-09-21 05:13] LABS: Basophils Percent Auto 0.2 % (0.2-1.2); Hematocrit 48.2 % (37.0-47.0); Hemoglobin 15.2 g/dL (12.0-15.0); Immature Granulocyte Absolute 0.19 K/mm3 (0.00-0.031); Immature Granulocyte Percent A 1.1 % (0-0.5); Lymphocytes Absolute Auto 0.88 K/mm3 (0.9-3.2); Lymphocytes Percent Auto 4.9 % (18.3-44.2); Mean Corpuscular HGB Conc 31.5 g/dl (32-36); Mean Corpuscular Hemoglobin 32.9 pg (26-34); Mean Corpuscular Volume 104.3 fl (80-100); Mean Platelet Volume 10.5 fl (7.4-10.4); Monocytes Absolute Auto 0.7 K/mm3 (0.1-0.6); Monocytes Percent Auto 3.9 % (2.6-8.5); Neutrophils Absolute Auto 16.2 K/mm3 (1.3-6.7); Neutrophils Percent Auto 89.9 % (45.5-73.1); Platelet Count Result 198 k/mm3 (150-375); Red Blood Count 4.62 M/mm3 (4.2-5.4); Red Cell Distribution Width 14.7 % (11.5-14.5)
[2022-09-21] MEDS: methylPREDNISolone SOD SUCC 125 MG VIAL 60 MG IV PUSH (06:04)
[2022-09-21] MEDS: PANTOPRAZOLE SODIUM IV 40 MG VIAL IV PUSH (09:13)
[2022-09-21] MEDS: sulfaSALAzine 500 MG TABLET 1000 MG PO ×3 (09:13→17:27)
[2022-09-21] MEDS: DABIGATRAN ETEXILATE 75 MG CAPSULE PO ×2 (09:13→21:54)
[2022-09-21] MEDS: lisinopriL 20 MG TABLET PO (09:13)
[2022-09-21] MEDS: carvediloL 12.5 MG TABLET PO ×2 (09:13→21:54)
[2022-09-21] MEDS: allopurinoL 300 MG TABLET PO (09:13)
[2022-09-21] MEDS: FUROSEMIDE 20 MG TABLET PO (09:13)
--- NOTE | 2022-09-21 09:17 | PM.IMPN ---
Progress Note: A&P Assessment and Plan (1) Acute exacerbation of chronic obstructive pulmonary disease: Code(s): J44.1 - Chronic obstructive pulmonary disease with (acute) exacerbation Status: Acute Assessment and Plan: Continue steroids, nebulizers, levaquin Appreciate pulmonology consultation Chest CT, Dopplers of lower extremity ordered (2) Acute and chronic respiratory failure with hypoxia: Code(s): J96.21 - Acute and chronic respiratory failure with hypoxia Status: Acute Assessment and Plan: Likely secondary to COPD exacerbation Patient does oxygen is but refuses to do so was on BIPAP in ER, then weaned to nc, now back on BIPAP overnight, cont to wean as tolerated (3) Obstructive sleep apnea on CPAP: Code(s): G47.33 - Obstructive sleep apnea (adult) (pediatric); Z99.89 - Dependence on other enabling machines and devices Status: Acute Assessment and Plan: CPAP while here (4) Moderate to severe aortic stenosis: Code(s): I35.0 - Nonrheumatic aortic (valve) stenosis Status: Acute Assessment and Plan: Stable, monitor (5) Atrial fibrillation: Code(s): I48.91 - Unspecified atrial fibrillation Status: Acute Assessment and Plan: Monitor telemetry, rate controlled (6) Chronic anticoagulation: Code(s): Z79.01 - alf (current) use of anticoagulants Status: Acute Assessment and Plan: Continue pradaxa (7) Hypertension: Code(s): I10 - Essential (primary) hypertension Status: Acute Assessment and Plan: Stable monitor, continue home meds Plan DVT prophylaxis with pradaxa GI prophylaxis with PPI Code status full code Subjective Date/time seen: 09/21/22 09:17 Interval history: No overnight events noted. No chest pain or shortness of breath. No nausea, vomiting or diarrhea. No fevers or chills. Patient states she is very worried she is not getting better as fast she would like. She states her wants her checked for RSV. Review of Systems Review of Systems: 12 point review of systems was assessed and was negative except as noted in the HPI Exam Narrative: General: Acute respiratory distress, mentation appears to be alert and oriented per baseline HEENT: Atraumatic, normocephalic, mucous membranes moist CV: Regular rate and rhythm, S1, S2 Lungs: Coarse breath sounds throughout, diminished, scattered rhonchi Abdomen: Soft, nontender, nondistended Extremities: Normal to inspection Skin: No rashes noted, no lesions or wounds seen Objective Data Vital Signs Vital Signs: Vital Signs - 24 hr 09/20/22 09:44 09/20/22 10:00 09/20/22 12:02 Temperature Pulse Rate 101 H 88 Respiratory Rate Blood Pressure Pulse Oximetry 94 Oxygen Delivery Nasal Cannula Oxygen Flow Rate 4 Fraction of Inspired Oxygen 09/20/22 12:00 09/20/22 12:00 09/20/22 11:30 Temperature 97.8 F Pulse Rate 109 H 105 H Respiratory Rate 20 Blood Pressure 141/109 H Pulse Oximetry 93 92 Oxygen Delivery Nasal Cannula Oxygen Flow Rate 4 Fraction of Inspired Oxygen 09/20/22 12:30 09/20/22 13:56 09/20/22 13:58 Temperature Pulse Rate 88 88 Respiratory Rate 20 17 Blood Pressure Pulse Oximetry 94 93 Oxygen Delivery BiPAP BiPAP Oxygen Flow Rate Fraction of Inspired Oxygen 35 09/20/22 14:09 09/20/22 14:00 09/20/22 16:00 Temperature Pulse Rate 92 92 82 Respiratory Rate 24 H Blood Pressure Pulse Oximetry Oxygen Delivery Oxygen Flow Rate Fraction of Inspired Oxygen 09/20/22 16:00 09/20/22 16:00 09/20/22 18:00 Temperature 98.9 F Pulse Rate 88 86 Respiratory Rate 24 H Blood Pressure 101/65 Pulse Oximetry 100 Oxygen Delivery BiPAP Oxygen Flow Rate Fraction of Inspired Oxygen 35 09/20/22 20:00 09/20/22 20:46 09/20/22 20:55 Temperature 97.9 F Pulse Rate 103 H 98 96 Respiratory Rate 20 34
--- NOTE | 2022-09-21 10:10 | PM.PNPUL ---
Progress Note: A&P Assessment and Plan (1) Acute exacerbation of chronic obstructive pulmonary disease: Code(s): J44.1 - Chronic obstructive pulmonary disease with (acute) exacerbation Status: Acute Assessment and Plan: 82-year-old female with a history of COPD, obstructive sleep apnea on CPAP at night present with a few day history of increasing shortness of breath. Chest CT imaging showed a tiny infiltrate left lower lobe which could be due to lower respiratory tract infection. The patient has been on antibiotic, steroids nebulized short-acting bronchodilators for COPD exacerbation. On physical exam she has just distant breath sounds and no wheezing. She is tolerating nasal cannula this a.m.. Plan: she was switched to oral steroids starting in a.m.. Continue with nebulized short-acting bronchodilators current antibiotic supplemental oxygen during the day and BiPAP support at night. (2) CHF (congestive heart failure): Code(s): I50.9 - Heart failure, unspecified Status: Acute (3) Acute and chronic respiratory failure with hypoxia: Code(s): J96.21 - Acute and chronic respiratory failure with hypoxia Status: Acute (4) Obstructive sleep apnea on CPAP: Code(s): G47.33 - Obstructive sleep apnea (adult) (pediatric); Z99.89 - Dependence on other enabling machines and devices Status: Acute (5) Atrial fibrillation: Code(s): I48.91 - Unspecified atrial fibrillation Status: Acute Subjective Date/time seen: 09/21/22 10:10 patient was placed on supplemental oxygen via nasal cannula this a.m.. O2 saturation near 98% of BiPAP on just nasal cannula. She has no other respiratory symptoms. She underwent chest CT that showed a tiny infiltrate left lower lobe. Review of Systems Review of Systems: Patient has chronic shortness of breath on exertion. She has no orthopnea. She has no chest pain or palpitations. She has had chronic diarrhea. She has no history lower extremity edema. Exam Narrative: GENERAL APPEARANCE: Well developed, well nourished, alert and cooperative, and appears to be In mild respiratory distress while sitting up in bed SKIN: Inspection of the skin reveals no rashes, ulcerations or petechiae. HEENT: Sclerae anicteric and conjunctivae pink and moist. Extraocular movements were intact and pupils were equal, round. NECK: Supple. There was no thyroid enlargement, and no tenderness, or masses were felt. LUNGS: Auscultation of the lungs revealed distant breath sounds CARDIAC: There was an irregular rate and rhythm without any murmurs, gallops, rubs. ABDOMEN: Soft and nontender with normal bowel sounds. There was no organomegaly. LYMPH NODES: No lymphadenopathy was appreciated in the neck. EXTREMITIES: No cyanosis, clubbing or edema. NEUROLOGIC: Alert and oriented x 3. Normal affect. Objective Data Vital Signs Vital Signs: Vital Signs - 24 hr 09/20/22 12:02 09/20/22 12:00 09/20/22 12:00 Temperature 36.6 C Pulse Rate 109 H 105 H Respiratory Rate 20 Blood Pressure 141/109 H Pulse Oximetry 94 93 Oxygen Delivery Nasal Cannula Oxygen Flow Rate 4 Fraction of Inspired Oxygen 09/20/22 11:30 09/20/22 12:30 09/20/22 13:56 Temperature Pulse Rate 88 Respiratory Rate 20 Blood Pressure Pulse Oximetry 92 94 Oxygen Delivery Nasal Cannula BiPAP Oxygen Flow Rate 4 Fraction of Inspired Oxygen 35 09/20/22 13:58 09/20/22 14:09 09/20/22 14:00 Temperature Pulse Rate 88 92 92 Respiratory Rate 17 24 H Blood Pressure Pulse Oximetry 93 Oxygen Delivery BiPAP Oxygen Flow Rate Fraction of Inspired Oxygen 09/20/22 16:00 09/20/22 16:00 09/20/22 16:00 Temperature 37.2 C Pulse Rate 82 88 Respiratory Rate 24 H Blood Pressure 101/65 Pulse Oximetry 100 Oxygen Delivery BiPAP Oxygen Flow Rate Fraction of Inspired Oxygen 35 09/20/22 18:00 09/20/22 20:00 09/20/22 20:46 Temperature 36.6 C
[2022-09-21] MEDS: UMECLIDINIUM/VILANTEROL 62.5-25 MCG ELLIPTA 1 PUFF INHALATION (13:16)
[2022-09-22] VITALS (21 sets, daily range): BP systolic 90–130; BP diastolic 62–106; PULSE 45–110; RESP 20–37; TEMP 36–36.6; O2SAT 88–98
--- NOTE | 2022-09-22 | ECHO_ITS ---
Patient Info Name: Giselle Aranda Age: 82 years : 1940 Gender: Female Ht: 66 in Wt: 181 lbs BSA: 1.98 m2 HR: 87 bpm BP: 130 / 90 mmHg Technical Quality: Fair Exam Date: 09/22/2022 2:12 PM Exam Location: [facility] Patient Status: Inpatient Admit Date: 09/19/2022 Staff Ordering Physician: Noe Jauregui MD [facility] Social Worker: John Wynn, DANIEL, RT Attending Provider: Raleigh Denise MD Exam Type: CA echo dop color flow w con Study Info Complete two-dimensional, color flow and Doppler transthoracic echocardiogram is performed with agitated saline. Summary 1. Left ventricular chamber dimension is normal. 2. Definity contrast administered improved wall motion interpretation. 3. Left ventricular systolic function is normal, estimated at 60-65%. 4. The left ventricular diastolic function is grade III diastolic dysfunction. 5. E/e' 8 is minimally elevated. 6. Right ventricular chamber dimension is mildly enlarged. 7. Right ventricular systolic function is reduced and with abnormal TAPSE 1.4 cm. 8. Left atrial chamber dimension is moderately enlarged. 9. Right atrial chamber dimension is mildly enlarged. 10. The aortic valve is not well visualized. Cannot determine number of aortic valve leaflets. 11. There is severe aortic valve stenosis based on a peak velocity of 325.04 cm/s, mean gradient of 17 mmHg, and aortic valve area of 0.73 cm2. 12. The mitral valve has moderately calcified annulus. 13. There is trace tricuspid valve regurgitation. 14. Mild pulmonary hypertension, estimated pulmonary arterial systolic pressure is 48 mmHg. 15. Dilated inferior vena cava with >50% collapse upon inspiration consistent with elevated right atrial pressure, 10 mmHg. Left Ventricle Definity contrast administered improved wall motion interpretation. E/e' 8 is minimally elevated. Left ventricular chamber dimension is normal. Left ventricular systolic function is normal, estimated at 60-65%. The left ventricular diastolic function is grade III diastolic dysfunction. Right Ventricle Right ventricular systolic function is reduced and with abnormal TAPSE 1.4 cm. Right ventricular chamber dimension is mildly enlarged. Left Atria Left atrial chamber dimension is moderately enlarged. Right Atria Right atrial chamber dimension is mildly enlarged. Aortic Valve The aortic valve is not well visualized. Cannot determine number of aortic valve leaflets. There is severe aortic valve stenosis based on a peak velocity of 325.04 cm/s, mean gradient of 17 mmHg, and aortic valve area of 0.73 cm2. There is no aortic valve regurgitation. Pulmonic Valve There is no pulmonic regurgitation. Mitral Valve The mitral valve has moderately calcified annulus. There is no mitral valve stenosis. There is no mitral valve regurgitation. Tricuspid Valve There is trace tricuspid valve regurgitation. Mild pulmonary hypertension, estimated pulmonary arterial systolic pressure is 48 mmHg. Pericardium/Pleural There is no pericardial effusion. Inferior Vena Cava Dilated inferior vena cava with >50% collapse upon inspiration consistent with elevated right atrial pressure, 10 mmHg. Aorta The aortic root size at the sinus of Valsalva is normal. Left Ventricular Outflow Tract Name Value Normal LVOT 2D ------
[2022-09-22] MEDS: ONDANSETRON INJ 4 MG/2 ML VIAL IV PUSH (02:59)
[2022-09-22] MEDS: ALPRAZolam (*CRX) 0.25 MG TABLET PO ×3 (03:00→21:19)
[2022-09-22 05:08] LABS: Basophils Absolute Auto 0.1 K/mm3 (0.0-0.1); Basophils Percent Auto 0.3 % (0.2-1.2); Hemoglobin 15.4 g/dL (12.0-15.0); Immature Granulocyte Absolute 0.19 K/mm3 (0.00-0.031); Immature Granulocyte Percent A 1.2 % (0-0.5); Lymphocytes Absolute Auto 1.56 K/mm3 (0.9-3.2); Lymphocytes Percent Auto 9.9 % (18.3-44.2); Mean Corpuscular HGB Conc 30.8 g/dl (32-36); Mean Corpuscular Hemoglobin 32.9 pg (26-34); Mean Corpuscular Volume 106.8 fl (80-100); Mean Platelet Volume 10.1 fl (7.4-10.4); Monocytes Absolute Auto 1.6 K/mm3 (0.1-0.6); Monocytes Percent Auto 10.2 % (2.6-8.5); Neutrophils Absolute Auto 12.4 K/mm3 (1.3-6.7); Neutrophils Percent Auto 78.4 % (45.5-73.1); Nucleated Red Blood Cells Perc 0.1 % (0.0-0.2); Platelet Count Result 196 k/mm3 (150-375); Red Blood Count 4.68 M/mm3 (4.2-5.4); Red Cell Distribution Width 14.7 % (11.5-14.5); White Blood Count 15.8 K/mm3 (4.5-10.0)
[2022-09-22 05:14] LABS: Alanine Aminotransferase 16 U/L (6-35); Albumin Level 3.5 g/dL (3.5-5.1); Alkaline Phosphatase 80 U/L (38-126); Anion Gap 4 mmol/L (8-16); Aspartate Amino Transferase 21 U/L (14-36); Bilirubin,Total 0.2 mg/dL (0.2-1.3); Blood Urea Nitrogen 46 mg/dL (7-17); Calcium 8.7 mg/dL (8.4-10.2); Carbon Dioxide 31 mmol/L (22-30); Chloride 102 mmol/L (98-107); Estimated CRCL calculation 38 ml/min; Estimated Glomerular Filt Rate 47; Glucose 106 mg/dL (65-110); Sodium 137 mmol/L (137-145)
[2022-09-22 05:52] LABS: Macrocytosis 1+ (NORMAL); Platelet Estimate Adequate (Adequate); Stomatocytes 1+ (NORMAL)
[2022-09-22 06:53] LABS: Schistocytes None Seen (NORMAL)
[2022-09-22] MEDS: predniSONE 20 MG TABLET 40 MG PO (09:38)
[2022-09-22] MEDS: allopurinoL 300 MG TABLET PO (09:38)
[2022-09-22] MEDS: FUROSEMIDE 20 MG TABLET PO (09:38)
[2022-09-22] MEDS: sulfaSALAzine 500 MG TABLET 1000 MG PO ×2 (09:38→12:00)
[2022-09-22] MEDS: lisinopriL 20 MG TABLET PO (09:38)
[2022-09-22] MEDS: PANTOPRAZOLE SODIUM IV 40 MG VIAL IV PUSH (09:38)
[2022-09-22] MEDS: DABIGATRAN ETEXILATE 75 MG CAPSULE PO ×2 (09:38→21:19)
[2022-09-22] MEDS: carvediloL 12.5 MG TABLET PO ×2 (09:39→21:19)
--- NOTE | 2022-09-22 09:57 | PM.PNPUL ---
Progress Note: A&P Assessment and Plan (1) Acute exacerbation of chronic obstructive pulmonary disease: Code(s): J44.1 - Chronic obstructive pulmonary disease with (acute) exacerbation Status: Acute Assessment and Plan: 82-year-old female with a history of COPD, obstructive sleep apnea on CPAP at night presented with a few day history of increasing shortness of breath. Chest CT imaging showed a tiny infiltrate left lower lobe which could be due to lower respiratory tract infection. The patient has been on antibiotic, steroids nebulized short-acting bronchodilators for COPD exacerbation. On physical exam she has just distant breath sounds and no wheezing. She she continues to complain of generalized weakness. She still on relatively high FiO2 despite absence of significant lung infiltrates or wheezing. Plan: Will repeat blood gases this a.m. Continue with nebulized short-acting bronchodilators current antibiotic supplemental oxygen during the day and BiPAP support at night. (2) CHF (congestive heart failure): Code(s): I50.9 - Heart failure, unspecified Status: Acute (3) Acute and chronic respiratory failure with hypoxia: Code(s): J96.21 - Acute and chronic respiratory failure with hypoxia Status: Acute (4) Obstructive sleep apnea on CPAP: Code(s): G47.33 - Obstructive sleep apnea (adult) (pediatric); Z99.89 - Dependence on other enabling machines and devices Status: Acute (5) Atrial fibrillation: Code(s): I48.91 - Unspecified atrial fibrillation Status: Acute Subjective Date/time seen: 09/22/22 09:57 continues to complain of not feeling well, feeling weak. She has no new respiratory symptoms like cough wheezing fever or chills. She still on BiPAP support at night. Currently on 5 L nasal cannula. Also uses BiPAP support p.r.n. during the day. Review of Systems Review of Systems: All system review is negative except as noted in HPI and below Exam Narrative: GENERAL APPEARANCE: Well developed, well nourished, alert and cooperative, and appears to be In mild respiratory distress while sitting up in bed SKIN: Inspection of the skin reveals no rashes, ulcerations or petechiae. HEENT: Sclerae anicteric and conjunctivae pink and moist. Extraocular movements were intact and pupils were equal, round. NECK: Supple. There was no thyroid enlargement, and no tenderness, or masses were felt. LUNGS: Auscultation of the lungs revealed distant breath sounds, no wheezing CARDIAC: There was an irregular rate and rhythm without any murmurs, gallops, rubs. ABDOMEN: Soft and nontender with normal bowel sounds. There was no organomegaly. LYMPH NODES: No lymphadenopathy was appreciated in the neck. EXTREMITIES: No cyanosis, clubbing or edema. NEUROLOGIC: Alert and oriented x 3. Normal affect. Objective Data Vital Signs Vital Signs: Vital Signs - 24 hr 09/21/22 10:05 09/21/22 10:05 09/21/22 10:19 Temperature Pulse Rate 87 87 99 Respiratory Rate 28 H 24 H Blood Pressure Pulse Oximetry 95 97 Oxygen Delivery High Flow Nasal Cannula BiPAP Oxygen Flow Rate 6 Fraction of Inspired Oxygen 09/21/22 10:00 09/21/22 12:00 09/21/22 12:00 Temperature 36.6 C Pulse Rate 88 96 Respiratory Rate 24 H Blood Pressure 105/82 Pulse Oximetry 95 97 Oxygen Delivery BiPAP Oxygen Flow Rate Fraction of Inspired Oxygen 35 09/21/22 12:00 09/21/22 14:00 09/21/22 15:31 Temperature Pulse Rate 88 86 106 H Respiratory Rate 31 H Blood Pressure Pulse Oximetry 98 Oxygen Delivery BiPAP Oxygen Flow Rate Fraction of Inspired Oxygen 09/21/22 16:00 09/21/22 16:00 09/21/22 18:00 Temperature Pulse Rate 82 94 Respiratory Rate Blood Pressure Pulse Oximetry 97 Oxygen Delivery BiPAP Oxygen Flow Rate Fraction of Inspired Oxygen 35 09/21/22 16:00 09/21/22 20:00 09/21/22 21:54 Temperature 36.3 C L 36.5 C Pul
[2022-09-22] MEDS: UMECLIDINIUM/VILANTEROL 62.5-25 MCG ELLIPTA 1 PUFF INHALATION (10:17)
[2022-09-22 11:13] LABS: Alveolar/Arterial O2 Gradient 101.1 mmHg; Base Excess ABG 3.8 mEq/l (+/-2.0); Fractional Inspired Oxygen 35 %; Oxygen Content ABG 21.3 %vol (16.0-22.0); Oxyhemoglobin 89.9 % THb (90.0-100.0); PO2 ABG 60.5 mmHg (80.0-100.0); PO2 FiO2 Ratio Arterial Blood 1.73 %; Total Hemoglobin 16.9 g/dL (12.0-18.0)
[2022-09-22 11:16] LABS: PCO2 ABG 75.7 mmHg (35.0-45.0)
[2022-09-22 11:17] LABS: Device NON-INVASIVE VENT; Modified Allen's Test Pass; Oxygen Saturation ABG 86.7 % (95.0-100.0); Site Drawn RIGHT RADIAL
[2022-09-22 11:20] LABS: Non-Invasive Expiratory Pressure 5 CMH2O; Non-Invasive Inspiratory Pressure 10 CMH2O; Non-Invasive Vent Rate 20 /MIN
--- NOTE | 2022-09-22 11:48 | PM.IMPN ---
Progress Note: A&P Assessment and Plan (1) Acute exacerbation of chronic obstructive pulmonary disease: Code(s): J44.1 - Chronic obstructive pulmonary disease with (acute) exacerbation Status: Acute Assessment and Plan: Continue steroids, nebulizers, levaquin Appreciate pulmonology consultation Chest CT, Dopplers of lower extremity ordered (2) Acute and chronic respiratory failure with hypoxia: Code(s): J96.21 - Acute and chronic respiratory failure with hypoxia Status: Acute Assessment and Plan: Likely secondary to COPD exacerbation Patient does oxygen is but refuses to do so was on BIPAP in ER, then weaned to nc, now back on BIPAP overnight, cont to wean as tolerated (3) Obstructive sleep apnea on CPAP: Code(s): G47.33 - Obstructive sleep apnea (adult) (pediatric); Z99.89 - Dependence on other enabling machines and devices Status: Acute Assessment and Plan: CPAP while here (4) Moderate to severe aortic stenosis: Code(s): I35.0 - Nonrheumatic aortic (valve) stenosis Status: Acute Assessment and Plan: Stable, monitor (5) Atrial fibrillation: Code(s): I48.91 - Unspecified atrial fibrillation Status: Acute Assessment and Plan: Monitor telemetry, rate controlled (6) Chronic anticoagulation: 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 Patient has mild shortness of breath. No chest pain. No abdominal pain, nausea, no vomiting. Mood stable. Review of Systems Review of Systems: ROS unobtainable: Yes unobtainable due to medical condition Exam Narrative: General: Acute respiratory distress, mentation appears to be alert and oriented per baseline HEENT: Atraumatic, normocephalic, mucous membranes moist CV: Regular rate and rhythm, S1, S2 Lungs: Coarse breath sounds throughout, diminished, scattered rhonchi Abdomen: Soft, nontender, nondistended Extremities: Normal to inspection Skin: No rashes noted, no lesions or wounds seen Const: Other: Well-developed, nontoxic-appearing female sitting up in bed on BiPAP. Weight: 83.7 kilograms. BMI: 29.8. HENMT: Other: Normocephalic, atraumatic. Nares patent. Oral mucosa appears tacky through the BiPAP mask. Eyes: Other: Pupils are reactive. Extraocular motions intact. Sclerae anicteric. Neck: Other: No lymphadenopathy or obvious JVD. Resp: Other: Respirations are nonlabored. She is able to speak freely through the BiPAP. Lung sounds are diminished throughout with expiratory wheezing. Cardio: Other: Irregularly irregular rate and rhythm. Systolic murmur at the upper sternal border. GI: Other: Abdomen is soft, nontender, and nondistended with positive bowel sounds. Skin: Other: Warm and dry. No rash or lesion on limited exam. Neuro: Other: Alert and oriented. Cranial nerves 2-12 grossly intact. No focal deficits to casual conversation. Extrem: Other: No cyanosis, clubbing, or significant edema. Peripheral pulses palpable. Negative Stefano sign bilaterally. Psych: Other: Pleasant and cooperative with appropriate mood and affect. Objective Data Vital Signs Vital Signs: Vital Signs - 24 hr 09/21/22 12:00 09/21/22 12:00 09/21/22 12:00 Temperature 36.6 C Pulse Rate 96 88 Respiratory Rate 24 H Blood Pressure 105/82 Pulse Oximetry 95 97 Oxygen Delivery BiPAP Fraction of Inspired Oxygen 35 09/21/22 14:00 09/21/22 15:31 09/21/22 16:00 Temperature Pulse Rate 86 106 H Respiratory Rate 31 H Blood Pressure
[2022-09-22] MEDS: ACETAMINOPHEN 325 MG TABLET 650 MG PO (11:57)
[2022-09-22 12:49] LABS: Influenza A QL RT-PCR Negative (Negative); Influenza B QL RT-PCR Negative (Negative)
[2022-09-22 13:12] LABS: Alveolar/Arterial O2 Gradient 101.7 mmHg; Base Excess ABG 3.3 mEq/l (+/-2.0); Fractional Inspired Oxygen 35 %; HCO3 ABG 32.7 mEq/l (22.0-26.0); Oxygen Content ABG 21.1 %vol (16.0-22.0); Oxygen Saturation ABG 89.7 % (95.0-100.0); Oxyhemoglobin 91.5 % THb (90.0-100.0); PO2 ABG 65.5 mmHg (80.0-100.0); PO2 FiO2 Ratio Arterial Blood 1.87 %; Total Hemoglobin 16.4 g/dL (12.0-18.0)
[2022-09-22 13:15] LABS: pH ABG 7.283 (7.350-7.450)
[2022-09-22 13:16] LABS: Device NON-INVASIVE VENT; Modified Allen's Test Pass; Non-Invasive Expiratory Pressure 5 CMH2O; Non-Invasive Inspiratory Pressure 16 CMH2O; Non-Invasive Vent Rate 20 /MIN; PCO2 ABG 70.8 mmHg (35.0-45.0); Site Drawn LEFT RADIAL
[2022-09-22] MEDS: PERFLUTREN LIPID MICROSPHERES 1.5 ML VIAL DILUTED TO 10 ML TOTAL VOLUME IV PUSH (14:07)
--- NOTE | 2022-09-22 14:07 | IVDEFINITY ---
Prior to administration of IV Definity the patient was educated on the risks and benefits of the imaging enhancing agent including potential adverse side effects. The patient verbalized understanding. Allergies were verified. No exclusion criteria were identified and at least one of the following inclusion criteria were met: 1) physician request, 2) patient technically difficult to image (per the [place] [employer] guidelines of two or more segments not discernable within the apical view), or 3) questionable left ventricular function. ?
[2022-09-22 15:43] LABS: RSV RNA, RT-PCR Positive (Negative)
[2022-09-22] MEDS: DEXTROSE 5%/0.9% SOD CHL 1,000 ML 50 ML IV CONT (15:55)
[2022-09-22 20:28] LABS: Alveolar/Arterial O2 Gradient 110.7 mmHg; Base Excess ABG 2.5 mEq/l (+/-2.0); Fractional Inspired Oxygen 35 %; HCO3 ABG 29.8 mEq/l (22.0-26.0); Oxygen Content ABG 21.4 %vol (16.0-22.0); Oxygen Saturation ABG 93.9 % (95.0-100.0); Oxyhemoglobin 94.2 % THb (90.0-100.0); PCO2 ABG 55.8 mmHg (35.0-45.0); PO2 FiO2 Ratio Arterial Blood 2.11 %; Total Hemoglobin 16.2 g/dL (12.0-18.0); pH ABG 7.345 (7.350-7.450)
[2022-09-22 20:36] LABS: Device NON-INVASIVE VENT; Modified Allen's Test Pass; Site Drawn RIGHT RADIAL
[2022-09-22 20:37] LABS: Non-Invasive Expiratory Pressure 5 CMH2O; Non-Invasive Inspiratory Pressure 16 CMH2O; Non-Invasive Vent Rate 20 /MIN
[2022-09-23] VITALS (22 sets, daily range): BP systolic 93–121; BP diastolic 58–88; PULSE 58–117; RESP 20–28; TEMP 35.8–37.1; O2SAT 93–97
[2022-09-23 05:10] LABS: Basophils Absolute Auto 0.1 K/mm3 (0.0-0.1); Basophils Percent Auto 0.5 % (0.2-1.2); Eosinophils Percent Auto 0.1 % (0-4.4); Hematocrit 47.3 % (37.0-47.0); Immature Granulocyte Absolute 0.12 K/mm3 (0.00-0.031); Immature Granulocyte Percent A 1.2 % (0-0.5); Lymphocytes Absolute Auto 1.86 K/mm3 (0.9-3.2); Lymphocytes Percent Auto 18.1 % (18.3-44.2); Mean Corpuscular HGB Conc 31.7 g/dl (32-36); Mean Corpuscular Volume 100.9 fl (80-100); Mean Platelet Volume 10.4 fl (7.4-10.4); Monocytes Absolute Auto 0.9 K/mm3 (0.1-0.6); Neutrophils Absolute Auto 7.3 K/mm3 (1.3-6.7); Neutrophils Percent Auto 71.1 % (45.5-73.1); Nucleated Red Blood Cells Perc 0.3 % (0.0-0.2); Platelet Count Result 202 k/mm3 (150-375); Red Blood Count 4.69 M/mm3 (4.2-5.4); Red Cell Distribution Width 14.3 % (11.5-14.5); White Blood Count 10.3 K/mm3 (4.5-10.0)
[2022-09-23 05:22] LABS: Alanine Aminotransferase 14 U/L (6-35); Albumin Level 3.2 g/dL (3.5-5.1); Alkaline Phosphatase 78 U/L (38-126); Anion Gap 6 mmol/L (8-16); Aspartate Amino Transferase 17 U/L (14-36); Bilirubin,Total 0.4 mg/dL (0.2-1.3); Blood Urea Nitrogen 40 mg/dL (7-17); Calcium 8.6 mg/dL (8.4-10.2); Carbon Dioxide 31 mmol/L (22-30); Chloride 102 mmol/L (98-107); Estimated CRCL calculation 37 ml/min; Estimated Glomerular Filt Rate 47; Glucose 122 mg/dL (65-110); Potassium 4.1 mmol/L (3.4-5.0); Sodium 139 mmol/L (137-145)
--- NOTE | 2022-09-23 09:35 | PM.IMPN ---
Progress Note: A&P Assessment and Plan (1) Acute exacerbation of chronic obstructive pulmonary disease: Code(s): J44.1 - Chronic obstructive pulmonary disease with (acute) exacerbation Status: Acute Assessment and Plan: Continue steroids, nebulizers, levaquin Appreciate pulmonology consultation Chest CT, Dopplers of lower extremity ordered (2) Acute and chronic respiratory failure with hypoxia: Code(s): J96.21 - Acute and chronic respiratory failure with hypoxia Status: Acute Assessment and Plan: Likely secondary to COPD exacerbation Patient does oxygen is but refuses to do so was on BIPAP in ER, then weaned to nc, now back on BIPAP overnight, cont to wean as tolerated (3) Obstructive sleep apnea on CPAP: Code(s): G47.33 - Obstructive sleep apnea (adult) (pediatric); Z99.89 - Dependence on other enabling machines and devices Status: Acute Assessment and Plan: CPAP while here (4) Moderate to severe aortic stenosis: Code(s): I35.0 - Nonrheumatic aortic (valve) stenosis Status: Acute Assessment and Plan: Stable, monitor (5) Atrial fibrillation: Code(s): I48.91 - Unspecified atrial fibrillation Status: Acute Assessment and Plan: Monitor telemetry, rate controlled (6) Chronic anticoagulation: Code(s): Z79.01 - group home (current) use of anticoagulants Status: Acute Assessment and Plan: Continue pradaxa (7) Hypertension: Code(s): I10 - Essential (primary) hypertension Status: Acute Assessment and Plan: Stable monitor, continue home meds Plan DVT prophylaxis with pradaxa GI prophylaxis with PPI Code status full code Subjective Date/time seen: 09/23/22 09:35 Patient was seen during morning rounds today. Patient is wearing a BIPAP. Mild shortness of breath, no chest pain. No abdominal pain, no nausea, no vomiting. Review of Systems Review of Systems: All systems reviewed & are unremarkable except as noted in HPI and below (the history and physical exam.) ROS unobtainable: Yes unobtainable due to medical condition Exam Narrative: General: Acute respiratory distress, mentation appears to be alert and oriented per baseline HEENT: Atraumatic, normocephalic, mucous membranes moist CV: Regular rate and rhythm, S1, S2 Lungs: Coarse breath sounds throughout, diminished, scattered rhonchi Abdomen: Soft, nontender, nondistended Extremities: Normal to inspection Skin: No rashes noted, no lesions or wounds seen Const: Other: Well-developed, nontoxic-appearing female sitting up in bed on BiPAP. Weight: 83.7 kilograms. BMI: 29.8. HENMT: Other: Normocephalic, atraumatic. Nares patent. Oral mucosa appears tacky through the BiPAP mask. Eyes: Other: Pupils are reactive. Extraocular motions intact. Sclerae anicteric. Neck: Other: No lymphadenopathy or obvious JVD. Resp: Other: Respirations are nonlabored. She is able to speak freely through the BiPAP. Lung sounds are diminished throughout with expiratory wheezing. Cardio: Other: Irregularly irregular rate and rhythm. Systolic murmur at the upper sternal border. GI: Other: Abdomen is soft, nontender, and nondistended with positive bowel sounds. Skin: Other: Warm and dry. No rash or lesion on limited exam. Neuro: Other: Alert and oriented. Cranial nerves 2-12 grossly intact. No focal deficits to casual conversation. Extrem: Other: No cyanosis, clubbing, or significant edema. Peripheral pulses palpable. Negative Stefano sign bilaterally. Psych: Other: Pleasant and cooperative with appropriate mood and affect. Objective Data Vital Signs Vital Signs: Vital Signs - 24 hr 09/22/22 09:39 09/22/22 10:23 09/22/22 10:24 Temperature Pulse Rate 104 H 107 H 107 H Respiratory Rate 37 H 37 H Blood Pressure Pulse Oximetry 91 Oxygen Delivery BiPAP Fraction of Inspired Oxygen 09/22/22 11:46 12
--- NOTE | 2022-09-23 10:20 | PM.PNPUL ---
Progress Note: A&P Assessment and Plan (1) Acute exacerbation of chronic obstructive pulmonary disease: Code(s): J44.1 - Chronic obstructive pulmonary disease with (acute) exacerbation Status: Acute Assessment and Plan: 82-year-old female with a history of COPD, obstructive sleep apnea on CPAP at night presented with a few day history of increasing shortness of breath. Chest CT imaging showed a tiny infiltrate left lower lobe which could be due to lower respiratory tract infection. On repeat testing she had a positive test for RSV. The patient has been on antibiotic, steroids nebulized short-acting bronchodilators for COPD exacerbation. On physical exam she has just distant breath sounds and no wheezing. Respiratory status improved somewhat this a.m.. Plan: Will repeat blood gases this a.m. Continue with nebulized short-acting bronchodilators current antibiotic,supplemental oxygen, and BiPAP support at night and p.r.n. during the day.. (2) CHF (congestive heart failure): Code(s): I50.9 - Heart failure, unspecified Status: Acute (3) Acute and chronic respiratory failure with hypoxia: Code(s): J96.21 - Acute and chronic respiratory failure with hypoxia Status: Acute (4) Obstructive sleep apnea on CPAP: Code(s): G47.33 - Obstructive sleep apnea (adult) (pediatric); Z99.89 - Dependence on other enabling machines and devices Status: Acute (5) Atrial fibrillation: Code(s): I48.91 - Unspecified atrial fibrillation Status: Acute Subjective Date/time seen: 09/23/22 10:20 patient remained on BiPAP support throughout the night. Complaining of a being thirsty this a.m.. Shortness of breath about unchanged. Placed on supplemental oxygen 5 liters/minute after disease in BiPAP. while on BiPAP, ABGs showed a lower pCO2 last night. On repeat testing she tested positive for RSV. Exam Narrative: GENERAL APPEARANCE: Well developed, well nourished, alert and cooperative, and appears to be In mild respiratory distress while sitting up in bed SKIN: Inspection of the skin reveals no rashes, ulcerations or petechiae. HEENT: Sclerae anicteric and conjunctivae pink and moist. Extraocular movements were intact and pupils were equal, round. NECK: Supple. There was no thyroid enlargement, and no tenderness, or masses were felt. LUNGS: Auscultation of the lungs revealed distant breath sounds, no wheezing CARDIAC: There was an irregular rate and rhythm without any murmurs, gallops, rubs. ABDOMEN: Soft and nontender with normal bowel sounds. There was no organomegaly. LYMPH NODES: No lymphadenopathy was appreciated in the neck. EXTREMITIES: No cyanosis, clubbing or edema. NEUROLOGIC: Alert and oriented x 3. Normal affect. Objective Data Vital Signs Vital Signs: Vital Signs - 24 hr 09/22/22 10:23 09/22/22 10:24 09/22/22 11:46 Temperature Pulse Rate 107 H 107 H Respiratory Rate 37 H 37 H Blood Pressure Pulse Oximetry 91 Oxygen Delivery BiPAP BiPAP Fraction of Inspired Oxygen 09/22/22 12:00 09/22/22 15:12 09/22/22 15:13 Temperature 36.1 C L Pulse Rate 102 H 94 94 Respiratory Rate 29 H 23 H 23 H Blood Pressure 109/81 Pulse Oximetry 93 95 Oxygen Delivery BiPAP Fraction of Inspired Oxygen 09/22/22 12:00 09/22/22 12:00 09/22/22 14:00 Temperature Pulse Rate 101 H 101 H Respiratory Rate Blood Pressure Pulse Oximetry 94 Oxygen Delivery BiPAP Fraction of Inspired Oxygen 35 09/22/22 16:00 09/22/22 16:00 09/22/22 16:00 Temperature 36.0 C L Pulse Rate 99 45 L Respiratory Rate 25 H Blood Pressure 110/64 Pulse Oximetry 95 96 Oxygen Delivery BiPAP Fraction of Inspired Oxygen 35 09/22/22 18:00 09/22/22 20:00 09/22/22 21:19 Temperature 36.6 C Pulse Rate 99 105 H 102 H Respiratory Rate 26 H Blood Pressure 112/67 Pulse Oximetry 96 Oxygen Delivery Fraction of Inspired Oxygen
[2022-09-23] MEDS: carvediloL 12.5 MG TABLET PO ×2 (10:28→20:38)
[2022-09-23] MEDS: predniSONE 20 MG TABLET 40 MG PO (10:34)
[2022-09-23] MEDS: DABIGATRAN ETEXILATE 75 MG CAPSULE PO ×2 (10:34→20:39)
[2022-09-23] MEDS: allopurinoL 300 MG TABLET PO (10:34)
[2022-09-23] MEDS: lisinopriL 20 MG TABLET PO (10:35)
[2022-09-23] MEDS: UMECLIDINIUM/VILANTEROL 62.5-25 MCG ELLIPTA 1 PUFF INHALATION (10:39)
[2022-09-23 10:50] LABS: Alveolar/Arterial O2 Gradient 175.8 mmHg; Base Excess ABG 4.9 mEq/l (+/-2.0); Fractional Inspired Oxygen 44 %; HCO3 ABG 31.1 mEq/l (22.0-26.0); Oxygen Content ABG 22.6 %vol (16.0-22.0); Oxygen Saturation ABG 95.7 % (95.0-100.0); Oxyhemoglobin 95.2 % THb (90.0-100.0); PCO2 ABG 50.7 mmHg (35.0-45.0); PO2 ABG 80.1 mmHg (80.0-100.0); PO2 FiO2 Ratio Arterial Blood 1.82 %; Total Hemoglobin 16.9 g/dL (12.0-18.0); pH ABG 7.405 (7.350-7.450)
[2022-09-23 10:51] LABS: Device HIGH FLOW NASAL CANN; Modified Allen's Test Pass; Site Drawn RIGHT RADIAL
--- NOTE | 2022-09-23 13:50 | PCRCNOTE ---
Window of time for administration has passed. See next scheduled administration.
[2022-09-23] MEDS: PANTOPRAZOLE SODIUM IV 40 MG VIAL IV PUSH (14:33)
[2022-09-23] MEDS: POTASSIUM CHLORIDE 10 MEQ TABLET PO (14:34)
[2022-09-23] MEDS: FUROSEMIDE INJ 40 MG/4 ML VIAL IV PUSH (14:35)
[2022-09-23] MEDS: ACETAMINOPHEN 325 MG TABLET 650 MG PO (20:43)
[2022-09-23] MEDS: ALPRAZolam (*CRX) 0.25 MG TABLET PO (20:43)
[2022-09-23] MEDS: SALINE LOCK FLUSH 10 ML IV PUSH (21:42)
[2022-09-24] VITALS (21 sets, daily range): BP systolic 106–148; BP diastolic 50–96; PULSE 92–117; RESP 16–29; TEMP 36.4–37.1; O2SAT 95–98
[2022-09-24 05:17] LABS: Basophils Percent Auto 0.1 % (0.2-1.2); Eosinophils Percent Auto 0.3 % (0-4.4); Hematocrit 51.7 % (37.0-47.0); Hemoglobin 16.3 g/dL (12.0-15.0); Immature Granulocyte Absolute 0.14 K/mm3 (0.00-0.031); Immature Granulocyte Percent A 1.6 % (0-0.5); Lymphocytes Absolute Auto 2.35 K/mm3 (0.9-3.2); Lymphocytes Percent Auto 26.3 % (18.3-44.2); Mean Corpuscular HGB Conc 31.5 g/dl (32-36); Mean Corpuscular Hemoglobin 33.1 pg (26-34); Mean Corpuscular Volume 105.1 fl (80-100); Monocytes Percent Auto 11.3 % (2.6-8.5); Neutrophils Absolute Auto 5.4 K/mm3 (1.3-6.7); Neutrophils Percent Auto 60.4 % (45.5-73.1); Platelet Count Result 201 k/mm3 (150-375); Red Blood Count 4.92 M/mm3 (4.2-5.4); Red Cell Distribution Width 14.6 % (11.5-14.5)
[2022-09-24 05:36] LABS: Alanine Aminotransferase 13 U/L (6-35); Albumin Level 3.5 g/dL (3.5-5.1); Alkaline Phosphatase 69 U/L (38-126); Anion Gap 4 mmol/L (8-16); Aspartate Amino Transferase 19 U/L (14-36); Bilirubin,Total 0.4 mg/dL (0.2-1.3); Blood Urea Nitrogen 41 mg/dL (7-17); Calcium 8.9 mg/dL (8.4-10.2); Carbon Dioxide 32 mmol/L (22-30); Chloride 101 mmol/L (98-107); Estimated CRCL calculation 34 ml/min; Estimated Glomerular Filt Rate 43; Glucose 82 mg/dL (65-110); Potassium 4.6 mmol/L (3.4-5.0); Sodium 137 mmol/L (137-145)
[2022-09-24] MEDS: SALINE LOCK FLUSH 10 ML IV PUSH ×3 (05:49→21:27)
[2022-09-24] MEDS: predniSONE 20 MG TABLET 40 MG PO (08:24)
[2022-09-24] MEDS: allopurinoL 300 MG TABLET PO (08:24)
[2022-09-24] MEDS: PANTOPRAZOLE SODIUM IV 40 MG VIAL IV PUSH (08:24)
[2022-09-24] MEDS: carvediloL 12.5 MG TABLET PO ×2 (08:25→21:27)
[2022-09-24] MEDS: DABIGATRAN ETEXILATE 75 MG CAPSULE PO ×2 (08:25→21:27)
[2022-09-24] MEDS: lisinopriL 20 MG TABLET PO (08:27)
[2022-09-24] MEDS: sulfaSALAzine 500 MG TABLET 1000 MG PO ×2 (08:28→16:30)
[2022-09-24] MEDS: FUROSEMIDE INJ 40 MG/4 ML VIAL IV PUSH (08:36)
[2022-09-24] MEDS: POTASSIUM CHLORIDE 10 MEQ TABLET.ER PO (12:01)
--- NOTE | 2022-09-24 12:03 | PM.PNPUL ---
Progress Note: A&P Assessment and Plan (1) Acute exacerbation of chronic obstructive pulmonary disease: Code(s): J44.1 - Chronic obstructive pulmonary disease with (acute) exacerbation Status: Acute Assessment and Plan: 82-year-old female with history of COPD, obstructive sleep apnea on CPAP at night presented with a few day history of increasing shortness of breath. Chest CT imaging showed a tiny infiltrate left lower lobe which could be due to lower respiratory tract infection. On repeat testing she had a positive test for RSV. The patient has been on antibiotic, steroids nebulized short-acting bronchodilators for COPD exacerbation. On physical exam she has just distant breath sounds and no wheezing. Respiratory status has improved over the last 48 hours, the patient now using BiPAP primarily at night. chest x-ray essentially unchanged as is the respiratory exam. Plan: Continue with current regimen for COPD exacerbation related to RSV infection. Continue with nebulized short-acting bronchodilators,supplemental oxygen, and BiPAP support at night and p.r.n. during the day. out of bed to chair. WBC back in the normal range. In light of possible right lower lobe infiltrate on today's chest x-ray, continue with levofloxacin IV for now while monitoring for nosocomial pneumonia. (2) CHF (congestive heart failure): Code(s): I50.9 - Heart failure, unspecified Status: Acute (3) Acute and chronic respiratory failure with hypoxia: Code(s): J96.21 - Acute and chronic respiratory failure with hypoxia Status: Acute (4) Obstructive sleep apnea on CPAP: Code(s): G47.33 - Obstructive sleep apnea (adult) (pediatric); Z99.89 - Dependence on other enabling machines and devices Status: Acute (5) Atrial fibrillation: Code(s): I48.91 - Unspecified atrial fibrillation Status: Acute Subjective Date/time seen: 09/24/22 12:03 Patient used BiPAP last night. Currently on supplemental oxygen. She has no respiratory symptoms. Complains of some weakness but less than before. No new respiratory symptoms. She continues to have a dry mouth requesting water. Review of Systems Review of Systems: All systems reviewed & are unremarkable except as noted in HPI and below (the history and physical exam.) Exam Narrative: GENERAL APPEARANCE: Well developed, well nourished, alert and cooperative, and appears to be In mild respiratory distress while sitting up in bed SKIN: Inspection of the skin reveals no rashes, ulcerations or petechiae. HEENT: Sclerae anicteric and conjunctivae pink and moist. Extraocular movements were intact and pupils were equal, round. NECK: Supple. There was no thyroid enlargement, and no tenderness, or masses were felt. LUNGS: Auscultation of the lungs revealed distant breath sounds, no wheezing CARDIAC: There was an irregular rate and rhythm without any murmurs, gallops, rubs. ABDOMEN: Soft and nontender with normal bowel sounds. There was no organomegaly. LYMPH NODES: No lymphadenopathy was appreciated in the neck. EXTREMITIES: No cyanosis, clubbing or edema. NEUROLOGIC: Alert and oriented x 3. Normal affect. Objective Data Vital Signs Vital Signs: Vital Signs - 24 hr 09/23/22 14:00 09/23/22 15:57 09/23/22 16:00 Temperature 36.2 C L Pulse Rate 99 98 58 L Respiratory Rate 25 H Blood Pressure 112/70 Pulse Oximetry 96 95 Oxygen Delivery CPAP Oxygen Flow Rate Fraction of Inspired Oxygen 35 09/23/22 17:10 09/23/22 17:15 09/23/22 16:00 Temperature Pulse Rate 106 H 106 H 106 H Respiratory Rate 21 H 21 H Blood Pressure Pulse Oximetry 96 Oxygen Delivery BiPAP Oxygen Flow Rate Fraction of Inspired Oxygen 09/23/22 18:00 09/23/22 20:38 09/23/22 20:00 Temperature 37.1 C Pulse Rate 107 H 113 H 110 H Respiratory Rate 24 H Blood Pressure 121/88 Pulse Oximetry 93 Oxygen Delivery Oxygen Flow Rate
--- NOTE | 2022-09-24 15:32 | PM.IMPN ---
Progress Note: A&P Assessment and Plan (1) Acute exacerbation of chronic obstructive pulmonary disease: Code(s): J44.1 - Chronic obstructive pulmonary disease with (acute) exacerbation Status: Acute Assessment and Plan: Continue steroids, nebulizers, levaquin Appreciate pulmonology consultation Chest CT, Dopplers of lower extremity ordered 09/24/2022 interval history: 82-year-old female presented with complaint of shortness of short of breath, patient is positive for RSV and seen by pulmonology suspect patient has exacerbation of COPD secondary to RSV, and patient is being treated steroid and bronchodilator her clinical symptoms are improving, patient is also being diuresed, survey crew chief place the patient on BiPAP at nighttime, continue to monitor (2) Acute and chronic respiratory failure with hypoxia: Code(s): J96.21 - Acute and chronic respiratory failure with hypoxia Status: Acute Assessment and Plan: Likely secondary to COPD exacerbation Patient does oxygen is but refuses to do so was on BIPAP in ER, then weaned to nc, now back on BIPAP overnight, cont to wean as tolerated (3) Obstructive sleep apnea on CPAP: Code(s): G47.33 - Obstructive sleep apnea (adult) (pediatric); Z99.89 - Dependence on other enabling machines and devices Status: Acute Assessment and Plan: CPAP while here (4) Moderate to severe aortic stenosis: Code(s): I35.0 - Nonrheumatic aortic (valve) stenosis Status: Acute Assessment and Plan: Stable, monitor (5) Atrial fibrillation: Code(s): I48.91 - Unspecified atrial fibrillation Status: Acute Assessment and Plan: Monitor telemetry, rate controlled (6) Chronic anticoagulation: Code(s): Z79.01 - [employer] (current) use of anticoagulants Status: Acute Assessment and Plan: Continue pradaxa (7) Hypertension: Code(s): I10 - Essential (primary) hypertension Status: Acute Assessment and Plan: Stable monitor, continue home meds Plan DVT prophylaxis with pradaxa GI prophylaxis with PPI Code status full code Subjective Date/time seen: 09/24/22 15:32 09/24/2022 interval history: 82-year-old female presented with complaint of shortness of short of breath, patient is positive for RSV and seen by pulmonology suspect patient has exacerbation of COPD secondary to RSV, and patient is being treated steroid and bronchodilator her clinical symptoms are improving, patient is also being diuresed, survey crew chief place the patient on BiPAP at nighttime, continue to monitor Review of Systems Review of Systems: All systems reviewed & are unremarkable except as noted in HPI and below (the history and physical exam.) Exam Narrative: Patient is comfortable, NAD HEENT: eyes are clear and none icteric LUNGS: normal respiratory effort ABD: not distended Lower extremities: no edema SKIN: nonjaundiced Neuro: grossly intact. Objective Data Vital Signs Vital Signs: Vital Signs - 24 hr 09/23/22 15:57 09/23/22 16:00 09/23/22 17:10 Temperature 97.2 F L Pulse Rate 98 58 L 106 H Respiratory Rate 25 H 21 H Blood Pressure 112/70 Pulse Oximetry 96 95 Oxygen Delivery CPAP Oxygen Flow Rate Fraction of Inspired Oxygen 35 09/23/22 17:15 09/23/22 16:00 09/23/22 18:00 Temperature Pulse Rate 106 H 106 H 107 H Respiratory Rate 21 H Blood Pressure Pulse Oximetry 96 Oxygen Delivery BiPAP Oxygen Flow Rate Fraction of Inspired Oxygen 09/23/22 20:38 09/23/22 20:00 09/23/22 21:35 Temperature 98.8 F Pulse Rate 113 H 110 H 99 Respiratory Rate 24 H 20 Blood Pressure 121/88 Pulse Oximetry 93 95 Oxygen Delivery BiPAP Oxygen Flow Rate Fraction of Inspired Oxygen 09/23/22 21:36 09/23/22 20:00 09/23/22 20:00 Temperature Pulse Rate 99 110 H 110 H Respiratory Rate 20 Blood Pressure Pulse Oximetry 95 Oxygen Delivery BiPAP Oxy
[2022-09-25] VITALS (19 sets, daily range): BP systolic 94–142; BP diastolic 52–95; PULSE 74–124; RESP 20–27; TEMP 36–37; O2SAT 94–98
[2022-09-25] MEDS: SALINE LOCK FLUSH 10 ML IV PUSH ×3 (05:02→22:00)
[2022-09-25 05:36] LABS: Basophils Absolute Auto 0.1 K/mm3 (0.0-0.1); Basophils Percent Auto 0.8 % (0.2-1.2); Eosinophils Absolute Auto 0.1 K/mm3 (0-0.3); Eosinophils Percent Auto 0.8 % (0-4.4); Hematocrit 50.2 % (37.0-47.0); Hemoglobin 16.2 g/dL (12.0-15.0); Immature Granulocyte Percent A 2.2 % (0-0.5); Lymphocytes Absolute Auto 1.86 K/mm3 (0.9-3.2); Lymphocytes Percent Auto 20.7 % (18.3-44.2); Mean Corpuscular HGB Conc 32.3 g/dl (32-36); Mean Corpuscular Hemoglobin 32.8 pg (26-34); Mean Corpuscular Volume 101.6 fl (80-100); Mean Platelet Volume 10.2 fl (7.4-10.4); Monocytes Percent Auto 11.3 % (2.6-8.5); Neutrophils Absolute Auto 5.8 K/mm3 (1.3-6.7); Neutrophils Percent Auto 64.2 % (45.5-73.1); Platelet Count Result 214 k/mm3 (150-375); Red Blood Count 4.94 M/mm3 (4.2-5.4); Red Cell Distribution Width 14.6 % (11.5-14.5)
[2022-09-25 05:48] LABS: Alanine Aminotransferase 12 U/L (6-35); Albumin Level 3.3 g/dL (3.5-5.1); Alkaline Phosphatase 66 U/L (38-126); Anion Gap 3 mmol/L (8-16); Aspartate Amino Transferase 19 U/L (14-36); Bilirubin,Total 0.5 mg/dL (0.2-1.3); Blood Urea Nitrogen 41 mg/dL (7-17); Calcium 8.8 mg/dL (8.4-10.2); Carbon Dioxide 34 mmol/L (22-30); Chloride 100 mmol/L (98-107); Estimated CRCL calculation 32 ml/min; Estimated Glomerular Filt Rate 39; Glucose 100 mg/dL (65-110); Potassium 3.9 mmol/L (3.4-5.0); Sodium 137 mmol/L (137-145)
[2022-09-25] MEDS: UMECLIDINIUM/VILANTEROL 62.5-25 MCG ELLIPTA 1 PUFF INHALATION (09:11)
[2022-09-25] MEDS: DABIGATRAN ETEXILATE 75 MG CAPSULE PO ×2 (10:50→20:51)
[2022-09-25] MEDS: allopurinoL 300 MG TABLET PO (10:51)
[2022-09-25] MEDS: POTASSIUM CHLORIDE 10 MEQ TABLET.ER PO (10:51)
[2022-09-25] MEDS: carvediloL 12.5 MG TABLET PO ×2 (10:51→20:51)
[2022-09-25] MEDS: predniSONE 20 MG TABLET 40 MG PO (10:51)
[2022-09-25] MEDS: lisinopriL 20 MG TABLET PO (10:51)
[2022-09-25] MEDS: sulfaSALAzine 500 MG TABLET 1000 MG PO ×2 (10:52→17:24)
[2022-09-25] MEDS: PANTOPRAZOLE SODIUM IV 40 MG VIAL IV PUSH (10:52)
[2022-09-25] MEDS: FUROSEMIDE INJ 40 MG/4 ML VIAL IV PUSH (10:52)
--- NOTE | 2022-09-25 13:39 | PM.PNPUL ---
Progress Note: A&P Assessment and Plan (1) Acute exacerbation of chronic obstructive pulmonary disease: Code(s): J44.1 - Chronic obstructive pulmonary disease with (acute) exacerbation Status: Acute Assessment and Plan: 09/24/2022 82-year-old female with history of COPD, obstructive sleep apnea on CPAP at night presented with a few day history of increasing shortness of breath.? Chest CT imaging showed a tiny infiltrate left lower lobe which could be due to lower respiratory tract infection. ? On repeat testing she had a positive test for RSV. The patient has been on antibiotic, steroids nebulized short-acting bronchodilators for COPD exacerbation.? On physical exam she has just distant breath sounds and no wheezing.? ? Respiratory status has improved over the last 48 hours,? the patient now using BiPAP ? primarily at night. ? chest x-ray essentially unchanged as is the respiratory exam. Plan:? ? Continue with current regimen for COPD exacerbation? related to RSV infection. ? Continue with nebulized short-acting bronchodilators,supplemental oxygen,? and BiPAP support at night and p.r.n. during the day.? out of bed to chair.? WBC back in the normal range.? In light of possible right lower lobe infiltrate? on today's chest x-ray, continue with levofloxacin IV for now while monitoring for nosocomial pneumonia. 09/25 The patient states she is breathing 50% back to her baseline. She still has dyspnea on exertion but no cough. She does complain of weakness. She has been decreased from 5 L to 4 L nasal cannula her saturations are 95%. No wheezes on exam. Patient was started on IV Solu-Medrol on 09/20/2022, today is day 6 of steroids and she has no wheezes on exam. I will discontinue prednisone today. I will continue Anoro Ellipta at 1 puff q.day. Albuterol nebulizer Q 4 p.r.n. ordered. levofloxacin started on 09/20/2022 and today is day 6, I will continue. Of note the patient was also noted to have severe aortic stenosis on her echocardiogram on 09/22/2022 with grade 3 diastolic dysfunction, moderately increased left atrium, mildly increased right ventricle with decreased function in a mildly increased right atrium with a PASP of 48. Since 05/01/2022 the valve area has decreased from 1.2 centimeters squared to 0.73 centimeters squared with no change in the peak velocity or mean gradient of 17. Her PASP was 52 at that time. Discussed with Dr. Denise. Will follow with you. (2) Obstructive sleep apnea on CPAP: Code(s): G47.33 - Obstructive sleep apnea (adult) (pediatric); Z99.89 - Dependence on other enabling machines and devices Status: Acute Assessment and Plan: The patient is maintained on CPAP 9 at home. I have a download from 02/08/2022 through 05/08/2022 with her compliance a greater than 4 hours at 99%, AHI is 1.1 and her median leak is 3.5. I interpret this download as adequate pressures, excellent compliance and low leak. Tonight I will discontinue her BiPAP as she says that she feels like she is back to her baseline and can tolerate just straight CPAP. I will order CPAP 9 with 3 L bleed. I will attempt to obtain a more recent download from her [employer] Subjective Date/time seen: 09/25/22 13:39 Interval history: 09/24/22? 12:03? Patient used BiPAP last night.? Currently on supplemental oxygen.? She has no respiratory symptoms.? Complains of some weakness but less than before.? No new respiratory symptoms.? She continues to have a dry mouth requesting water. 09/25 the patient states she is breathing 50% back to her baseline. She still has dyspnea on exertion but no cough. She does complain of weakness. She has been decreased from 5 L to 4 L nasal cannula her saturations are 95%. No wheezes on exam. Review of Systems Constitutional: Constitutional: Reports no additional constitutional complaints Eyes: Eyes: Reports no additional eye complaints ENT: Reports system review
--- NOTE | 2022-09-25 16:31 | PM.IMPN ---
Progress Note: A&P Assessment and Plan (1) Acute exacerbation of chronic obstructive pulmonary disease: Code(s): J44.1 - Chronic obstructive pulmonary disease with (acute) exacerbation Status: Acute Assessment and Plan: Continue steroids, nebulizers, levaquin Appreciate pulmonology consultation Chest CT, Dopplers of lower extremity ordered 09/25/2022 interval history: 82-year-old female presented with complaint of shortness of short of breath, patient is positive for RSV and seen by pulmonology suspect patient has exacerbation of COPD secondary to RSV, and patient is being treated steroid and bronchodilator her clinical symptoms are not improving, today discussed with stem threshing machine operator will DC prednisone continue inhaled steroid, patient is also being diuresed, stem threshing machine operator placed the patient on BiPAP at nighttime, continue to monitor. (2) Acute and chronic respiratory failure with hypoxia: Code(s): J96.21 - Acute and chronic respiratory failure with hypoxia Status: Acute Assessment and Plan: Likely secondary to COPD exacerbation Patient does oxygen is but refuses to do so was on BIPAP in ER, then weaned to nc, now back on BIPAP overnight, cont to wean as tolerated (3) Obstructive sleep apnea on CPAP: Code(s): G47.33 - Obstructive sleep apnea (adult) (pediatric); Z99.89 - Dependence on other enabling machines and devices Status: Acute Assessment and Plan: CPAP while here (4) Moderate to severe aortic stenosis: Code(s): I35.0 - Nonrheumatic aortic (valve) stenosis Status: Acute Assessment and Plan: Stable, monitor (5) Atrial fibrillation: Code(s): I48.91 - Unspecified atrial fibrillation Status: Acute Assessment and Plan: Monitor telemetry, rate controlled (6) Chronic anticoagulation: Code(s): Z79.01 - half-way (current) use of anticoagulants Status: Acute Assessment and Plan: Continue pradaxa (7) Hypertension: Code(s): I10 - Essential (primary) hypertension Status: Acute Assessment and Plan: Stable monitor, continue home meds Plan DVT prophylaxis with pradaxa GI prophylaxis with PPI Code status full code Subjective Date/time seen: 09/25/22 16:31 09/25/2022 interval history: 82-year-old female presented with complaint of shortness of short of breath, patient is positive for RSV and seen by pulmonology suspect patient has exacerbation of COPD secondary to RSV, and patient is being treated steroid and bronchodilator her clinical symptoms are not improving, today discussed with stem threshing machine operator will DC prednisone continue inhaled steroid, patient is also being diuresed, stem threshing machine operator placed the patient on BiPAP at nighttime, continue to monitor. Review of Systems Review of Systems: All systems reviewed & are unremarkable except as noted in HPI and below (the history and physical exam.) Exam Narrative: Patient is comfortable, NAD HEENT: eyes are clear and none icteric LUNGS: normal respiratory effort ABD: not distended Lower extremities: no edema SKIN: nonjaundiced Neuro: grossly intact. Objective Data Vital Signs Vital Signs: Vital Signs - 24 hr 09/24/22 18:00 09/24/22 20:00 09/24/22 21:27 Temperature 98.2 F Pulse Rate 98 111 H 101 H Respiratory Rate 20 Blood Pressure 137/85 Pulse Oximetry 98 Oxygen Delivery Oxygen Flow Rate Fraction of Inspired Oxygen 09/24/22 20:00 09/24/22 20:00 09/24/22 22:08 Temperature Pulse Rate 109 H 109 H 96 Respiratory Rate 20 18 Blood Pressure Pulse Oximetry 98 Oxygen Delivery High Flow Nasal Cannula Oxygen Flow Rate 6 Fraction of Inspired Oxygen 35 09/24/22 22:00 09/24/22 23:47 09/25/22 00:00 Temperature 97.6 F Pulse Rate 93 93 88 Respiratory Rate 22 H Blood Pressure 141/73 H Pulse Oximetry 98 Oxygen Delivery Oxygen Flow Rate Fraction of Inspired Oxygen 09/25/22
[2022-09-26] VITALS (9 sets, daily range): BP systolic 94–120; BP diastolic 60–78; PULSE 77–104; RESP 18–22; TEMP 36.1–36.4; O2SAT 96–100
[2022-09-26 05:22] LABS: Alanine Aminotransferase 12 U/L (6-35); Albumin Level 3.3 g/dL (3.5-5.1); Alkaline Phosphatase 64 U/L (38-126); Anion Gap 5 mmol/L (8-16); Aspartate Amino Transferase 17 U/L (14-36); Bilirubin,Total 0.4 mg/dL (0.2-1.3); Blood Urea Nitrogen 45 mg/dL (7-17); Calcium 8.7 mg/dL (8.4-10.2); Carbon Dioxide 32 mmol/L (22-30); Chloride 103 mmol/L (98-107); Estimated CRCL calculation 34 ml/min; Estimated Glomerular Filt Rate 43; Glucose 99 mg/dL (65-110); Potassium 4.1 mmol/L (3.4-5.0); Sodium 140 mmol/L (137-145)
[2022-09-26 05:28] LABS: Basophils Absolute Auto 0.1 K/mm3 (0.0-0.1); Basophils Percent Auto 0.5 % (0.2-1.2); Eosinophils Absolute Auto 0.1 K/mm3 (0-0.3); Eosinophils Percent Auto 0.5 % (0-4.4); Hematocrit 47.6 % (37.0-47.0); Hemoglobin 15.7 g/dL (12.0-15.0); Immature Granulocyte Absolute 0.18 K/mm3 (0.00-0.031); Immature Granulocyte Percent A 1.7 % (0-0.5); Lymphocytes Percent Auto 15.9 % (18.3-44.2); Mean Corpuscular Hemoglobin 32.3 pg (26-34); Mean Corpuscular Volume 97.9 fl (80-100); Mean Platelet Volume 10.3 fl (7.4-10.4); Monocytes Absolute Auto 1.1 K/mm3 (0.1-0.6); Monocytes Percent Auto 10.1 % (2.6-8.5); Neutrophils Absolute Auto 7.6 K/mm3 (1.3-6.7); Neutrophils Percent Auto 71.3 % (45.5-73.1); Platelet Count Result 212 k/mm3 (150-375); Red Blood Count 4.86 M/mm3 (4.2-5.4); Red Cell Distribution Width 14.5 % (11.5-14.5); White Blood Count 10.7 K/mm3 (4.5-10.0)
[2022-09-26] MEDS: SALINE LOCK FLUSH 10 ML IV PUSH ×3 (06:17→20:50)
[2022-09-26] MEDS: lisinopriL 20 MG TABLET PO (10:59)
[2022-09-26] MEDS: PANTOPRAZOLE SODIUM IV 40 MG VIAL IV PUSH (10:59)
[2022-09-26] MEDS: FUROSEMIDE INJ 40 MG/4 ML VIAL IV PUSH (10:59)
[2022-09-26] MEDS: sulfaSALAzine 500 MG TABLET 1000 MG PO ×3 (11:00→17:37)
[2022-09-26] MEDS: DABIGATRAN ETEXILATE 75 MG CAPSULE PO ×2 (11:00→20:50)
[2022-09-26] MEDS: ALPRAZolam (*CRX) 0.25 MG TABLET PO (11:01)
[2022-09-26] MEDS: carvediloL 12.5 MG TABLET PO ×2 (11:01→20:50)
[2022-09-26] MEDS: allopurinoL 300 MG TABLET PO (11:01)
[2022-09-26] MEDS: POTASSIUM CHLORIDE 10 MEQ TABLET.ER PO (11:02)
--- NOTE | 2022-09-26 11:29 | PM.PNPUL ---
Progress Note: A&P Assessment and Plan (1) Acute exacerbation of chronic obstructive pulmonary disease: Code(s): J44.1 - Chronic obstructive pulmonary disease with (acute) exacerbation Status: Acute Assessment and Plan: 09/24/2022 82-year-old female with history of COPD, obstructive sleep apnea on CPAP at night presented with a few day history of increasing shortness of breath.? Chest CT imaging showed a tiny infiltrate left lower lobe which could be due to lower respiratory tract infection. ? On repeat testing she had a positive test for RSV. The patient has been on antibiotic, steroids nebulized short-acting bronchodilators for COPD exacerbation.? On physical exam she has just distant breath sounds and no wheezing.? ? Respiratory status has improved over the last 48 hours,? the patient now using BiPAP ? primarily at night. ? chest x-ray essentially unchanged as is the respiratory exam. Plan:? ? Continue with current regimen for COPD exacerbation? related to RSV infection. ? Continue with nebulized short-acting bronchodilators,supplemental oxygen,? and BiPAP support at night and p.r.n. during the day.? out of bed to chair.? WBC back in the normal range.? In light of possible right lower lobe infiltrate? on today's chest x-ray, continue with levofloxacin IV for now while monitoring for nosocomial pneumonia. 09/25 The patient states she is breathing 50% back to her baseline. She still has dyspnea on exertion but no cough. She does complain of weakness. She has been decreased from 5 L to 4 L nasal cannula her saturations are 95%. No wheezes on exam. Patient was started on IV Solu-Medrol on 09/20/2022, today is day 6 of steroids and she has no wheezes on exam. I will discontinue prednisone today. I will continue Anoro Ellipta at 1 puff q.day. Albuterol nebulizer Q 4 p.r.n. ordered. levofloxacin started on 09/20/2022 and today is day 6, I will continue. Of note the patient was also noted to have severe aortic stenosis on her echocardiogram on 09/22/2022 with grade 3 diastolic dysfunction, moderately increased left atrium, mildly increased right ventricle with decreased function in a mildly increased right atrium with a PASP of 48. Since 05/01/2022 the valve area has decreased from 1.2 centimeters squared to 0.73 centimeters squared with no change in the peak velocity or mean gradient of 17. Her PASP was 52 at that time. 09/26 The patient states she is overall the same. She is very weak and debilitated. She states she has a minimal cough and minimal phlegm production. No wheezes on exam. Continue Anoro Ellipta at 1 puff q.day, she has finished 7 days of levofloxacin and I will discontinue. Will follow with you. (2) Obstructive sleep apnea on CPAP: Code(s): G47.33 - Obstructive sleep apnea (adult) (pediatric); Z99.89 - Dependence on other enabling machines and devices Status: Acute Assessment and Plan: The patient is maintained on CPAP 9 at home. I have a download from 02/08/2022 through 05/08/2022 with her compliance a greater than 4 hours at 99%, AHI is 1.1 and her median leak is 3.5. I interpret this download as adequate pressures, excellent compliance and low leak. Tonight I will discontinue her BiPAP as she says that she feels like she is back to her baseline and can tolerate just straight CPAP. I will order CPAP 9 with 3 L bleed. I will attempt to obtain a more recent download from her [employer]. 09/26 The patient tolerated auto Pap but she already has a CPAP 9 at home with a good download, see below. I obtained a download from [employer] from 06/27/2022 through 09/24/2022. The patient is on a CPAP 9. Her usage days at greater than 4 hours are 93%. Her average usage on days used is 13 hours and 8 minutes. Her AHI 0.8, her apnea index is 0.6, her hypopnea index is 0.2, her median leak is 2.7, 95th percentile leak is 61.9, maximum leak is 97.8. I interpret this download as excellent c
--- NOTE | 2022-09-26 11:32 | PCPTNOTE ---
Called Hospitalist about bedrest orders. Per hospitalist, bedrest orders can be removed. Will make RN aware.
--- NOTE | 2022-09-26 13:27 | PC.NURSE ---
This patient, Giselle Aranda, was transferred to [facility] on 09/26/22 at 1327. Personal belongings sent with patient. Report given to Orquidea POWELL. Appropriate documentation sent with patient.
--- NOTE | 2022-09-26 15:37 | PM.IMPN ---
Progress Note: A&P Assessment and Plan (1) Acute exacerbation of chronic obstructive pulmonary disease: Code(s): J44.1 - Chronic obstructive pulmonary disease with (acute) exacerbation Status: Acute Assessment and Plan: Continue steroids, nebulizers, levaquin Appreciate pulmonology consultation Chest CT, Dopplers of lower extremity ordered 09/26/2022 interval history: 82-year-old female presented with complaint of shortness of short of breath, patient is positive for RSV and seen by pulmonology suspect patient has exacerbation of COPD secondary to RSV, and patient is being treated steroid and bronchodilator her clinical symptoms discussed with Dr. Higinio jerez of COPD is her baseline DC prednisone continue inhaled steroid, physically patient is very weak and tired will have a PT OT evaluate the patient will benefit going to rehab, patient is also being diuresed, stogie packer placed the patient on BiPAP at nighttime, continue to monitor. (2) Acute and chronic respiratory failure with hypoxia: Code(s): J96.21 - Acute and chronic respiratory failure with hypoxia Status: Acute Assessment and Plan: Likely secondary to COPD exacerbation Patient does oxygen is but refuses to do so was on BIPAP in ER, then weaned to nc, now back on BIPAP overnight, cont to wean as tolerated (3) Obstructive sleep apnea on CPAP: Code(s): G47.33 - Obstructive sleep apnea (adult) (pediatric); Z99.89 - Dependence on other enabling machines and devices Status: Acute Assessment and Plan: CPAP while here (4) Moderate to severe aortic stenosis: Code(s): I35.0 - Nonrheumatic aortic (valve) stenosis Status: Acute Assessment and Plan: Stable, monitor (5) Atrial fibrillation: Code(s): I48.91 - Unspecified atrial fibrillation Status: Acute Assessment and Plan: Monitor telemetry, rate controlled (6) Chronic anticoagulation: Code(s): 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 Status: Acute Assessment and Plan: Continue pradaxa (7) Hypertension: Code(s): I10 - Essential (primary) hypertension Status: Acute Assessment and Plan: Stable monitor, continue home meds Plan DVT prophylaxis with pradaxa GI prophylaxis with PPI Code status full code Subjective Date/time seen: 09/26/22 15:37 09/26/2022 interval history: 82-year-old female presented with complaint of shortness of short of breath, patient is positive for RSV and seen by pulmonology suspect patient has exacerbation of COPD secondary to RSV, and patient is being treated steroid and bronchodilator her clinical symptoms discussed with Dr. Higinio jerez of COPD is her baseline DC prednisone continue inhaled steroid, physically patient is very weak and tired will have a PT OT evaluate the patient will benefit going to rehab, patient is also being diuresed, stogie packer placed the patient on BiPAP at nighttime, continue to monitor. Review of Systems Review of Systems: All systems reviewed & are unremarkable except as noted in HPI and below (the history and physical exam.) Exam Narrative: Patient is comfortable, NAD HEENT: eyes are clear and none icteric LUNGS: normal respiratory effort ABD: not distended Lower extremities: no edema SKIN: nonjaundiced Neuro: grossly intact. Objective Data Vital Signs Vital Signs: Vital Signs - 24 hr 09/25/22 16:00 09/25/22 16:00 09/25/22 16:00 Temperature 96.8 F L Pulse Rate 89 100 Respiratory Rate 24 H Blood Pressure 115/52 L Pulse Oximetry 95 96 Oxygen Delivery High Flow Nasal Cannula Oxygen Flow Rate 4 Fraction of Inspired Oxygen 09/25/22 18:00 09/25/22 20:00 09/25/22 20:51 Temperature 98.1 F Pulse Rate 104 H 99 112 H Respiratory Rate 20 Blood Pressure 135/87 Pulse Oximetry 94 Oxygen Delivery Oxygen Flow Rate Fraction of Inspired Oxygen 09/25/22 20:00 09/25/22 20
--- NOTE | 2022-09-26 17:23 | PC.NURSE ---
This patient, Giselle Aranda, was received from [id number] on 09/26/22 at 1330. Patient/family oriented to unit policies and routines
[2022-09-27] VITALS (9 sets, daily range): BP systolic 95–121; BP diastolic 62–97; PULSE 55–88; RESP 18–22; TEMP 35.9–36.6; O2SAT 93–96
[2022-09-27] MEDS: SALINE LOCK FLUSH 10 ML IV PUSH ×3 (05:26→21:15)
[2022-09-27 06:18] LABS: Basophils Absolute Auto 0.1 K/mm3 (0.0-0.1); Basophils Percent Auto 0.5 % (0.2-1.2); Eosinophils Absolute Auto 0.2 K/mm3 (0-0.3); Eosinophils Percent Auto 1.5 % (0-4.4); Hematocrit 48.6 % (37.0-47.0); Hemoglobin 15.6 g/dL (12.0-15.0); Immature Granulocyte Absolute 0.23 K/mm3 (0.00-0.031); Immature Granulocyte Percent A 2.1 % (0-0.5); Lymphocytes Absolute Auto 1.53 K/mm3 (0.9-3.2); Lymphocytes Percent Auto 14.2 % (18.3-44.2); Mean Corpuscular HGB Conc 32.1 g/dl (32-36); Mean Corpuscular Hemoglobin 32.9 pg (26-34); Mean Corpuscular Volume 102.5 fl (80-100); Monocytes Absolute Auto 1.2 K/mm3 (0.1-0.6); Monocytes Percent Auto 10.9 % (2.6-8.5); Neutrophils Absolute Auto 7.6 K/mm3 (1.3-6.7); Neutrophils Percent Auto 70.8 % (45.5-73.1); Platelet Count Result 196 k/mm3 (150-375); Red Blood Count 4.74 M/mm3 (4.2-5.4); Red Cell Distribution Width 14.7 % (11.5-14.5); White Blood Count 10.7 K/mm3 (4.5-10.0)
[2022-09-27 06:27] LABS: Alanine Aminotransferase 13 U/L (6-35); Albumin Level 3.1 g/dL (3.5-5.1); Alkaline Phosphatase 60 U/L (38-126); Anion Gap 2 mmol/L (8-16); Aspartate Amino Transferase 22 U/L (14-36); Bilirubin,Total 0.4 mg/dL (0.2-1.3); Blood Urea Nitrogen 43 mg/dL (7-17); Calcium 8.3 mg/dL (8.4-10.2); Carbon Dioxide 31 mmol/L (22-30); Chloride 105 mmol/L (98-107); Estimated CRCL calculation 37 ml/min; Estimated Glomerular Filt Rate 47; Glucose 101 mg/dL (65-110); Sodium 138 mmol/L (137-145)
--- NOTE | 2022-09-27 08:55 | PM.PNPUL ---
Progress Note: A&P Assessment and Plan (1) Acute exacerbation of chronic obstructive pulmonary disease: Code(s): J44.1 - Chronic obstructive pulmonary disease with (acute) exacerbation Status: Acute Assessment and Plan: 09/24/2022 82-year-old female with history of COPD, obstructive sleep apnea on CPAP at night presented with a few day history of increasing shortness of breath.? Chest CT imaging showed a tiny infiltrate left lower lobe which could be due to lower respiratory tract infection. ? On repeat testing she had a positive test for RSV. The patient has been on antibiotic, steroids nebulized short-acting bronchodilators for COPD exacerbation.? On physical exam she has just distant breath sounds and no wheezing.? ? Respiratory status has improved over the last 48 hours,? the patient now using BiPAP ? primarily at night. ? chest x-ray essentially unchanged as is the respiratory exam. Plan:? ? Continue with current regimen for COPD exacerbation? related to RSV infection. ? Continue with nebulized short-acting bronchodilators,supplemental oxygen,? and BiPAP support at night and p.r.n. during the day.? out of bed to chair.? WBC back in the normal range.? In light of possible right lower lobe infiltrate? on today's chest x-ray, continue with levofloxacin IV for now while monitoring for nosocomial pneumonia. 09/25 The patient states she is breathing 50% back to her baseline. She still has dyspnea on exertion but no cough. She does complain of weakness. She has been decreased from 5 L to 4 L nasal cannula her saturations are 95%. No wheezes on exam. Patient was started on IV Solu-Medrol on 09/20/2022, today is day 6 of steroids and she has no wheezes on exam. I will discontinue prednisone today. I will continue Anoro Ellipta at 1 puff q.day. Albuterol nebulizer Q 4 p.r.n. ordered. levofloxacin started on 09/20/2022 and today is day 6, I will continue. Of note the patient was also noted to have severe aortic stenosis on her echocardiogram on 09/22/2022 with grade 3 diastolic dysfunction, moderately increased left atrium, mildly increased right ventricle with decreased function in a mildly increased right atrium with a PASP of 48. Since 05/01/2022 the valve area has decreased from 1.2 centimeters squared to 0.73 centimeters squared with no change in the peak velocity or mean gradient of 17. Her PASP was 52 at that time. 09/26 The patient states she is overall the same. She is very weak and debilitated. She states she has a minimal cough and minimal phlegm production. No wheezes on exam. Continue Anoro Ellipta at 1 puff q.day, she has finished 7 days of levofloxacin and I will discontinue. 09/27 Patient continues to slowly improve. She states she is 60% back to her baseline. She has a small cough and produces little phlegm. Currently her saturations on 3 L nasal cannula 97%. The patient is ready for discharge from a pulmonary perspective on these pulmonary medications: Anoro ellipta 62.5/25 at 1 puff q.day Rescue albuterol 2 puffs q.4 hours p.r.n. shortness of breath or wheezing. Oxygen at rest and with ambulation per group home facility protocol. Currently the patient is on 3 L at rest with saturations 97%. When she naps or sleep CPAP 9 with 5 L bleed in. Follow-up in Pulmonary Clinic in 3-4 weeks. Patient was previously an established patient and I gave her our business card and informed our nursing scheduler. Discussed with Dr. Denise, will sign off, call with questions. (2) Obstructive sleep apnea on CPAP: Code(s): G47.33 - Obstructive sleep apnea (adult) (pediatric); Z99.89 - Dependence on other enabling machines and devices Status: Acute Assessment and Plan: The patient is maintained on CPAP 9 at home. I have a download from 02/08/2022 through 05/08/2022 with her compliance a greater than 4 hours at 99%, AHI is 1.1 and her median leak is 3.5. I interpret this download as adequate pressures,
[2022-09-27] MEDS: lisinopriL 20 MG TABLET PO (09:13)
[2022-09-27] MEDS: FUROSEMIDE INJ 40 MG/4 ML VIAL IV PUSH (09:13)
[2022-09-27] MEDS: sulfaSALAzine 500 MG TABLET 1000 MG PO ×3 (09:13→17:31)
[2022-09-27] MEDS: POTASSIUM CHLORIDE 10 MEQ TABLET.ER PO (09:13)
[2022-09-27] MEDS: PANTOPRAZOLE SODIUM IV 40 MG VIAL IV PUSH (09:13)
[2022-09-27] MEDS: DABIGATRAN ETEXILATE 75 MG CAPSULE PO ×2 (09:14→21:14)
[2022-09-27] MEDS: carvediloL 12.5 MG TABLET PO ×2 (09:14→21:14)
[2022-09-27] MEDS: allopurinoL 300 MG TABLET PO (09:14)
[2022-09-27] MEDS: ALBUTEROL SULFATE NEB 2.5 MG/3 ML INH INHALATION (09:54)
--- NOTE | 2022-09-27 13:35 | PM.IMPN ---
Progress Note: A&P Assessment and Plan (1) Acute exacerbation of chronic obstructive pulmonary disease: Code(s): J44.1 - Chronic obstructive pulmonary disease with (acute) exacerbation Status: Acute Assessment and Plan: Continue steroids, nebulizers, levaquin Appreciate pulmonology consultation Chest CT, Dopplers of lower extremity ordered 09/27/2022 interval history: 82-year-old female presented with complaint of shortness of short of breath, patient is positive for RSV and seen by pulmonology suspect patient has exacerbation of COPD secondary to RSV, and patient is being treated steroid and bronchodilator her clinical symptoms have improved, discussed with Dr. Higinio jerez of COPD she is her baseline, DC prednisone continue inhaled steroid, physically patient is very weak and tired will have a PT OT evaluate the patient will benefit going to rehab, patient is waiting for placement, patient is also being diuresed, motel front desk clerk placed the patient on BiPAP at nighttime, continue to monitor. (2) Acute and chronic respiratory failure with hypoxia: Code(s): J96.21 - Acute and chronic respiratory failure with hypoxia Status: Acute Assessment and Plan: Likely secondary to COPD exacerbation Patient does oxygen is but refuses to do so was on BIPAP in ER, then weaned to nc, now back on BIPAP overnight, cont to wean as tolerated (3) Obstructive sleep apnea on CPAP: Code(s): G47.33 - Obstructive sleep apnea (adult) (pediatric); Z99.89 - Dependence on other enabling machines and devices Status: Acute Assessment and Plan: CPAP while here (4) Moderate to severe aortic stenosis: Code(s): I35.0 - Nonrheumatic aortic (valve) stenosis Status: Acute Assessment and Plan: Stable, monitor (5) Atrial fibrillation: Code(s): I48.91 - Unspecified atrial fibrillation Status: Acute Assessment and Plan: Monitor telemetry, rate controlled (6) Chronic anticoagulation: Code(s): 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 Status: Acute Assessment and Plan: Continue pradaxa (7) Hypertension: Code(s): I10 - Essential (primary) hypertension Status: Acute Assessment and Plan: Stable monitor, continue home meds Plan DVT prophylaxis with pradaxa GI prophylaxis with PPI Code status full code Subjective Date/time seen: 09/27/22 13:35 09/27/2022 interval history: 82-year-old female presented with complaint of shortness of short of breath, patient is positive for RSV and seen by pulmonology suspect patient has exacerbation of COPD secondary to RSV, and patient is being treated steroid and bronchodilator her clinical symptoms have improved, discussed with Dr. Higinio jerez of COPD she is her baseline, DC prednisone continue inhaled steroid, physically patient is very weak and tired will have a PT OT evaluate the patient will benefit going to rehab, patient is waiting for placement, patient is also being diuresed, motel front desk clerk placed the patient on BiPAP at nighttime, continue to monitor. Review of Systems Review of Systems: All systems reviewed & are unremarkable except as noted in HPI and below (the history and physical exam.) Exam Narrative: Patient is comfortable, NAD HEENT: eyes are clear and none icteric LUNGS: normal respiratory effort ABD: not distended Lower extremities: no edema SKIN: nonjaundiced Neuro: grossly intact. Objective Data Vital Signs Vital Signs: Vital Signs - 24 hr 09/26/22 14:12 09/26/22 20:00 09/27/22 00:00 Temperature 96.9 F L 97.5 F L Pulse Rate 86 86 67 Respiratory Rate 18 18 22 H Blood Pressure 94/60 L 121/97 H Pulse Oximetry 97 97 95 Oxygen Delivery Nasal Cannula Oxygen Flow Rate 4 Fraction of Inspired Oxygen 35 09/27/22 05:23 09/27/22 09:14 09/27/22 10:10 Temperature 96.7 F L Pulse Rate 74 76 Respiratory Rate 22 H Blood Pressure 95/75 L Pulse
[2022-09-28 04:43] VITALS: PULSE 80; RESP 18; O2SAT 95
[2022-09-28 07:06] LABS: Basophils Absolute Auto 0.1 K/mm3 (0.0-0.1); Basophils Percent Auto 0.5 % (0.2-1.2); Eosinophils Absolute Auto 0.2 K/mm3 (0-0.3); Eosinophils Percent Auto 1.5 % (0-4.4); Hemoglobin 14.8 g/dL (12.0-15.0); Immature Granulocyte Percent A 1.7 % (0-0.5); Lymphocytes Absolute Auto 1.42 K/mm3 (0.9-3.2); Lymphocytes Percent Auto 12.4 % (18.3-44.2); Mean Corpuscular HGB Conc 31.5 g/dl (32-36); Mean Corpuscular Hemoglobin 31.8 pg (26-34); Mean Corpuscular Volume 101.1 fl (80-100); Mean Platelet Volume 10.4 fl (7.4-10.4); Monocytes Absolute Auto 1.3 K/mm3 (0.1-0.6); Monocytes Percent Auto 11.7 % (2.6-8.5); Neutrophils Absolute Auto 8.3 K/mm3 (1.3-6.7); Neutrophils Percent Auto 72.2 % (45.5-73.1); Platelet Count Result 180 k/mm3 (150-375); Red Blood Count 4.65 M/mm3 (4.2-5.4); Red Cell Distribution Width 14.6 % (11.5-14.5); White Blood Count 11.5 K/mm3 (4.5-10.0)
[2022-09-28 07:20] LABS: Alanine Aminotransferase 13 U/L (6-35); Albumin Level 3.2 g/dL (3.5-5.1); Alkaline Phosphatase 62 U/L (38-126); Anion Gap 3 mmol/L (8-16); Aspartate Amino Transferase 23 U/L (14-36); Bilirubin,Total 0.6 mg/dL (0.2-1.3); Blood Urea Nitrogen 39 mg/dL (7-17); Calcium 8.3 mg/dL (8.4-10.2); Carbon Dioxide 34 mmol/L (22-30); Chloride 103 mmol/L (98-107); Estimated CRCL calculation 34 ml/min; Estimated Glomerular Filt Rate 43; Glucose 100 mg/dL (65-110); Potassium 3.9 mmol/L (3.4-5.0); Sodium 140 mmol/L (137-145)
[2022-09-28 08:00] VITALS: O2SAT 95
[2022-09-28] MEDS: DABIGATRAN ETEXILATE 75 MG CAPSULE PO (09:42)
[2022-09-28] MEDS: FUROSEMIDE INJ 40 MG/4 ML VIAL IV PUSH (09:42)
[2022-09-28] MEDS: allopurinoL 300 MG TABLET PO (09:43)
[2022-09-28] MEDS: POTASSIUM CHLORIDE 10 MEQ TABLET.ER PO (09:43)
[2022-09-28] MEDS: lisinopriL 20 MG TABLET PO (09:43)
[2022-09-28] MEDS: carvediloL 12.5 MG TABLET PO (09:43)
[2022-09-28] MEDS: sulfaSALAzine 500 MG TABLET 1000 MG PO (09:44)
[2022-09-28] MEDS: PANTOPRAZOLE SODIUM IV 40 MG VIAL IV PUSH (09:44)
--- NOTE | 2022-09-28 10:07 | PM.DS ---
DS: Admitting Diagnosis Discharge Date 09/28/2022 Admitting Diagnosis Shortness of breath DS: Discharge Diagnosis Discharge Diagnosis (1) Acute exacerbation of chronic obstructive pulmonary disease: Code(s): J44.1 - Chronic obstructive pulmonary disease with (acute) exacerbation Status: Acute Assessment and Plan: Continue steroids, nebulizers, levaquin Appreciate pulmonology consultation Chest CT, Dopplers of lower extremity ordered 09/27/2022 interval history: 82-year-old female presented with complaint of shortness of short of breath, patient is positive for RSV and seen by pulmonology suspect patient has exacerbation of COPD secondary to RSV, and patient is being treated steroid and bronchodilator her clinical symptoms have improved, discussed with Dr. Higinio jerez of COPD she is her baseline, DC prednisone continue inhaled steroid, physically patient is very weak and tired will have a PT OT evaluate the patient will benefit going to rehab, patient is waiting for placement, patient is also being diuresed, russian rubber placed the patient on BiPAP at nighttime, continue to monitor. (2) Acute and chronic respiratory failure with hypoxia: Code(s): J96.21 - Acute and chronic respiratory failure with hypoxia Status: Acute Assessment and Plan: Likely secondary to COPD exacerbation Patient does oxygen is but refuses to do so was on BIPAP in ER, then weaned to nc, now back on BIPAP overnight, cont to wean as tolerated (3) Obstructive sleep apnea on CPAP: Code(s): G47.33 - Obstructive sleep apnea (adult) (pediatric); Z99.89 - Dependence on other enabling machines and devices Status: Acute Assessment and Plan: CPAP while here (4) Moderate to severe aortic stenosis: Code(s): I35.0 - Nonrheumatic aortic (valve) stenosis Status: Acute Assessment and Plan: Stable, monitor (5) Atrial fibrillation: Code(s): I48.91 - Unspecified atrial fibrillation Status: Acute Assessment and Plan: Monitor telemetry, rate controlled (6) Chronic anticoagulation: Code(s): Z79.01 - retirement (current) use of anticoagulants Status: Acute Assessment and Plan: Continue pradaxa (7) Hypertension: Code(s): I10 - Essential (primary) hypertension Status: Acute Assessment and Plan: Stable monitor, continue home meds Plan DVT prophylaxis with pradaxa GI prophylaxis with PPI Code status full code DS: Summary Hospital Course Reason for hospitalization: Shortness of breath. Narrative: This is a pleasant 82-year-old female with atrial fibrillation, hypertension, congestive heart failure with reduced ejection fraction, aortic stenosis, sleep apnea, paroxysmal atrial fibrillation, and COPD who presented to the ED for evaluation of shortness of breath. Over the last couple of days she has developed a cough which is productive of clear phlegm in addition to progressive dyspnea on lesser and lesser exertion. She has also had some loose stools in the morning which clears up as the day goes on. Her shortness of breath got much worse just after midnight and she has been trying to use her CPAP at home without much help. She denies sick contacts and she has not had fever, chills, sweats, sinus congestion, sore throat, chest pain, pleuritic pain, palpitations, nausea, or vomiting. EMS gave her Solu-Medrol and an updraft on the way to the hospital and she was placed on 5 liters nasal cannula. ABG on arrival was really unremarkable and she was put on BiPAP in the ER for her work of breathing. Chest x-ray showed mild atelectasis at the left lung base and she tested negative for influenza and COVID. At the time my evaluation she is feeling a lot better and has been able to come off the BiPAP to eat without a whole lot of issue. She has no current complaints. Hospital Course: 82-year-old female presented with complaint of shortness of short of breath,? p
[2022-09-28] MEDS: UMECLIDINIUM/VILANTEROL 62.5-25 MCG ELLIPTA 1 PUFF INHALATION (10:30)
[2022-09-28 10:33] VITALS: O2SAT 93
[2022-09-28 11:40] LABS: EDCOVIDSCREEN Negative (Negative)
== END 2022-09-28 13:37 | DRG 193 ==
LOC: ANHED 12:01 → ANHIMU 14:27 → ANH3MEDSUR 09-26 13:27
PROVIDERS: Internal Medicine Pulmonary Disease; Physician Assistant; Preventive Medicine Aerospace Medicine; Student in an Organized Health Care Education/Training Program; Admitting Provider Family Medicine; Emergency Provider Emergency Medicine; PCP Internal Medicine; Visit Provider Family Medicine
DX: J12.1 Respiratory syncytial virus pneumonia (principal); J96.21 Acute and chronic respiratory failure with hypoxia; I50.32 Chronic diastolic (congestive) heart failure; J43.9 Emphysema, unspecified; G47.33 Obstructive sleep apnea (adult) (pediatric); I35.0 Nonrheumatic aortic (valve) stenosis; I27.20 Pulmonary hypertension, unspecified; I11.0 Hypertensive heart disease with heart failure; I48.0 Paroxysmal atrial fibrillation; M10.9 Gout, unspecified; Z79.01 Long term (current) use of anticoagulants; Z91.14 Patient's other noncompliance with medication regimen; Z99.89 Dependence on other enabling machines and devices; Z20.822 Contact with and (suspected) exposure to COVID-19; Z88.0 Allergy status to penicillin; Z87.891 Personal history of nicotine dependence; Z85.828 Personal history of other malignant neoplasm of skin
CPT/HCPCS: 36415; 36569; 36600; 71045; 71250; 80048; 80053; 82375; 82805; 83050; 83880; 85025; 85027; 87081; 87426; 87502; 87634; 87636; 93005; 93970; 94002; 94003; 94640; 94660; 97110; 97161; 97166; 97530; 99285; A9270; C1751; C8929; C9113; C9803; J1940; J1956; J2405; J2930; J7042; J7512; Q9957

== ENCOUNTER 2022-10-14 14:02 | Inpatient (IN) | payer MEDICARE, SELFPAY ==
--- NOTE | ~2022-10-14 | XR_ITS ---
EXAMINATION: XR chest 1V portable INDICATION: Shortness of breath TECHNIQUE: Portable AP chest at 1404 hours COMPARISON: 10/14/2022 FINDINGS: Cardiomegaly is noted. There are minimal airspace opacities of the right mid and lower lung zones. No pleural effusion or pneumothorax. Again noted is internal fixation of three left ribs. IMPRESSION: 1. Minimal airspace opacities of the right mid and lower lung zones, consistent with atelectasis vers us pneumonia. Reviewed, dictated and finalized at location B. OMA PHARMACY TECHNICIAN IMPRESSION: 1. Minimal airspace opacities of the right mid and lower lung zones, consistent with atelectasis versus pneumonia.
--- NOTE | ~2022-10-14 | US_ITS ---
EXAMINATION: US venous doppler [facility] DATE: 10/19/2022 21:47 INDICATION: Lower limb pain. TECHNIQUE: Grayscale ultrasound images without and with compression and Doppler ultrasound images of the bilateral lower extremity veins were obtained. COMPARISON: Ultrasound 09/20/2022 FINDINGS: The visualized portions of right common femoral vein, profunda (deep) femoral vein, femoral vein, pop liteal vein, posterior tibial veins, and greater saphenous vein outflow are patent. The visualized portions of left common femoral vein, profunda femoral vein, femoral vein, popliteal v ein, posterior tibial veins, and greater saphenous vein outflow are patent. IMPRESSION: 1. No deep venous thrombosis. Reviewed, dictated and finalized at location A. HANDISE PICKUP/RECEIVING ASSOCIATE
--- NOTE | ~2022-10-14 | XR_ITS ---
EXAMINATION: XR chest 1V portable DATE: 10/14/2022 23:53 INDICATION: Shortness of breath and chest pain TECHNIQUE: frontal view of the chest was obtained. COMPARISON: Chest radiograph dated 10/10/2022 at 9:09 PM FINDINGS: Mild right apical pleural-parenchymal scarring. Cardiomegaly with pulmonary vascular congestion but w ithout robert pulmonary edema. No pleural effusion or pneumothorax. Internal fixation along the pecan grower olateral left seventh-ninth ribs. IMPRESSION: 1. Thyromegaly with pulmonary vascular congestion but without robert pulmonary edema. Reviewed, dictated and finalized at location A. R VEHICLES INSPECTOR IMPRESSION: 1. Thyromegaly with pulmonary vascular congestion but without robert pulmonary e kristel.
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
--- NOTE | ~2022-10-14 | CT_ITS ---
EXAMINATION:CT diagnostic chest wo con DATE: 10/19/2022 14:25 INDICATION: Pneumonia. TECHNIQUE: Computed tomography (CT) of the chest was performed without intravenous contrast. Automate d exposure control and iterative reconstruction technique were employed. The dose-length product (DLP ) was 257.22 mGy-cm. COMPARISON: Chest CT 09/20/2022 FINDINGS: There is mild emphysema. There is mild scarring at the lung apices. There is mild atelectas is in the lungs bilaterally. Again seen is a 4 mm nodule in left lower lobe, likely benign. No pleura l effusion. Cardiomegaly is noted. There are coronary artery calcifications. There are calcifications of the aortic valve. There is enlargement of the central pulmonary arteries, consistent with pulmona ry arterial hypertension. There is a small sliding hiatal hernia. There are gallstones in the gallbla dder, which is normal in size. There is thickening of left adrenal gland, likely benign. There is int ernal fixation of multiple left-sided ribs. There is severe thoracic and lumbar spondylosis. Thoracic levoscoliosis is noted. IMPRESSION: 1. Mild atelectasis in the lungs. Some small/mild component of pneumonia cannot be exclude. 2. Mild emphysema. 3. Small sliding hiatal hernia. 4. Cardiomegaly. Reviewed, dictated and finalized at location A. NE DENTIST
--- NOTE | 2022-10-14 14:03 | ECG_ITS ---
Measurements Intervals [place] Rate: 98 P: NV: 0 QRS: -5 QRSD: 93 T: 38 QT: 376 QTc: 480 Interpretive Statements ATRIAL FIBRILLATION WITH ABERRANT CONDUCTION OR VENTRICULAR PREMATURE COMPLEXES BASELINE ARTIFACT INCOMPLETE RIGHT BUNDLE BRANCH BLOCK ABNORMAL ECG COMPARED TO ECG 09/19/2022 06:49:56 ABERRANT CONDUCTION OF SUPRAVENTRICULAR BEAT(S) NOW PRESENT Electronically Signed On 10-16-2022 16:41:30 MILK DRIVER by Higinio Malhotra M.D.
[2022-10-14 14:05] VITALS: BP 94/64; PULSE 97; RESP 16; TEMP 36.3; O2SAT 97
[2022-10-14 14:29] LABS: Basophils Percent Auto 0.5 % (0.2-1.2); Eosinophils Absolute Auto 0.1 K/mm3 (0-0.3); Eosinophils Percent Auto 3.2 % (0-4.4); Hematocrit 42.2 % (37.0-47.0); Hemoglobin 13.3 g/dL (12.0-15.0); Immature Granulocyte Absolute 0.03 K/mm3 (0.00-0.031); Immature Granulocyte Percent A 0.8 % (0-0.5); Lymphocytes Absolute Auto 0.86 K/mm3 (0.9-3.2); Lymphocytes Percent Auto 23.2 % (18.3-44.2); Mean Corpuscular HGB Conc 31.5 g/dl (32-36); Mean Corpuscular Hemoglobin 31.8 pg (26-34); Mean Platelet Volume 9.4 fl (7.4-10.4); Monocytes Absolute Auto 0.5 K/mm3 (0.1-0.6); Monocytes Percent Auto 12.9 % (2.6-8.5); Neutrophils Absolute Auto 2.2 K/mm3 (1.3-6.7); Neutrophils Percent Auto 59.4 % (45.5-73.1); Platelet Count Result 204 k/mm3 (150-375); Red Blood Count 4.18 M/mm3 (4.2-5.4); Red Cell Distribution Width 14.2 % (11.5-14.5); White Blood Count 3.7 K/mm3 (4.5-10.0)
[2022-10-14 14:39] LABS: Alanine Aminotransferase 11 U/L (6-35); Albumin Level 3.6 g/dL (3.5-5.1); Alkaline Phosphatase 77 U/L (38-126); Anion Gap 5 mmol/L (8-16); Aspartate Amino Transferase 26 U/L (14-36); Bilirubin,Total 0.4 mg/dL (0.2-1.3); Blood Urea Nitrogen 16 mg/dL (7-17); Calcium 8.6 mg/dL (8.4-10.2); Carbon Dioxide 31 mmol/L (22-30); Chloride 96 mmol/L (98-107); Estimated CRCL calculation 50 ml/min; Estimated Glomerular Filt Rate > 60; Glucose 94 mg/dL (65-110); Lipase 33 U/L (23-300); Potassium 3.9 mmol/L (3.4-5.0); Sodium 132 mmol/L (137-145)
[2022-10-14 14:46] LABS: INR 1.1
[2022-10-14 14:50] LABS: Troponin I < 0.012 ng/mL (0.000-0.034)
[2022-10-14 17:37] VITALS: BP 104/48; PULSE 56; RESP 20; O2SAT 97
[2022-10-14 21:41] LABS: Troponin I < 0.012 ng/mL (0.000-0.034)
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
[2022-10-14] MEDS: ALBUTEROL SULFATE NEB 2.5 MG/3 ML INH 5 MG INHALATION (22:30)
[2022-10-14] MEDS: IPRATROPIUM BR 0.02% INH SOLN 0.5 MG/2.5 ML VIAL INHALATION (22:30)
[2022-10-14 22:33] VITALS: PULSE 103; PULSE 108; RESP 31; RESP 32; O2SAT 98
[2022-10-14 23:43] VITALS: PULSE 111; RESP 25; O2SAT 94
[2022-10-14 23:45] VITALS: PULSE 113; RESP 14; O2SAT 94
[2022-10-15] VITALS (14 sets, daily range): BP systolic 102–122; BP diastolic 58–77; PULSE 58–109; RESP 18–27; TEMP 36.2–36.6; O2SAT 95–99; BMI 29.1
[2022-10-15 00:09] LABS: Alveolar/Arterial O2 Gradient 88.8 mmHg; Fractional Inspired Oxygen 28 %; HCO3 ABG 25.2 mEq/l (22.0-26.0); Oxygen Content ABG 18.2 %vol (16.0-22.0); Oxygen Saturation ABG 93.5 % (95.0-100.0); PCO2 ABG 38.5 mmHg (35.0-45.0); PO2 ABG 65.4 mmHg (80.0-100.0); PO2 FiO2 Ratio Arterial Blood 2.34 %; Total Hemoglobin 14.2 g/dL (12.0-18.0); pH ABG 7.433 (7.350-7.450)
[2022-10-15 00:10] LABS: Device NASAL CANNULA; Modified Allen's Test Pass; Site Drawn LEFT RADIAL
[2022-10-15] MEDS: methylPREDNISolone SOD SUCC 125 MG VIAL IV PUSH (00:19)
[2022-10-15 01:17] LABS: Troponin I < 0.012 ng/mL (0.000-0.034)
[2022-10-15] MEDS: LOPERAMIDE HCL 2 MG CAPSULE PO (01:55)
--- NOTE | 2022-10-15 02:44 | PC.NURSE ---
0240 Updated pt William Mendez on admission, plan of care and room number.
--- NOTE | 2022-10-15 03:08 | ADMGEN ---
This patient, Giselle Aranda, was admitted to Medical Room 341-01. Patient/family oriented to hospital policies and general routines including ID bracelet, bed and alarms, visiting hours, pain management, procedures, bathroom and other care routines, personal items, smoking policy, room service/diet, and visiting hours. Information on how to activate the Rapid Response Team has been discussed. Patient/Family are encouraged to report perceived risks to care and to ask questions if they do not understand what they are told or what they should do.
[2022-10-15] MEDS: REMDESIVIR 200 MG/NS 250 ML 200 MG/250 ML BAG 250 MG IVPB (12:27)
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
[2022-10-15] MEDS: carvediloL 12.5 MG TABLET PO ×2 (16:26→20:43)
[2022-10-15] MEDS: SERTRALINE HCL 25 MG TABLET PO (18:12)
[2022-10-15] MEDS: DABIGATRAN ETEXILATE 75 MG CAPSULE PO (18:12)
[2022-10-15] MEDS: sulfaSALAzine 500 MG TABLET 1000 MG PO (18:12)
[2022-10-15] MEDS: ALPRAZolam (*CRX) 0.25 MG TABLET PO (20:43)
[2022-10-16] VITALS (7 sets, daily range): BP systolic 110–138; BP diastolic 45–81; PULSE 50–103; RESP 20–22; TEMP 36.4–37.4; O2SAT 91–95
[2022-10-16 06:39] LABS: Alanine Aminotransferase 13 U/L (6-35); Estimated CRCL calculation 41 ml/min; Estimated Glomerular Filt Rate 53
[2022-10-16] MEDS: PANTOPRAZOLE 40 MG TABLET PO (08:17)
[2022-10-16] MEDS: FUROSEMIDE 20 MG TABLET PO (08:17)
[2022-10-16] MEDS: SERTRALINE HCL 25 MG TABLET PO ×2 (08:17→17:31)
[2022-10-16] MEDS: lisinopriL 20 MG TABLET PO (08:18)
[2022-10-16] MEDS: carvediloL 12.5 MG TABLET PO ×2 (08:18→20:13)
[2022-10-16] MEDS: FUROSEMIDE 40 MG TABLET PO (08:19)
[2022-10-16] MEDS: POTASSIUM CHLORIDE 10 MEQ TABLET.ER PO (08:19)
[2022-10-16] MEDS: DABIGATRAN ETEXILATE 75 MG CAPSULE PO ×2 (08:19→17:31)
[2022-10-16] MEDS: sulfaSALAzine 500 MG TABLET 1000 MG PO ×3 (08:19→17:31)
[2022-10-16] MEDS: allopurinoL 300 MG TABLET PO (08:19)
[2022-10-16] MEDS: REMDESIVIR 100 MG/NS 250 ML 100 MG/250 ML BAG 250 MG IVPB (09:46)
[2022-10-16] MEDS: ONDANSETRON HCL ODT 4 MG TABLET PO (10:34)
[2022-10-16] MEDS: LOPERAMIDE HCL 2 MG CAPSULE PO (11:08)
--- NOTE | 2022-10-16 14:23 | PM.IMPN ---
Progress Note: A&P Assessment and Plan (1) COVID-19: Code(s): U07.1 - COVID-19 Status: Acute Assessment and Plan: ED-HPI narrative: Patient is an 82-year-old female with a history of COPD here for evaluation of chest pain earlier today.? Patient states that she had two episodes of sharp chest pain in the center of her chest that lasted for seconds at a time before resolving without intervention.? Never had a history of pain like this before.? Sat in waiting room for 8 hours without pain.? She is currently COVID-positive.? She was hospitalized several weeks ago for acute on chronic respiratory failure in the setting of RSV. 10/16/2022 interval history: Patient is an 82-year-old female chronic respiratory failure on home oxygen 2L [place], with history of COPD and was recently discharged after treated for exacerbation, patient presents to emergency department with complaint of chest pain 3 sets of cardiac enzymes are negative, currently patient chest pain is resolved, patient states 6 days ago see was found to have COVID-19, patient was started on dexamethasone from ER on 10/15 started the patient on remdesivir, today patient complains of nausea is chronic, will get the patient Zofran and Protonix, will continue to monitor and further recommendation to follow. patient currently in isolation. patient is admitted as observation status. 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 Patient states that she had two episodes of sharp chest pain in the center of her chest that lasted for seconds at a time before resolving without intervention.? Never had a history of pain like this before.? Sat in waiting room for 8 hours without pain.? She is currently COVID-positive.? She was hospitalized several weeks ago for acute on chronic respiratory failure in the setting of RSV. 10/16/2022 interval history: Patient is an 82-year-old female chronic respiratory failure on home oxygen 2L [place], with history of COPD and was recently discharged after treated for exacerbation, patient presents to emergency department with complaint of chest pain 3 sets of cardiac enzymes are negative, currently patient chest pain is resolved, patient states 6 days ago see was found to have COVID-19, patient was started on dexamethasone from ER on 10/15 started the patient on remdesivir, today patient complains of nausea is chronic, will get the patient Zofran and Protonix, will continue to monitor and further recommendation to follow. patient currently in isolation. Exam Narrative: elderly frail Patient is comfortable, NAD HEENT: eyes are clear and none icteric LUNGS: normal respiratory effort ABD: not distended Lower extremities: no edema SKIN: nonjaundiced Neuro: grossly intact. Objective Data Vital Signs Vital Signs: Vital Signs - 24 hr 10/15/22 16:26 10/15/22 20:41 10/15/22 20:43 Temperature 97.9 F Pulse Rate 58 L 79 78 Respiratory Rate 18 Blood Pressure 106/59 L Pulse Oximetry 99 10/16/22 05:31 10/16/22 08:18 Temperature 97.6 F Pulse Rate 89 89 Respiratory Rate 22 H Blood Pressure 124/81 Pulse Oximetry 94 Intake/Output Intake/Output: Intake & Output 10/13/22 10/14/22 10/15/22 10/16/22 23:59 23:59 23:59 23:59 Intake Total
[2022-10-16] MEDS: ALPRAZolam (*CRX) 0.25 MG TABLET PO (17:40)
[2022-10-16] MEDS: ALBUTEROL SULFATE NEB 2.5 MG/3 ML INH INHALATION (22:07)
[2022-10-17] VITALS (8 sets, daily range): BP systolic 108–132; BP diastolic 60–71; PULSE 80–101; RESP 18–26; TEMP 36.3–36.6; O2SAT 93–95
[2022-10-17 06:24] LABS: Hematocrit 43.4 % (37.0-47.0); Hemoglobin 13.9 g/dL (12.0-15.0); Mean Corpuscular Hemoglobin 32.1 pg (26-34); Mean Corpuscular Volume 100.2 fl (80-100); Mean Platelet Volume 9.9 fl (7.4-10.4); Platelet Count Result 207 k/mm3 (150-375); Red Blood Count 4.33 M/mm3 (4.2-5.4)
[2022-10-17 06:33] LABS: INR 1.2
[2022-10-17 06:50] LABS: Alanine Aminotransferase 12 U/L (6-35); Albumin Level 3.4 g/dL (3.5-5.1); Alkaline Phosphatase 75 U/L (38-126); Anion Gap 4 mmol/L (8-16); Aspartate Amino Transferase 21 U/L (14-36); Bilirubin,Total 0.3 mg/dL (0.2-1.3); Blood Urea Nitrogen 23 mg/dL (7-17); Calcium 8.4 mg/dL (8.4-10.2); Carbon Dioxide 33 mmol/L (22-30); Chloride 98 mmol/L (98-107); Estimated CRCL calculation 45 ml/min; Estimated Glomerular Filt Rate 60; Glucose 101 mg/dL (65-110); Potassium 3.3 mmol/L (3.4-5.0); Sodium 135 mmol/L (137-145)
[2022-10-17] MEDS: POTASSIUM CHLORIDE 10 MEQ TABLET.ER PO (09:03)
[2022-10-17] MEDS: PANTOPRAZOLE SODIUM IV 40 MG VIAL IV PUSH (09:03)
[2022-10-17] MEDS: ONDANSETRON HCL ODT 4 MG TABLET PO (09:03)
[2022-10-17] MEDS: FUROSEMIDE 20 MG TABLET PO (09:04)
[2022-10-17] MEDS: allopurinoL 300 MG TABLET PO (09:04)
[2022-10-17] MEDS: SERTRALINE HCL 25 MG TABLET PO ×2 (09:04→16:11)
[2022-10-17] MEDS: FUROSEMIDE 40 MG TABLET PO (09:04)
[2022-10-17] MEDS: lisinopriL 20 MG TABLET PO (09:04)
[2022-10-17] MEDS: sulfaSALAzine 500 MG TABLET 1000 MG PO ×3 (09:04→16:11)
[2022-10-17] MEDS: DABIGATRAN ETEXILATE 75 MG CAPSULE PO ×2 (09:04→16:11)
[2022-10-17] MEDS: POTASSIUM CHLORIDE 20 MEQ TABLET 40 MEQ PO (09:04)
[2022-10-17] MEDS: ALPRAZolam (*CRX) 0.25 MG TABLET PO ×2 (09:04→20:10)
[2022-10-17] MEDS: carvediloL 12.5 MG TABLET PO ×2 (09:06→20:10)
[2022-10-17] MEDS: REMDESIVIR 100 MG/NS 250 ML 100 MG/250 ML BAG 250 MG IVPB (10:21)
[2022-10-17] MEDS: LOPERAMIDE HCL 2 MG CAPSULE PO (16:16)
--- NOTE | 2022-10-17 16:27 | PM.IMPN ---
Progress Note: A&P Assessment and Plan (1) COVID-19: Code(s): U07.1 - COVID-19 Status: Acute Assessment and Plan: ED-HPI narrative: Patient is an 82-year-old female with a history of COPD here for evaluation of chest pain earlier today.? Patient states that she had two episodes of sharp chest pain in the center of her chest that lasted for seconds at a time before resolving without intervention.? Never had a history of pain like this before.? Sat in waiting room for 8 hours without pain.? She is currently COVID-positive.? She was hospitalized several weeks ago for acute on chronic respiratory failure in the setting of RSV. 10/17/2022 interval history: Patient is an 82-year-old female chronic respiratory failure on home oxygen 2L [place], with history of COPD and was recently discharged after treated for exacerbation, patient presents to emergency department with complaint of chest pain 3 sets of cardiac enzymes are negative, currently patient chest pain is resolved, patient states 7 days ago see was found to have COVID-19, patient was started on dexamethasone from ER on 10/15 started the patient on remdesivir, on 10/16 patient complained of nausea it is chronic, gave patient Zofran and Protonix, today nausea is little better, will continue to monitor and further recommendation to follow. patient currently in isolation. discussed with career education teacher will need insurance authorization to back to [place]. patient is admitted as observation status. (2) Hypertension: Code(s): I10 - Essential (primary) hypertension Status: Acute Assessment and Plan: will continue home regimen and monitor (3) Chronic anticoagulation: Code(s): Z79.01 - correction (current) use of anticoagulants Status: Acute Assessment and Plan: patient with history of atrial fibrillation anticoagulated Pradaxa (4) Atrial fibrillation: Code(s): I48.91 - Unspecified atrial fibrillation Status: Acute Assessment and Plan: rate is controlled with beta-veda anticoagulated with Pradaxa Subjective Date/time seen: 10/17/22 16:27 ED-HPI narrative: Patient is an 82-year-old female with a history of COPD here for evaluation of chest pain earlier today.? Patient states that she had two episodes of sharp chest pain in the center of her chest that lasted for seconds at a time before resolving without intervention.? Never had a history of pain like this before.? Sat in waiting room for 8 hours without pain.? She is currently COVID-positive.? She was hospitalized several weeks ago for acute on chronic respiratory failure in the setting of RSV. 10/17/2022 interval history: Patient is an 82-year-old female chronic respiratory failure on home oxygen 2L [place], with history of COPD and was recently discharged after treated for exacerbation, patient presents to emergency department with complaint of chest pain 3 sets of cardiac enzymes are negative, currently patient chest pain is resolved, patient states 7 days ago see was found to have COVID-19, patient was started on dexamethasone from ER on 10/15 started the patient on remdesivir, on 10/16 patient complained of nausea it is chronic, gave patient Zofran and Protonix, today nausea is little better, will continue to monitor and further recommendation to follow. patient currently in isolation. discussed with career education teacher will need insurance authorization to back to [place]. Exam Narrative: elderly frail Patient is comfortable, NAD HEENT: eyes are clear and none icteric LUNGS: normal respiratory effort ABD: not distended Lower extremities: no edema SKIN: nonjaundiced Neuro: grossly intact. Objective Data Vital Signs Vital Signs: Vital Signs - 24 hr 10/16/22 20:11 10/16/22 20:13 10/16/22 22:05 Temperature 97.9 F Pulse Rate 103 H 103 H 92 Respiratory Rate 20 20 Blood Pressure 138/60 Pulse Oximetry 92 91 Oxygen Delivery BiPAP Oxygen Flow Rate 10/16
[2022-10-18] VITALS (9 sets, daily range): BP systolic 110–112; BP diastolic 70–94; PULSE 66–99; RESP 18–24; TEMP 36.2–36.6; O2SAT 96
[2022-10-18 05:52] LABS: Hematocrit 42.8 % (37.0-47.0); Hemoglobin 13.3 g/dL (12.0-15.0); Mean Corpuscular HGB Conc 31.1 g/dl (32-36); Mean Corpuscular Hemoglobin 31.7 pg (26-34); Mean Corpuscular Volume 101.9 fl (80-100); Mean Platelet Volume 9.6 fl (7.4-10.4); Platelet Count Result 204 k/mm3 (150-375); Red Cell Distribution Width 14.2 % (11.5-14.5); White Blood Count 5.5 K/mm3 (4.5-10.0)
[2022-10-18 05:57] LABS: INR 1.3; Prothrombin Time 15.6 Seconds (11.1-14.7)
[2022-10-18 06:01] LABS: Alanine Aminotransferase 10 U/L (6-35); Albumin Level 3.2 g/dL (3.5-5.1); Alkaline Phosphatase 78 U/L (38-126); Anion Gap 5 mmol/L (8-16); Aspartate Amino Transferase 18 U/L (14-36); Bilirubin,Total 0.3 mg/dL (0.2-1.3); Blood Urea Nitrogen 25 mg/dL (7-17); Calcium 8.4 mg/dL (8.4-10.2); Carbon Dioxide 32 mmol/L (22-30); Chloride 103 mmol/L (98-107); Estimated CRCL calculation 41 ml/min; Estimated Glomerular Filt Rate 53; Glucose 93 mg/dL (65-110); Potassium 3.8 mmol/L (3.4-5.0); Sodium 140 mmol/L (137-145)
[2022-10-18] MEDS: SERTRALINE HCL 25 MG TABLET PO ×2 (08:36→17:19)
[2022-10-18] MEDS: PANTOPRAZOLE SODIUM IV 40 MG VIAL IV PUSH (08:36)
[2022-10-18] MEDS: lisinopriL 20 MG TABLET PO (08:36)
[2022-10-18] MEDS: FUROSEMIDE 20 MG TABLET PO (08:36)
[2022-10-18] MEDS: sulfaSALAzine 500 MG TABLET 1000 MG PO ×3 (08:36→17:20)
[2022-10-18] MEDS: DABIGATRAN ETEXILATE 75 MG CAPSULE PO ×2 (08:36→17:19)
[2022-10-18] MEDS: allopurinoL 300 MG TABLET PO (08:36)
[2022-10-18] MEDS: FUROSEMIDE 40 MG TABLET PO (08:36)
[2022-10-18] MEDS: POTASSIUM CHLORIDE 10 MEQ TABLET.ER PO (08:37)
[2022-10-18] MEDS: carvediloL 12.5 MG TABLET PO ×2 (08:38→20:23)
[2022-10-18] MEDS: REMDESIVIR 100 MG/NS 250 ML 100 MG/250 ML BAG 250 MG IVPB (11:16)
[2022-10-18] MEDS: LOPERAMIDE HCL 2 MG CAPSULE PO (11:20)
[2022-10-18] MEDS: FUROSEMIDE INJ 40 MG/4 ML VIAL IV PUSH (14:51)
[2022-10-18] MEDS: levoFLOXacin 500 MG/D5W 100 ML 500 MG/100 ML BAG 100 MG IVPB (17:20)
--- NOTE | 2022-10-18 17:39 | PM.IMPN ---
Progress Note: A&P Assessment and Plan (1) COVID-19: Code(s): U07.1 - COVID-19 Status: Acute Assessment and Plan: ED-HPI narrative: Patient is an 82-year-old female with a history of COPD here for evaluation of chest pain earlier today.? Patient states that she had two episodes of sharp chest pain in the center of her chest that lasted for seconds at a time before resolving without intervention.? Never had a history of pain like this before.? Sat in waiting room for 8 hours without pain.? She is currently COVID-positive.? She was hospitalized several weeks ago for acute on chronic respiratory failure in the setting of RSV. 10/18/2022 interval history: Patient is an 82-year-old female chronic respiratory failure on home oxygen 2L [place], with history of COPD and was recently discharged after treated for exacerbation, patient presents to emergency department with complaint of chest pain 3 sets of cardiac enzymes are negative, currently patient chest pain is resolved, patient states 8 days ago see was found to have COVID-19, patient was started on dexamethasone from ER on 10/15 started the patient on remdesivir, on 10/16 patient complained of nausea it is chronic, gave patient Zofran and Protonix, today patient breathing is slightly rapid and sounds congested, repeat chest x-ray concerning for pneumonia and pulmonary edema will give the patient Lasix IV [address] the patient Levaquin 500 mg q.day will continue to monitor. patient is admitted as observation status. (2) Hypertension: Code(s): I10 - Essential (primary) hypertension Status: Acute Assessment and Plan: will continue home regimen and monitor (3) Chronic anticoagulation: Code(s): Z79.01 - manager long term care (current) use of anticoagulants Status: Acute Assessment and Plan: patient with history of atrial fibrillation anticoagulated Pradaxa (4) Atrial fibrillation: Code(s): I48.91 - Unspecified atrial fibrillation Status: Acute Assessment and Plan: rate is controlled with beta-veda anticoagulated with Pradaxa Subjective Date/time seen: 10/18/22 17:39 ED-HPI narrative: Patient is an 82-year-old female with a history of COPD here for evaluation of chest pain earlier today.? Patient states that she had two episodes of sharp chest pain in the center of her chest that lasted for seconds at a time before resolving without intervention.? Never had a history of pain like this before.? Sat in waiting room for 8 hours without pain.? She is currently COVID-positive.? She was hospitalized several weeks ago for acute on chronic respiratory failure in the setting of RSV. 10/18/2022 interval history: Patient is an 82-year-old female chronic respiratory failure on home oxygen 2L [place], with history of COPD and was recently discharged after treated for exacerbation, patient presents to emergency department with complaint of chest pain 3 sets of cardiac enzymes are negative, currently patient chest pain is resolved, patient states 8 days ago see was found to have COVID-19, patient was started on dexamethasone from ER on 10/15 started the patient on remdesivir, on 10/16 patient complained of nausea it is chronic, gave patient Zofran and Protonix, today patient breathing is slightly rapid and sounds congested, repeat chest x-ray concerning for pneumonia and pulmonary edema will give the patient Lasix IV [address] the patient Levaquin 500 mg q.day will continue to monitor. Exam Narrative: elderly frail Patient is comfortable, NAD HEENT: eyes are clear and none icteric LUNGS: normal respiratory effort ABD: not distended Lower extremities: no edema SKIN: nonjaundiced Neuro: grossly intact. Objective Data Vital Signs Vital Signs: Vital Signs - 24 hr 10/17/22 20:10 10/17/22 21:46 10/17/22 20:00 Temperature 97.9 F Pulse Rate 80 80 80 Respiratory Rate 22 H 22 H Blood Pressure 122/70 Pulse O
[2022-10-18] MEDS: ALPRAZolam (*CRX) 0.25 MG TABLET PO (19:37)
[2022-10-19] VITALS (16 sets, daily range): BP systolic 96–120; BP diastolic 54–60; PULSE 72–96; RESP 18–31; TEMP 36.1–36.5; O2SAT 94–98
[2022-10-19 06:01] LABS: Hematocrit 42.1 % (37.0-47.0); Hemoglobin 13.3 g/dL (12.0-15.0); Mean Corpuscular HGB Conc 31.6 g/dl (32-36); Mean Corpuscular Volume 101.4 fl (80-100); Platelet Count Result 230 k/mm3 (150-375); Red Blood Count 4.15 M/mm3 (4.2-5.4); Red Cell Distribution Width 14.2 % (11.5-14.5); White Blood Count 6.4 K/mm3 (4.5-10.0)
[2022-10-19 06:09] LABS: Alanine Aminotransferase 11 U/L (6-35); Albumin Level 3.2 g/dL (3.5-5.1); Alkaline Phosphatase 76 U/L (38-126); Anion Gap 5 mmol/L (8-16); Aspartate Amino Transferase 18 U/L (14-36); Bilirubin,Total 0.3 mg/dL (0.2-1.3); Blood Urea Nitrogen 25 mg/dL (7-17); Calcium 8.3 mg/dL (8.4-10.2); Carbon Dioxide 32 mmol/L (22-30); Chloride 98 mmol/L (98-107); Estimated CRCL calculation 37 ml/min; Estimated Glomerular Filt Rate 47; Glucose 79 mg/dL (65-110); Potassium 3.8 mmol/L (3.4-5.0); Sodium 135 mmol/L (137-145)
[2022-10-19] MEDS: DABIGATRAN ETEXILATE 75 MG CAPSULE PO ×2 (08:21→16:21)
[2022-10-19] MEDS: sulfaSALAzine 500 MG TABLET 1000 MG PO ×3 (08:21→16:21)
[2022-10-19] MEDS: lisinopriL 20 MG TABLET PO (08:21)
[2022-10-19] MEDS: allopurinoL 300 MG TABLET PO (08:21)
[2022-10-19] MEDS: POTASSIUM CHLORIDE 10 MEQ TABLET.ER PO (08:21)
[2022-10-19] MEDS: PANTOPRAZOLE SODIUM IV 40 MG VIAL IV PUSH (08:21)
[2022-10-19] MEDS: FUROSEMIDE INJ 40 MG/4 ML VIAL IV PUSH (08:21)
[2022-10-19] MEDS: SERTRALINE HCL 25 MG TABLET PO ×2 (08:21→16:22)
[2022-10-19] MEDS: carvediloL 12.5 MG TABLET PO ×2 (08:23→21:11)
[2022-10-19] MEDS: LOPERAMIDE HCL 2 MG CAPSULE PO (08:43)
[2022-10-19] MEDS: ALPRAZolam (*CRX) 0.25 MG TABLET PO ×3 (08:43→21:14)
[2022-10-19 10:30] LABS: Alveolar/Arterial O2 Gradient 127.8 mmHg; Base Excess ABG 5.2 mEq/l (+/-2.0); Device NASAL CANNULA; Fractional Inspired Oxygen 36 %; HCO3 ABG 29.5 mEq/l (22.0-26.0); Modified Allen's Test Pass; Oxygen Saturation ABG 96.3 % (95.0-100.0); PCO2 ABG 42.3 mmHg (35.0-45.0); PO2 ABG 79.8 mmHg (80.0-100.0); PO2 FiO2 Ratio Arterial Blood 2.22 %; Site Drawn LEFT RADIAL; Total Hemoglobin 14.2 g/dL (12.0-18.0); pH ABG 7.462 (7.350-7.450)
[2022-10-19] MEDS: REMDESIVIR 100 MG/NS 250 ML 100 MG/250 ML BAG 250 MG IVPB (10:44)
--- NOTE | 2022-10-19 12:36 | PM.CNPUL ---
Assessment and Plan Assessment and plan (1) COVID-19: Code(s): U07.1 - COVID-19 Status: Acute Assessment and Plan: 82-year-old female with a history of chronic hypoxemic respiratory failure, elevated pulmonary artery systolic pressure on last echocardiogram, moderate COPD obstructive sleep apnea on CPAP was readmitted to the hospital with chest pain. She was found to be positive for COVID-19 infection. Admission chest x-ray showed no evidence of a new infiltrates. On physical exam she has a distant breath sounds related to underlying COPD. patient has been fluid positive over the last few days and has been on oral Lasix. Etiology of shortness of breath unclear, and includes possible COVID-19 pneumonia versus congestive heart failure. she has no wheezing on physical exam and the arterial blood gases done earlier today showed no hypercapnia. Plan: Patient will be placed on nasal cannula and will have a repeat blood gases in about an hour. Will get chest CT to assess for possible new infiltrates related to COVID-19 infection. Further recommendations depending upon the findings of chest CT. (2) Atrial fibrillation: Code(s): I48.91 - Unspecified atrial fibrillation Status: Acute (3) Obstructive sleep apnea on CPAP: Code(s): G47.33 - Obstructive sleep apnea (adult) (pediatric); Z99.89 - Dependence on other enabling machines and devices Status: Acute (4) Acute and chronic respiratory failure with hypoxia: Code(s): J96.21 - Acute and chronic respiratory failure with hypoxia Status: Acute (5) CHF (congestive heart failure): Code(s): I50.9 - Heart failure, unspecified Status: Acute (6) COPD (chronic obstructive pulmonary disease): Qualifiers: COPD type: emphysema Emphysema type: unspecified Qualified Code(s): J43.9 - Emphysema, unspecified Code(s): J44.9 - Chronic obstructive pulmonary disease, unspecified Status: Acute History of Present Illness History of Present Illness Consult date: 10/19/22 Chief complaint: COPD Exacerbation, COVID + Narrative: this 82-year-old female with presented with a 1 day history of chest pain. The patient is well known to me. She has history of moderate COPD, obstructive sleep apnea on CPAP, recent hospitalization for COPD exacerbation related to RSV infection. During last hospitalization the patient was treated for hypoxemic hypercapnic respiratory failure and improved. She was undergoing rehabilitation physical therapy at the shelter where she started having chest pain. She had no shortness of breath fever chills hemoptysis night sweats coughing or sputum production. Upon evaluation the patient was found to be positive for COVID-19 infection. Currently she is on dexamethasone and remdesivir. Initial chest x-ray showed no new infiltrates. Patient continues to complain of shortness of breath and fatigue. She has no other respiratory symptoms suggestive of lower respiratory tract infection. In addition to treatment for COVID-19 infection she has been on levofloxacin IV, and Lasix daily. Since admission to the hospital she has been fluid positive. Arterial blood gases done today showed no hypercapnic respiratory failure. The patient has been on BiPAP support since this a.m.. She uses BiPAP support at night as well. the patient has history of moderate COPD with FEV1 in the range of 1.1 L or 60% predicted and mild reduction in lung diffusion capacity 69% predicted measured approximately 2 years ago. On chest imaging studies she has evidence of a prominent pulmonary arteries suggestive of pulmonary hypertension. On last echocardiogram the calculated pulmonary artery systolic pressure was measured 50 mmHg patient has a history of obstructive sleep apnea and has been on CPAP 9 cm. On last download report the device AHI was low. Review of Systems Review of Systems: All system review is negative except as noted
[2022-10-19 13:14] LABS: NT Pro B Type Natriuretic Pept 1120 pg/mL (5-100)
--- NOTE | 2022-10-19 15:05 | PC.NURSE ---
Pt blood pressure decreased this afternoon. aware.
[2022-10-19 15:53] LABS: Alveolar/Arterial O2 Gradient 122.6 mmHg; Base Excess ABG 5.4 mEq/l (+/-2.0); HCO3 ABG 28.5 mEq/l (22.0-26.0); Oxygen Content ABG 19.1 %vol (16.0-22.0); Oxygen Saturation ABG 97.2 % (95.0-100.0); Oxyhemoglobin 96.1 % THb (90.0-100.0); PCO2 ABG 36.4 mmHg (35.0-45.0); PO2 ABG 84.6 mmHg (80.0-100.0); PO2 FiO2 Ratio Arterial Blood 2.42 %; Total Hemoglobin 14.1 g/dL (12.0-18.0)
[2022-10-19 15:58] LABS: Device NASAL CANNULA; Modified Allen's Test Pass; Site Drawn LEFT RADIAL; pH ABG 7.511 (7.350-7.450)
[2022-10-19 15:59] LABS: Fractional Inspired Oxygen 28 %
[2022-10-19 16:11] LABS: INR 1.2
[2022-10-19] MEDS: levoFLOXacin 500 MG/D5W 100 ML 500 MG/100 ML BAG 100 MG IVPB (16:20)
[2022-10-19] MEDS: ALBUTEROL SULFATE NEB 2.5 MG/3 ML INH INHALATION (18:03)
--- NOTE | 2022-10-19 18:41 | PM.IMPN ---
Progress Note: A&P Assessment and Plan (1) COVID-19: Code(s): U07.1 - COVID-19 Status: Acute Assessment and Plan: ED-HPI narrative: Patient is an 82-year-old female with a history of COPD here for evaluation of chest pain earlier today.? Patient states that she had two episodes of sharp chest pain in the center of her chest that lasted for seconds at a time before resolving without intervention.? Never had a history of pain like this before.? Sat in waiting room for 8 hours without pain.? She is currently COVID-positive.? She was hospitalized several weeks ago for acute on chronic respiratory failure in the setting of RSV. 10/19/2022 interval history: Patient is an 82-year-old female chronic respiratory failure on home oxygen 2L [place], with history of COPD and was recently discharged after treated for exacerbation, patient presents to emergency department with complaint of chest pain 3 sets of cardiac enzymes are negative, currently patient chest pain is resolved, patient states 8 days ago see was found to have COVID-19, patient was started on dexamethasone from ER on 10/15 started the patient on remdesivir, on 10/16 patient complained of nausea it is chronic, gave patient Zofran and Protonix, today patient breathing is slightly rapid and sounds congested, repeat chest x-ray concerning for pneumonia and pulmonary edema gave the patient Lasix IV [address] the patient Levaquin 500 mg q.day, patient was seen by senior mainframe developer ordered ABG, showed respiratory alklosis, discussed with senior mainframe developer, thinks patient is anxious continue xanax, stopped dexamethasone, stopped lasix as patient creatinine is rising, will have PT/OT evaluate the patient. patient is admitted as observation status. (2) Hypertension: Code(s): I10 - Essential (primary) hypertension Status: Acute Assessment and Plan: will continue home regimen and monitor (3) Chronic anticoagulation: Code(s): Z79.01 - termination clerk (current) use of anticoagulants Status: Acute Assessment and Plan: patient with history of atrial fibrillation anticoagulated Pradaxa (4) Atrial fibrillation: Code(s): I48.91 - Unspecified atrial fibrillation Status: Acute Assessment and Plan: rate is controlled with beta-veda anticoagulated with Pradaxa Subjective Date/time seen: 10/19/22 18:41 10/19/2022 interval history: Patient is an 82-year-old female chronic respiratory failure on home oxygen 2L [place], with history of COPD and was recently discharged after treated for exacerbation, patient presents to emergency department with complaint of chest pain 3 sets of cardiac enzymes are negative, currently patient chest pain is resolved, patient states 8 days ago see was found to have COVID-19, patient was started on dexamethasone from ER on 10/15 started the patient on remdesivir, on 10/16 patient complained of nausea it is chronic, gave patient Zofran and Protonix, today patient breathing is slightly rapid and sounds congested, repeat chest x-ray concerning for pneumonia and pulmonary edema gave the patient Lasix IV [address] the patient Levaquin 500 mg q.day, patient was seen by senior mainframe developer ordered ABG, showed respiratory alklosis, discussed with senior mainframe developer, thinks patient is anxious continue xanax, stopped dexamethasone, stopped lasix as patient creatinine is rising, will have PT/OT evaluate the patient. Exam Narrative: elderly frail Patient is comfortable, NAD HEENT: eyes are clear and none icteric LUNGS: normal respiratory effort ABD: not distended Lower extremities: no edema SKIN: nonjaundiced Neuro: grossly intact. Objective Data Vital Signs Vital Signs: Vital Signs - 24 hr 10/18/22 20:23 10/18/22 20:25 10/18/22 20:30 Temperature 97.4 F L Pulse Rate 99 89 67 Respiratory Rate 20 24 H Blood Pressure 110/73 Pulse Oximetry 96 96 Oxygen Delivery BiPAP Oxygen Flow Rate
[2022-10-20] VITALS (19 sets, daily range): BP systolic 93–144; BP diastolic 68–88; PULSE 74–105; RESP 20–28; TEMP 35.9–36.5; O2SAT 95–99
[2022-10-20 05:47] LABS: Hematocrit 41.7 % (37.0-47.0); Hemoglobin 13.6 g/dL (12.0-15.0); Mean Corpuscular HGB Conc 32.6 g/dl (32-36); Mean Corpuscular Hemoglobin 32.5 pg (26-34); Mean Corpuscular Volume 99.5 fl (80-100); Mean Platelet Volume 9.6 fl (7.4-10.4); Platelet Count Result 228 k/mm3 (150-375); Red Blood Count 4.19 M/mm3 (4.2-5.4); Red Cell Distribution Width 14.2 % (11.5-14.5); White Blood Count 7.8 K/mm3 (4.5-10.0)
[2022-10-20 06:04] LABS: Alanine Aminotransferase 10 U/L (6-35); Alkaline Phosphatase 77 U/L (38-126); Anion Gap 3 mmol/L (8-16); Aspartate Amino Transferase 17 U/L (14-36); Bilirubin,Total 0.2 mg/dL (0.2-1.3); Blood Urea Nitrogen 25 mg/dL (7-17); Calcium 8.2 mg/dL (8.4-10.2); Carbon Dioxide 31 mmol/L (22-30); Chloride 99 mmol/L (98-107); Estimated CRCL calculation 37 ml/min; Estimated Glomerular Filt Rate 47; Glucose 81 mg/dL (65-110); Potassium 3.3 mmol/L (3.4-5.0); Sodium 133 mmol/L (137-145)
[2022-10-20] MEDS: POTASSIUM CHLORIDE 20 MEQ TABLET 40 MEQ PO (09:12)
[2022-10-20] MEDS: sulfaSALAzine 500 MG TABLET 1000 MG PO ×3 (09:12→17:38)
[2022-10-20] MEDS: POTASSIUM CHLORIDE 10 MEQ TABLET.ER PO (09:12)
[2022-10-20] MEDS: carvediloL 12.5 MG TABLET PO ×2 (09:13→20:26)
[2022-10-20] MEDS: allopurinoL 300 MG TABLET PO (09:13)
[2022-10-20] MEDS: PANTOPRAZOLE SODIUM IV 40 MG VIAL IV PUSH (09:14)
[2022-10-20] MEDS: lisinopriL 20 MG TABLET PO (09:14)
[2022-10-20] MEDS: DABIGATRAN ETEXILATE 75 MG CAPSULE PO ×2 (09:14→17:39)
[2022-10-20] MEDS: SERTRALINE HCL 25 MG TABLET PO ×2 (09:14→17:39)
[2022-10-20] MEDS: ALPRAZolam (*CRX) 0.25 MG TABLET PO ×2 (09:18→20:27)
--- NOTE | 2022-10-20 10:39 | PM.PNPUL ---
Progress Note: A&P Assessment and Plan (1) COVID-19: Code(s): U07.1 - COVID-19 Status: Acute (2) Acute and chronic respiratory failure with hypoxia: Code(s): J96.21 - Acute and chronic respiratory failure with hypoxia Status: Acute Assessment and Plan: ? 82-year-old female with a history of chronic hypoxemic respiratory failure, mild sleep apnea on CPAP support at night, elevated pulmonary artery systolic pressure on last echocardiogram, moderate COPD was readmitted to the hospital with chest pain.? She was found to be positive for COVID-19 infection. ? Admission chest x-ray showed no evidence of a new infiltrates. repeat chest CT done yesterday again showed no infiltrates related to COVID-19 infection. Patient was complaining of shortness of breath and she was found to have component of respiratory alkalosis on yesterday's blood gases probably related to anxiety. She used anxiolytics medication last night and also this a.m.. Currently she has less shortness of breath while on supplemental oxygen at 2 liters/minute. No evidence of DVT lower extremities .? On physical exam she has a distant breath sounds related to underlying COPD. ? patient has been fluid positive over the last few days and has been on oral Lasix.? Plan: Continue with supplemental oxygen during the day and BiPAP support at night. The patient would like to use her own CPAP device if it can be brought to the bedside. Alternatively she will continue with a BiPAP support using lower pressures. Continue with the gentle diuresis. Have discontinued remdesivir and dexamethasone though as she has no evidence of COVID-19 pneumonia. (3) Oxygen dependent: Code(s): Z99.81 - Dependence on supplemental oxygen Status: Acute (4) CHF (congestive heart failure): Code(s): I50.9 - Heart failure, unspecified Status: Acute (5) Obstructive sleep apnea: Onset Date: ~12/2020 Code(s): G47.33 - Obstructive sleep apnea (adult) (pediatric) Status: Chronic (6) Hyperinflation of lungs: Code(s): R09.89 - Other specified symptoms and signs involving the circulatory and respiratory systems Status: Acute (7) Pulmonary hypertension: Code(s): I27.20 - Pulmonary hypertension, unspecified Status: Acute Subjective Date/time seen: 10/20/22 10:39 patient doing better today. Slept better last night. Used BiPAP support last night she has no change in shortness of breath cough or sputum production. Receiving oral anxiolytic for increased anxiety. Chest CT done yesterday showed no infiltrates related to COVID 19 infection. Lower extremities duplex study negative for DVT. Review of Systems Review of Systems: All system review is negative except as noted in HPI and below. Exam Narrative: GENERAL APPEARANCE: Well developed, well nourished, alert and cooperative, and appears to be in mild respiratory distress while sitting up in bed Breathing oxygen via nasal cannula SKIN: Inspection of the skin reveals no rashes, ulcerations or petechiae. HEENT: Sclerae anicteric and conjunctivae pink and moist. Extraocular movements were intact and pupils were equal, round. NECK: Supple. There was no thyroid enlargement, and no tenderness, or masses were felt. LUNGS: Auscultation of the lungs revealed distant breath sounds, no wheezing CARDIAC: There was an regular rate and rhythm without any murmurs, gallops, rubs. ABDOMEN: Soft and nontender with normal bowel sounds. There was no organomegaly. LYMPH NODES: No lymphadenopathy was appreciated in the neck. EXTREMITIES: No cyanosis, clubbing or edema. NEUROLOGIC: Alert and oriented x 3. Normal affect. Objective Data Vital Signs Vital Signs: Vital Signs - 24 hr 10/19/22 12:00 10/19/22 14:00 10/19/22 16:00 Temperature 36.5 C Pulse Rate 90 72 87 Respiratory Rate 20 Blood Pressure 96/54 L Pulse Oximetry 98 Oxygen Delivery Oxygen Flow Rate
--- NOTE | 2022-10-20 14:30 | PC.NURSE ---
Health Outreach Worker spoke with respiratory therapist Russell to give patient a nebulizer treatment.
--- NOTE | 2022-10-20 14:41 | PC.NURSE ---
Aircraft Maintenance Instructor called Hospitalist Howie to update on patients condition after breathing treatment. No answer. Will call again.
[2022-10-20 15:19] LABS: Alveolar/Arterial O2 Gradient 67.9 mmHg; Base Excess ABG 4.7 mEq/l (+/-2.0); Fractional Inspired Oxygen 30 %; HCO3 ABG 28.8 mEq/l (22.0-26.0); Oxygen Content ABG 19.6 %vol (16.0-22.0); Oxygen Saturation ABG 97.8 % (95.0-100.0); Oxyhemoglobin 96.5 % THb (90.0-100.0); PCO2 ABG 40.8 mmHg (35.0-45.0); PO2 ABG 98.1 mmHg (80.0-100.0); PO2 FiO2 Ratio Arterial Blood 3.27 %; Total Hemoglobin 14.4 g/dL (12.0-18.0); pH ABG 7.466 (7.350-7.450)
[2022-10-20 15:20] LABS: Device NON-INVASIVE VENT; Modified Allen's Test Pass; Non-Invasive Expiratory Pressure 6 CMH2O; Non-Invasive Inspiratory Pressure 12 CMH2O; Non-Invasive Vent Rate 12 /MIN; Site Drawn RIGHT RADIAL
--- NOTE | 2022-10-20 16:51 | PM.IMPN ---
Progress Note: A&P Assessment and Plan (1) COVID-19: Code(s): U07.1 - COVID-19 Status: Acute Assessment and Plan: ED-HPI narrative: Patient is an 82-year-old female with a history of COPD here for evaluation of chest pain earlier today.? Patient states that she had two episodes of sharp chest pain in the center of her chest that lasted for seconds at a time before resolving without intervention.? Never had a history of pain like this before.? Sat in waiting room for 8 hours without pain.? She is currently COVID-positive.? She was hospitalized several weeks ago for acute on chronic respiratory failure in the setting of RSV. 10/20/2022 interval history: Patient is an 82-year-old female chronic respiratory failure on home oxygen 2L [place], with history of COPD and was recently discharged after treated for exacerbation, patient presents to emergency department with complaint of chest pain 3 sets of cardiac enzymes are negative, currently patient chest pain is resolved, patient states 8 days ago see was found to have COVID-19, patient was started on dexamethasone from ER on 10/15 started the patient on remdesivir, on 10/16 patient complained of nausea it is chronic, gave patient Zofran and Protonix, today patient breathing is slightly rapid and sounds congested, repeat chest x-ray concerning for pneumonia and pulmonary edema gave the patient Lasix IV [address] the patient Levaquin 500 mg q.day, patient was seen by edge grinder ordered ABG, showed respiratory alklosis, discussed with edge grinder, thinks patient is anxious continue xanax, stopped dexamethasone, stopped lasix as patient creatinine is rising, today again patient was seen by the pulmonology, recommended patient need to use her home CPAP, unfortunately unable to get CPAP from home however patient is tolerating CPAP from the hospital, will continue to monitor, will have PT/OT evaluate the patient. patient is admitted as observation status. (2) Hypertension: Code(s): I10 - Essential (primary) hypertension Status: Acute Assessment and Plan: will continue home regimen and monitor (3) Chronic anticoagulation: Code(s): Z79.01 - technology recruiter (current) use of anticoagulants Status: Acute Assessment and Plan: patient with history of atrial fibrillation anticoagulated Pradaxa (4) Atrial fibrillation: Code(s): I48.91 - Unspecified atrial fibrillation Status: Acute Assessment and Plan: rate is controlled with beta-veda anticoagulated with Pradaxa Subjective Date/time seen: 10/20/22 16:51 ED-HPI narrative: Patient is an 82-year-old female with a history of COPD here for evaluation of chest pain earlier today.? Patient states that she had two episodes of sharp chest pain in the center of her chest that lasted for seconds at a time before resolving without intervention.? Never had a history of pain like this before.? Sat in waiting room for 8 hours without pain.? She is currently COVID-positive.? She was hospitalized several weeks ago for acute on chronic respiratory failure in the setting of RSV. 10/20/2022 interval history: Patient is an 82-year-old female chronic respiratory failure on home oxygen 2L [place], with history of COPD and was recently discharged after treated for exacerbation, patient presents to emergency department with complaint of chest pain 3 sets of cardiac enzymes are negative, currently patient chest pain is resolved, patient states 8 days ago see was found to have COVID-19, patient was started on dexamethasone from ER on 10/15 started the patient on remdesivir, on 10/16 patient complained of nausea it is chronic, gave patient Zofran and Protonix, today patient breathing is slightly rapid and sounds congested, repeat chest x-ray concerning for pneumonia and pulmonary edema gave the patient Lasix IV [address] the patient Levaquin 500 mg q.day, patient was seen by edge grinder kinjal
[2022-10-20] MEDS: levoFLOXacin 500 MG/D5W 100 ML 500 MG/100 ML BAG 100 MG IVPB (17:38)
[2022-10-20] MEDS: LOPERAMIDE HCL 2 MG CAPSULE PO (17:38)
[2022-10-20] MEDS: ALBUTEROL SULFATE NEB 2.5 MG/3 ML INH INHALATION (20:41)
[2022-10-21] VITALS (9 sets, daily range): BP systolic 104–136; BP diastolic 61–65; PULSE 76–112; RESP 20–22; TEMP 36.3–36.8; O2SAT 97–98
[2022-10-21 07:35] LABS: Hematocrit 42.2 % (37.0-47.0); Hemoglobin 13.6 g/dL (12.0-15.0); Mean Corpuscular HGB Conc 32.2 g/dl (32-36); Mean Corpuscular Hemoglobin 32.1 pg (26-34); Mean Corpuscular Volume 99.5 fl (80-100); Mean Platelet Volume 9.4 fl (7.4-10.4); Platelet Count Result 240 k/mm3 (150-375); Red Blood Count 4.24 M/mm3 (4.2-5.4); Red Cell Distribution Width 14.3 % (11.5-14.5); White Blood Count 8.2 K/mm3 (4.5-10.0)
[2022-10-21 07:46] LABS: Alanine Aminotransferase 11 U/L (6-35); Albumin Level 3.1 g/dL (3.5-5.1); Alkaline Phosphatase 79 U/L (38-126); Anion Gap 3 mmol/L (8-16); Aspartate Amino Transferase 18 U/L (14-36); Bilirubin,Total 0.3 mg/dL (0.2-1.3); Blood Urea Nitrogen 18 mg/dL (7-17); Calcium 8.5 mg/dL (8.4-10.2); Carbon Dioxide 29 mmol/L (22-30); Chloride 106 mmol/L (98-107); Estimated CRCL calculation 50 ml/min; Estimated Glomerular Filt Rate > 60; Glucose 94 mg/dL (65-110); Potassium 3.9 mmol/L (3.4-5.0); Sodium 138 mmol/L (137-145)
[2022-10-21] MEDS: POTASSIUM CHLORIDE 10 MEQ TABLET.ER PO (09:42)
[2022-10-21] MEDS: allopurinoL 300 MG TABLET PO (09:43)
[2022-10-21] MEDS: lisinopriL 20 MG TABLET PO (09:43)
[2022-10-21] MEDS: sulfaSALAzine 500 MG TABLET 1000 MG PO ×2 (09:43→12:37)
[2022-10-21] MEDS: SERTRALINE HCL 25 MG TABLET PO (09:43)
[2022-10-21] MEDS: carvediloL 12.5 MG TABLET PO (09:43)
[2022-10-21] MEDS: DABIGATRAN ETEXILATE 75 MG CAPSULE PO (09:43)
[2022-10-21] MEDS: PANTOPRAZOLE SODIUM IV 40 MG VIAL IV PUSH (09:43)
--- NOTE | 2022-10-21 12:38 | PM.DS ---
DS: Admitting Diagnosis Discharge Date 10/21/2022 Admitting Diagnosis chest pain DS: Discharge Diagnosis Discharge Diagnosis (1) COVID-19: Code(s): U07.1 - COVID-19 Status: Acute Assessment and Plan: ED-HPI narrative: Patient is an 82-year-old female with a history of COPD here for evaluation of chest pain earlier today.? Patient states that she had two episodes of sharp chest pain in the center of her chest that lasted for seconds at a time before resolving without intervention.? Never had a history of pain like this before.? Sat in waiting room for 8 hours without pain.? She is currently COVID-positive.? She was hospitalized several weeks ago for acute on chronic respiratory failure in the setting of RSV. 10/20/2022 interval history: Patient is an 82-year-old female chronic respiratory failure on home oxygen 2L [place], with history of COPD and was recently discharged after treated for exacerbation, patient presents to emergency department with complaint of chest pain 3 sets of cardiac enzymes are negative, currently patient chest pain is resolved, patient states 8 days ago see was found to have COVID-19, patient was started on dexamethasone from ER on 10/15 started the patient on remdesivir, on 10/16 patient complained of nausea it is chronic, gave patient Zofran and Protonix, today patient breathing is slightly rapid and sounds congested, repeat chest x-ray concerning for pneumonia and pulmonary edema gave the patient Lasix IV [address] the patient Levaquin 500 mg q.day, patient was seen by paintings conservator ordered ABG, showed respiratory alklosis, discussed with paintings conservator, thinks patient is anxious continue xanax, stopped dexamethasone, stopped lasix as patient creatinine is rising, today again patient was seen by the pulmonology, recommended patient need to use her home CPAP, unfortunately unable to get CPAP from home however patient is tolerating CPAP from the hospital, will continue to monitor, will have PT/OT evaluate the patient. patient is admitted as observation status. (2) Hypertension: Code(s): I10 - Essential (primary) hypertension Status: Acute Assessment and Plan: will continue home regimen and monitor (3) Chronic anticoagulation: Code(s): Z79.01 - half-way (current) use of anticoagulants Status: Acute Assessment and Plan: patient with history of atrial fibrillation anticoagulated Pradaxa (4) Atrial fibrillation: Code(s): I48.91 - Unspecified atrial fibrillation Status: Acute Assessment and Plan: rate is controlled with beta-veda anticoagulated with Pradaxa DS: Summary Hospital Course Reason for hospitalization: ED-HPI narrative: Patient is an 82-year-old female with a history of COPD here for evaluation of chest pain earlier today.? Patient states that she had two episodes of sharp chest pain in the center of her chest that lasted for seconds at a time before resolving without intervention.? Never had a history of pain like this before.? Sat in waiting room for 8 hours without pain.? She is currently COVID-positive.? She was hospitalized several weeks ago for acute on chronic respiratory failure in the setting of RSV. Patient is an 82-year-old female chronic respiratory failure on home oxygen 2L [place],? with history of COPD and was recently discharged after treated for exacerbation, patient presents to emergency department with complaint of chest pain 3 sets of cardiac enzymes are negative,? currently patient chest pain is resolved, patient states 5 days ago see was found to have COVID-19, patient was started on dexamethasone from ER will start the patient on remdesivir, will continue to monitor and further recommendation to follow. patient currently in isolation. Hospital Course: ?Patient is an 82-year-old female chronic respiratory failure on home oxygen 2L [place],? with history of COPD and was recently discharged after treated
--- NOTE | 2022-10-21 12:47 | PC.NURSE ---
Called [facility] to give report and no answer. Will call again.
--- NOTE | 2022-10-21 13:57 | PC.NURSE ---
Report given to nurse at [facility]
== END 2022-10-21 15:53 | DRG 177 ==
LOC: ANHED 10-15 00:30 → ANH3MED 10-15 02:30
PROVIDERS: Emergency Medicine; Internal Medicine Pulmonary Disease; Admitting Provider Internal Medicine; Emergency Provider Physician Assistant; PCP Internal Medicine; Visit Provider Family Medicine
DX: U07.1 COVID-19 (principal); J96.21 Acute and chronic respiratory failure with hypoxia; Z79.01 Long term (current) use of anticoagulants; I48.91 Unspecified atrial fibrillation; Z99.81 Dependence on supplemental oxygen; J44.9 Chronic obstructive pulmonary disease, unspecified; G47.33 Obstructive sleep apnea (adult) (pediatric); I27.20 Pulmonary hypertension, unspecified; I50.9 Heart failure, unspecified; I11.0 Hypertensive heart disease with heart failure; M10.9 Gout, unspecified; F41.9 Anxiety disorder, unspecified; Z87.891 Personal history of nicotine dependence; Z79.51 Long term (current) use of inhaled steroids; Z79.899 Other long term (current) drug therapy; Z88.0 Allergy status to penicillin; Z91.041 Radiographic dye allergy status; Z91.013 Allergy to seafood; Z82.49 Family history of ischemic heart disease and other diseases of the circulatory system
CPT/HCPCS: 36415; 36600; 71045; 71250; 80053; 82565; 82805; 83690; 83880; 84460; 84484; 85025; 85027; 85610; 85730; 86140; 93005; 93970; 94002; 94003; 94640; 99285; A9270; C9113; G0378; J0248; J1100; J1940; J1956; J2930

== ENCOUNTER 2023-04-13 12:17 | Outpatient (CLI) | payer MEDICARE, SELFPAY ==
--- NOTE | 2023-04-13 12:22 | ECHO_ITS ---
Patient Info Name: Giselle Aranda Age: 82 years : 1940 Gender: Female Ht: 66 in Wt: 178 lbs BSA: 1.96 m2 HR: 63 bpm BP: 148 / 74 mmHg Heart Rhythm: Atrial Fibrillation Technical Quality: Good Exam Date: 04/13/2023 12:43 PM Exam Location: [facility] Patient Status: Outpatient Admit Date: 04/13/2023 Staff Ordering Physician: John Greenwood DO Information Analyst: Treasure Chang RDCS Attending Provider: John Greenwood DO Referring Physician: Timo DO; Exam Type: CA echo doppler color flow Study Info Indications I35.0 - Nonrheumatic aortic (valve) stenosis Complete two-dimensional, color flow and Doppler transthoracic echocardiogram is performed. Summary 1. Complete two-dimensional, color flow and Doppler transthoracic echocardiogram is performed. 2. Left ventricular chamber dimension is normal. 3. Left ventricular systolic function is normal, estimated at 65-70%. 4. There is mild concentric increased left ventricular wall thickness. 5. The left ventricular diastolic function is abnormal. 6. E/e' 17 is elevated. 7. Atrial fibrillation. 8. Right ventricular chamber dimension is mildly enlarged. 9. Right ventricular systolic function is moderately reduced and with abnormal TAPSE 1.3 cm. 10. Left atrial chamber dimension is severely enlarged. 11. Right atrial chamber dimension is severely enlarged. 12. There is severe aortic valve sclerosis. 13. There is mild aortic valve regurgitation. 14. There is critical aortic valve stenosis with a peak velocity of 408 cm/s, mean gradient of 34 mmHg, and aortic valve area of 0.5 cm2. 15. The mitral valve has moderately calcified annulus. 16. There is moderate mitral valve regurgitation. 17. There is moderate tricuspid valve regurgitation. 18. Moderate pulmonary hypertension, estimated pulmonary arterial systolic pressure is 55 mmHg. 19. There is trace pulmonic regurgitation. Left Ventricle E/e' 17 is elevated. Atrial fibrillation. Left ventricular chamber dimension is normal. Left ventricular systolic function is normal, estimated at 65-70%. There is mild concentric increased left ventricular wall thickness. The left ventricular diastolic function is abnormal. Right Ventricle Right ventricular systolic function is moderately reduced and with abnormal TAPSE 1.3 cm. Right ventricular chamber dimension is mildly enlarged. Left Atria Left atrial chamber dimension is severely enlarged. Right Atria Right atrial chamber dimension is severely enlarged. Aortic Valve There is critical aortic valve stenosis with a peak velocity of 408 cm/s, mean gradient of 34 mmHg, and aortic valve area of 0.5 cm2. The aortic valve is trileaflet. There is severe aortic valve sclerosis. There is mild aortic valve regurgitation. Pulmonic Valve There is trace pulmonic regurgitation. Mitral Valve The mitral valve has moderately calcified annulus. There is no mitral valve stenosis. There is moderate mitral valve regurgitation. Tricuspid Valve There is moderate tricuspid valve regurgitation. Moderate pulmonary hypertension, estimated pulmonary arterial systolic pressure is 55 mmHg. Pericardium/Pleural There is no pericardial effusion. Inferior Vena Cava Normal inferior vena cava with >50% collapse upon inspiration consistent with normal right atrial pressure, 5 mmHg. Aorta The aortic root size at the sinus of Valsalva is normal. Left Ventricular Outflow Tract Name Value Normal
== END 2023-04-13 12:18 | disposition home or self-care (01) ==
LOC: ANHCARD 12:20
PROVIDERS: PCP Family Medicine; Visit Provider Internal Medicine Cardiovascular Disease
DX: I08.3 Combined rheumatic disorders of mitral, aortic and tricuspid valves (principal)
CPT/HCPCS: 93306

== ENCOUNTER 2023-04-20 04:20 | Day surgery (SDC) | payer MEDICARE, SELFPAY ==
[2023-04-19 16:45] VITALS: BMI 28.8
[2023-04-20] VITALS (8 sets, daily range): BP systolic 99–143; BP diastolic 70–92; PULSE 75–95; RESP 16–29; TEMP 36.9; O2SAT 98–100; BMI 30.7
--- NOTE | 2023-04-20 11:26 | ECHO_ITS ---
Patient Info Name: Giselle Aranda Age: 82 years : 1940 Gender: Female Ht: 66 in Wt: 190 lbs BSA: 2.03 m2 Technical Quality: Good Exam Date: 04/20/2023 11:44 AM Exam Location: [facility] Patient Status: Outpatient Admit Date: 04/20/2023 Staff Ordering Physician: John Greenwood DO Daytime Caregiver: Yadi Adair RDCS Attending Provider: John Greenwood DO Referring Physician: Timo DO; Exam Type: CA echo transesophageal Study Info Indications I35.0 - Nonrheumatic aortic (valve) stenosis Complete two-dimensional, color flow and Doppler transesophageal study is performed. Procedure Details Risks/benefits/alternative to EMANI discuss with patient and she gave informed consent. Patient was monitored electrocardiographically, BP, HR, pulse ox and they remained stable. Patient given cetacaine spray to posterior oropharynx x 2. Fentanyl 25 mcg and Versed 1 mg IV given. EMANI probe advanced without incident into esophagus. Images were obtained. Agitated saline injection given. EMANI probe withdrawn and no blood noted on EMANI probe tip. She tolerated procedure well with no complications. Summary 1. Left ventricular chamber dimension is normal. 2. There is moderately increased left ventricular wall thickness. 3. Left ventricular systolic function is normal with an ejection fraction of 60-65%. 4. Right ventricular chamber dimension is mildly enlarged. 5. Right ventricular systolic function is moderately reduced. 6. Left atrial chamber dimension is moderately enlarged. 7. Right atrial chamber dimension is moderately enlarged. 8. Agitated saline injection opacified right side cardiac chambers with several bubbles shunt to left side cardiac chambers suggestive of patent foramen ovale. 9. There is severe aortic valve sclerosis. 10. There is critical aortic valve stenosis with valve area of 0.5 cm2 by planimetry. 11. There is severe mitral valve regurgitation. 12. There is mild tricuspid valve regurgitation. Left Ventricle Left ventricular systolic function is normal with an ejection fraction of 60-65%. The left ventricular diastolic function is indeterminate as it was not assessed. Left ventricular chamber dimension is normal. There is moderately increased left ventricular wall thickness. Right Ventricle Right ventricular systolic function is moderately reduced. Right ventricular chamber dimension is mildly enlarged. Left Atria Left atrial chamber dimension is moderately enlarged. Right Atria Right atrial chamber dimension is moderately enlarged. Atrial Septum Agitated saline injection opacified right side cardiac chambers with several bubbles shunt to left side cardiac chambers suggestive of patent foramen ovale. Suspected patent foramen ovale visualized by 2D, color flow and agitated saline imaging. Atrial Appendage There is no thrombus visualized in the left atrial appendage. Aortic Valve There is critical aortic valve stenosis with valve area of 0.5 cm2 by planimetry. The aortic valve is trileaflet. There is severe aortic valve sclerosis. There is no aortic valve regurgitation. Pulmonic Valve There is no pulmonic regurgitation. Mitral Valve There is no mitral valve stenosis. There is severe mitral valve regurgitation. Tricuspid Valve RVSP is not assessed. There is mild tricuspid valve regurgitation. Pericardium/Pleural There is no pericardial effusion. Inferior Vena Cava Inferior vena cava is not well visualized. Aorta The aortic root size at the sinus of Valsalva is normal. Aortic Valve
== END 2023-04-20 13:30 | disposition home or self-care (01) ==
PROVIDERS: PCP Family Medicine; Visit Provider Internal Medicine Cardiovascular Disease
PROC: (CPT 93312; principal; 2023-04-20 12:00)
DX: I08.3 Combined rheumatic disorders of mitral, aortic and tricuspid valves (principal); J44.9 Chronic obstructive pulmonary disease, unspecified; I48.91 Unspecified atrial fibrillation; I11.0 Hypertensive heart disease with heart failure; I50.43 Acute on chronic combined systolic (congestive) and diastolic (congestive) heart failure; J96.11 Chronic respiratory failure with hypoxia; G47.33 Obstructive sleep apnea (adult) (pediatric); Z87.891 Personal history of nicotine dependence; Z79.51 Long term (current) use of inhaled steroids; Z79.01 Long term (current) use of anticoagulants
CPT/HCPCS: 93312; 93320; 93325; J2250; J3010; J7040

== ENCOUNTER 2023-06-02 12:34 | Inpatient (IN) | payer MEDICARE, SELFPAY ==
[2023-06-02] VITALS (41 sets, daily range): BP systolic 128–159; BP diastolic 58–99; PULSE 81–115; RESP 15–35; TEMP 36.4–36.6; O2SAT 93–100
--- NOTE | ~2023-06-02 | XR_ITS ---
EXAMINATION: XR chest 1V portable INDICATION: COPD exacerbation TECHNIQUE: Portable AP chest at 1306 hours COMPARISON: 10/18/2022 FINDINGS: There are chronic airspace opacities of the right midlung zone, consistent with atelectasis or scarring. Cardiomegaly is noted. No pleural effusion or pneumothorax. Internal fixation of three left-sided rib is again noted. IMPRESSION: 1. Atelectasis versus scarring of the right midlung zone. Reviewed, dictated and finalized at location A.
--- NOTE | ~2023-06-02 | US_ITS ---
EXAMINATION: US venous doppler [facility] DATE: 06/03/2023 08:52 INDICATION: Bilateral lower limb swelling TECHNIQUE: Johnson scale images without and with compression and Doppler images of the bilateral lower e xtremity veins were obtained. COMPARISON: 10/19/2022 FINDINGS: The right common femoral vein, profunda femoral vein, femoral vein, popliteal vein, peroneal trunk, p osterior tibial veins, and greater saphenous vein are patent. The left common femoral vein, profunda femoral vein, femoral vein, popliteal vein, peroneal trunk, po sterior tibial veins, and greater saphenous vein are patent. IMPRESSION: 1. Patent bilateral lower extremity veins. No evidence of deep venous thrombosis. Reviewed, dictated and finalized at location A. IMPRESSION: 1. Patent bilateral lower extremity veins. No evidence of deep venous thrombosi s.
--- NOTE | ~2023-06-02 | XR_ITS ---
EXAMINATION: XR chest 2V DATE: 06/03/2023 13:54 INDICATION: Chronic obstructive pulmonary disease exacerbation. TECHNIQUE: Frontal and lateral views of the chest were obtained on 3 radiographs. COMPARISON: Chest single view 06/02/2023, chest CT 10/19/2022 FINDINGS: The lungs are hyperexpanded, consistent with chronic obstructive pulmonary disease. There i s mild scarring at the lung apices. There is discoid atelectasis in right midlung zone. No pleural ef fusion or pneumothorax. Cardiomegaly is noted. There is plate and screw fixation of multiple left rib s. IMPRESSION: 1. Hyperexpanded lungs, consistent with chronic obstructive pulmonary disease. 2. Discoid atelectasis in right midlung zone. 3. Cardiomegaly. Reviewed, dictated and finalized at location E.
--- NOTE | 2023-06-02 12:38 | ECG_ITS ---
Measurements Intervals [place] Rate: 91 P: [place]: 0 QRS: 6 QRSD: 92 T: 7 QT: 330 QTc: 408 Interpretive Statements ATRIAL FIBRILLATION WITH ABERRANT CONDUCTION OR VENTRICULAR PREMATURE COMPLEXES INCOMPLETE RIGHT BUNDLE BRANCH BLOCK ABNORMAL ECG COMPARED TO ECG 10/14/2022 14:09:58 NO SIGNIFICANT CHANGES Electronically Signed On 06-04-2023 15:26:25 CDT by Higinio Malhotra M.D.
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
[2023-06-02 13:02] LABS: Fractional Inspired Oxygen 35 %; HCO3 VBG 28.4 mEq/l (24.0-30.0); PCO2 VBG 45.3 mmHg (42.0-48.0); PO2 VBG 50.1 mmHg (35.0-45.0)
[2023-06-02 13:05] LABS: Basophils Absolute Auto 0.1 K/mm3 (0.0-0.1); Basophils Percent Auto 0.4 % (0.2-1.2); Eosinophils Absolute Auto 0.1 K/mm3 (0-0.3); Eosinophils Percent Auto 0.8 % (0-4.4); Hematocrit 45.4 % (37.0-47.0); Hemoglobin 13.9 g/dL (12.0-15.0); Immature Granulocyte Absolute 0.22 K/mm3 (0.00-0.031); Immature Granulocyte Percent A 1.7 % (0-0.5); Lymphocytes Absolute Auto 1.41 K/mm3 (0.9-3.2); Lymphocytes Percent Auto 11.1 % (18.3-44.2); Mean Corpuscular HGB Conc 30.6 g/dl (32-36); Mean Corpuscular Hemoglobin 32.2 pg (26-34); Mean Corpuscular Volume 105.1 fl (80-100); Mean Platelet Volume 9.9 fl (7.4-10.4); Monocytes Absolute Auto 1.2 K/mm3 (0.1-0.6); Monocytes Percent Auto 9.4 % (2.6-8.5); Neutrophils Absolute Auto 9.7 K/mm3 (1.3-6.7); Neutrophils Percent Auto 76.6 % (45.5-73.1); Platelet Count Result 180 k/mm3 (150-375); Red Blood Count 4.32 M/mm3 (4.2-5.4); Red Cell Distribution Width 15.9 % (11.5-14.5); White Blood Count 12.7 K/mm3 (4.5-10.0)
[2023-06-02 13:06] LABS: pH VBG 7.415 (7.300-7.400)
[2023-06-02] MEDS: ALBUTEROL SULFATE NEB 2.5 MG/3 ML INH 5 MG INHALATION (13:11)
[2023-06-02 13:15] LABS: Alanine Aminotransferase 47 U/L (6-35); Albumin Level 3.7 g/dL (3.5-5.1); Alkaline Phosphatase 78 U/L (38-126); Anion Gap 5 mmol/L (8-16); Aspartate Amino Transferase 45 U/L (14-36); Bilirubin,Total 0.9 mg/dL (0.2-1.3); Blood Urea Nitrogen 23 mg/dL (7-17); Calcium 8.8 mg/dL (8.4-10.2); Carbon Dioxide 29 mmol/L (22-30); Chloride 106 mmol/L (98-107); Estimated CRCL calculation 59 ml/min; Estimated Glomerular Filt Rate > 60; Glucose 123 mg/dL (65-110); Magnesium 2.1 mg/dL (1.6-2.3); Potassium 4.2 mmol/L (3.4-5.0); Sodium 140 mmol/L (137-145)
[2023-06-02 13:23] LABS: Anisocytosis 1+ (NORMAL); Platelet Estimate Adequate (Adequate); Schistocytes None Seen (NORMAL)
[2023-06-02 13:27] LABS: Troponin I 0.013 ng/mL (0.000-0.034)
[2023-06-02] MEDS: MAGNESIUM SULF 2 GM/WATER 50ML 2 GM/50 ML BAG IVPB (13:28)
[2023-06-02] MEDS: CALCIUM GLUCONATE 1,000 MG/10 ML VIAL 2000 MG IV PUSH (13:28)
[2023-06-02 14:38] LABS: Alveolar/Arterial O2 Gradient 95.1 mmHg; Base Excess ABG 2.6 mEq/l (+/-2.0); Fractional Inspired Oxygen 35 %; HCO3 ABG 28.3 mEq/l (22.0-26.0); Oxygen Saturation ABG 97.4 % (95.0-100.0); Oxyhemoglobin 95.5 % THb (90.0-100.0); PCO2 ABG 47.7 mmHg (35.0-45.0); PO2 FiO2 Ratio Arterial Blood 2.83 %; Total Hemoglobin 14.8 g/dL (12.0-18.0); pH ABG 7.391 (7.350-7.450)
[2023-06-02 14:40] LABS: Device BIPAP; Modified Allen's Test Pass; Site Drawn LEFT RADIAL
[2023-06-02 14:41] LABS: Expiratory Pressure 6 cmH2O; Inspiratory Pressure 12 cmH2O
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
[2023-06-02] MEDS: ALBUTEROL SULFATE NEB 2.5 MG/3 ML INH INHALATION ×2 (15:43→20:30)
--- NOTE | 2023-06-02 16:49 | ADMGEN ---
This patient, Giselle Aranda, was admitted to IMU Room 202-01 at 1648. Patient/family oriented to hospital policies and general routines including ID bracelet, bed and alarms, visiting hours, pain management, procedures, bathroom and other care routines, personal items, smoking policy, room service/diet, and visiting hours. Information on how to activate the Rapid Response Team has been discussed. Patient/Family are encouraged to report perceived risks to care and to ask questions if they do not understand what they are told or what they should do.
--- NOTE | 2023-06-02 21:44 | PCRCNOTE ---
pt came off bipap machine at 2140. on 3L NC. starting cpap S9 for overnight use
[2023-06-02 21:59] LABS: D Dimer 0.77 ug/mL (<0.48)
[2023-06-03] VITALS (37 sets, daily range): BP systolic 107–170; BP diastolic 45–73; PULSE 54–110; RESP 20–28; TEMP 36.3–37.2; O2SAT 93–100
[2023-06-03] MEDS: IPRATROPIUM BR 0.02% INH SOLN 0.5 MG/2.5 ML VIAL INHALATION ×6 (00:07→20:13)
[2023-06-03] MEDS: ALBUTEROL SULFATE NEB 2.5 MG/3 ML INH INHALATION ×6 (00:07→20:13)
[2023-06-03 04:46] LABS: Basophils Percent Auto 0.2 % (0.2-1.2); Hemoglobin 13.7 g/dL (12.0-15.0); Immature Granulocyte Absolute 0.12 K/mm3 (0.00-0.031); Immature Granulocyte Percent A 1.2 % (0-0.5); Lymphocytes Absolute Auto 0.47 K/mm3 (0.9-3.2); Lymphocytes Percent Auto 4.7 % (18.3-44.2); Mean Corpuscular HGB Conc 31.1 g/dl (32-36); Mean Corpuscular Hemoglobin 32.5 pg (26-34); Mean Corpuscular Volume 104.3 fl (80-100); Mean Platelet Volume 10.3 fl (7.4-10.4); Monocytes Absolute Auto 0.2 K/mm3 (0.1-0.6); Monocytes Percent Auto 1.6 % (2.6-8.5); Neutrophils Absolute Auto 9.2 K/mm3 (1.3-6.7); Neutrophils Percent Auto 92.3 % (45.5-73.1); Platelet Count Result 177 k/mm3 (150-375); Red Blood Count 4.22 M/mm3 (4.2-5.4); Red Cell Distribution Width 15.9 % (11.5-14.5)
[2023-06-03 04:56] LABS: Anion Gap 1 mmol/L (8-16); Blood Urea Nitrogen 27 mg/dL (7-17); Calcium 9.1 mg/dL (8.4-10.2); Carbon Dioxide 32 mmol/L (22-30); Chloride 105 mmol/L (98-107); Estimated CRCL calculation 53 ml/min; Estimated Glomerular Filt Rate > 60; Glucose 178 mg/dL (65-110); Potassium 4.3 mmol/L (3.4-5.0); Sodium 138 mmol/L (137-145)
--- NOTE | 2023-06-03 08:55 | ECG_ITS ---
Measurements Intervals [place] Rate: 92 P: [place]: 0 QRS: 0 QRSD: 122 T: 37 QT: 359 QTc: 444 Interpretive Statements ATRIAL FIBRILLATION WITH ABERRANT CONDUCTION OR VENTRICULAR PREMATURE COMPLEXES POSSIBLE RIGHT VENTRICULAR CONDUCTION DELAY [RSR (QR) IN V1/V2] MINIMAL ST DEPRESSION [0.025+ mV ST DEPRESSION] ABNORMAL ECG COMPARED TO ECG 06/02/2023 12:38:22 ST (T WAVE) DEVIATION NOW PRESENT Electronically Signed On 06-03-2023 12:10:59 CDT by Yoel Baer M.D.
[2023-06-03] MEDS: predniSONE 20 MG TABLET 40 MG PO (09:27)
[2023-06-03] MEDS: carvediloL 12.5 MG TABLET PO ×2 (09:28→20:33)
[2023-06-03] MEDS: POTASSIUM CHLORIDE 10 MEQ ER TABLET PO ×2 (09:28→17:29)
[2023-06-03] MEDS: allopurinoL 300 MG TABLET PO (09:28)
[2023-06-03] MEDS: FUROSEMIDE 40 MG TABLET PO (09:28)
[2023-06-03] MEDS: ENOXAPARIN 40 MG/0.4 ML SYRINGE SUB-Q (09:30)
[2023-06-03] MEDS: CIPROFLOXACIN 500 MG TAB 1000 MG PO (09:33)
[2023-06-03] MEDS: BUDESONIDE 3 MG CAP.SR.24H 9 MG PO (09:53)
--- NOTE | 2023-06-03 11:02 | PM.IMPN ---
Progress Note: A&P Assessment and Plan (1) Acute exacerbation of chronic obstructive pulmonary disease: Code(s): J44.1 - Chronic obstructive pulmonary disease with (acute) exacerbation Status: Acute (2) Acute and chronic respiratory failure with hypoxia: Code(s): J96.21 - Acute and chronic respiratory failure with hypoxia Status: Acute (3) Critical aortic valve stenosis: Code(s): I35.0 - Nonrheumatic aortic (valve) stenosis Status: Acute (4) Congestive heart failure: Code(s): I50.9 - Heart failure, unspecified Status: Acute (5) Obstructive sleep apnea on CPAP: Code(s): G47.33 - Obstructive sleep apnea (adult) (pediatric); Z99.89 - Dependence on other enabling machines and devices Status: Acute (6) Hypertension: Code(s): I10 - Essential (primary) hypertension Status: Acute (7) Paroxysmal atrial fibrillation: Code(s): I48.0 - Paroxysmal atrial fibrillation Status: Acute Plan The patient presented to the ED for evaluation of shortness of breath as per HPI. Labs, imaging, EKG, and all reports were personally reviewed. Her symptoms seem more consistent with COPD exacerbation. She has increasing lower extremity edema that is likely related to her critical aortic stenosis and overdiuresis should be avoided; continue with p.o. furosemide. She seems to have improved quite a bit with the steroids and nebulizer treatments and both will be continued. Wean BiPAP as tolerated. She is on a CPAP at home at nighttime which will be continued. Pulmonary embolism is a possibility; a D-dimer has been ordered and if that is positive she will need a chest CTA. Lower extremity venous Doppler ultrasounds ordered to rule out DVT. Blood pressures were reviewed and they have been stable. She is currently in a sinus rhythm with occasional ectopy. Her home medications will be reviewed and resumed as appropriate. Subjective Date/time seen: 06/03/23 11:02 Interval history: No complaints Exam Narrative: General: Well-developed, non-toxic appearing female on BiPAP in no acute distress. Weight: 90.6 kg. BMI: 32.2. HEENT: PERRL, EOMI. Sclera anicteric. Oral mucosa appears moist through the BiPAP. Neck: Supple. No JVD. Respiratory: Tolerating BiPAP. Does not appear in distress. Lungs sounds are diminished throughout without significant wheezing. Cardiovascular: Regular rate and rhythm with frequent ectopy, occasional bigeminy on monitor. High-pitched systolic murmur at the right upper sternal border. Gastrointestinal: Abdomen is soft, nontender, and nondistended with positive bowel sounds. Skin: Warm and dry. Scattered bruises on the upper and lower extremities. Extremities: No cyanosis or clubbing. 2+ pitting pedal edema to the anterior shins. Radial and pedal pulses intact. Neurological: Alert and oriented. Cranial nerves 2-12 are grossly intact. No gross focal deficits to casual conversation. Psychiatric: Pleasant and cooperative with normal mood and affect. Judgment and insight intact. Objective Data Vital Signs Vital Signs: Vital Signs - 24 hr 06/02/23 12:35 06/02/23 12:51 06/02/23 12:59 Temperature 98 F Pulse Rate 113 H 102 H Respiratory Rate 26 H 29 H Blood Pressure 151/73 H Pulse Oximetry 97 99 Oxygen Delivery Nasal Cannula BiPAP BiPAP Oxygen Flow Rate 2.5 Fraction of Inspired Oxygen 06/02/23 12:37 06/02/23 12:38 06/02/23 12:45 Temperature Pulse Rate 105 H 115 H 99 Respiratory Rate 27 H 17 35 H Blood Pressure 151/73 H Pulse Oximetry 95 94 Oxygen Delivery Oxygen Flow Rate Fraction of Inspired Oxygen 06/02/23 12:46 06/02/23 13:00 06/02/23 13:01 Temperature Pulse Rate 105 H 101 H 101 H Respiratory Rate 26 H 21 H 15 Blood Pressure 158/91 H 147/58 H Pulse Oximetry 97 97 99 Oxygen Delivery Oxygen Flow Rate Fraction of Inspired Oxygen 06/02/23 13:15 06/02/23 13:16 06/02/23 13:30 [place]
[2023-06-04] VITALS (33 sets, daily range): BP systolic 137–151; BP diastolic 67–91; PULSE 78–108; RESP 16–24; TEMP 36.3–36.7; O2SAT 87–100
[2023-06-04] MEDS: ALBUTEROL SULFATE NEB 2.5 MG/3 ML INH INHALATION ×6 (00:19→20:19)
[2023-06-04] MEDS: IPRATROPIUM BR 0.02% INH SOLN 0.5 MG/2.5 ML VIAL INHALATION ×6 (00:19→20:19)
[2023-06-04] MEDS: POTASSIUM CHLORIDE 10 MEQ ER TABLET PO ×2 (08:47→17:24)
[2023-06-04] MEDS: BUDESONIDE 3 MG CAP.SR.24H 9 MG PO (08:47)
[2023-06-04] MEDS: ENOXAPARIN 40 MG/0.4 ML SYRINGE SUB-Q (08:48)
[2023-06-04] MEDS: predniSONE 20 MG TABLET 40 MG PO (08:48)
[2023-06-04] MEDS: FUROSEMIDE 40 MG TABLET PO (08:48)
[2023-06-04] MEDS: carvediloL 12.5 MG TABLET PO ×2 (08:48→20:31)
[2023-06-04] MEDS: allopurinoL 300 MG TABLET PO (08:48)
--- NOTE | 2023-06-04 12:43 | PM.IMPN ---
Progress Note: A&P Assessment and Plan (1) Acute exacerbation of chronic obstructive pulmonary disease: Code(s): J44.1 - Chronic obstructive pulmonary disease with (acute) exacerbation Status: Acute Assessment and Plan: Continue nebulizers. Continue prednisone. Breathing is much better overall. (2) Acute and chronic respiratory failure with hypoxia: Code(s): J96.21 - Acute and chronic respiratory failure with hypoxia Status: Acute Assessment and Plan: Likely related to COPD exacerbation. Also so has history of aortic stenosis. (3) Critical aortic valve stenosis: Code(s): I35.0 - Nonrheumatic aortic (valve) stenosis Status: Acute Assessment and Plan: TAVR was to be scheduled later this week. This will obviously need to be put on hold. Continue to monitor vitals. Blood pressure is okay (4) Congestive heart failure: Code(s): I50.9 - Heart failure, unspecified Status: Acute Assessment and Plan: Appears to be compensated. EF 65%. Diastolic dysfunction on prior echo (5) Obstructive sleep apnea on CPAP: Code(s): G47.33 - Obstructive sleep apnea (adult) (pediatric); Z99.89 - Dependence on other enabling machines and devices Status: Acute (6) Hypertension: Code(s): I10 - Essential (primary) hypertension Status: Acute Assessment and Plan: monitor (7) Paroxysmal atrial fibrillation: Code(s): I48.0 - Paroxysmal atrial fibrillation Status: Acute Assessment and Plan: Rate controlled. Not on anticoagulation secondary to TAVR being done in the next week or 2. Subjective Date/time seen: 06/04/23 12:43 Interval history: Respiratory status much improved. Breathing is much better. Exam Narrative: General: Well-developed, non-toxic appearing female on BiPAP in no acute distress. Weight: 90.6 kg. BMI: 32.2. HEENT: PERRL, EOMI. Sclera anicteric. Oral mucosa appears moist through the BiPAP. Neck: Supple. No JVD. Respiratory: Tolerating BiPAP. Does not appear in distress. Lungs sounds are diminished throughout without significant wheezing. Cardiovascular: Regular rate and rhythm with frequent ectopy, occasional bigeminy on monitor. High-pitched systolic murmur at the right upper sternal border. Gastrointestinal: Abdomen is soft, nontender, and nondistended with positive bowel sounds. Skin: Warm and dry. Scattered bruises on the upper and lower extremities. Extremities: No cyanosis or clubbing. 2+ pitting pedal edema to the anterior shins. Radial and pedal pulses intact. Neurological: Alert and oriented. Cranial nerves 2-12 are grossly intact. No gross focal deficits to casual conversation. Psychiatric: Pleasant and cooperative with normal mood and affect. Judgment and insight intact. Objective Data Vital Signs Vital Signs: Vital Signs - 24 hr 06/03/23 14:00 06/03/23 16:00 06/03/23 16:00 Temperature Pulse Rate 95 83 Respiratory Rate Blood Pressure Pulse Oximetry 95 Oxygen Delivery Nasal Cannula Oxygen Flow Rate 3 Fraction of Inspired Oxygen 06/03/23 17:22 06/03/23 17:26 06/03/23 17:26 Temperature Pulse Rate 103 H 106 H Respiratory Rate 20 Blood Pressure Pulse Oximetry 97 97 Oxygen Delivery Nasal Cannula Oxygen Flow Rate 3 Fraction of Inspired Oxygen 06/03/23 16:00 06/03/23 17:40 06/03/23 18:00 Temperature 97.3 F L Pulse Rate 54 L 99 90 Respiratory Rate 20 20 Blood Pressure 139/45 L Pulse Oximetry 96 Oxygen Delivery Oxygen Flow Rate Fraction of Inspired Oxygen 06/03/23 20:13 06/03/23 20:19 06/03/23 20:21 Temperature Pulse Rate 95 95 95 Respiratory Rate 20 24 H 20 Blood Pressure Pulse Oximetry 100 Oxygen Delivery CPAP Oxygen Flow Rate Fraction of Inspired Oxygen 06/03/23 20:22 06/03/23 20:33 06/03/23 21:07 Temperature 97.4 F L Pulse Rate 95 98 100 Respiratory Rate 20 20 Blood P
[2023-06-05] VITALS (29 sets, daily range): BP systolic 145–178; BP diastolic 55–84; PULSE 77–183; RESP 13–22; TEMP 36.1–36.7; O2SAT 95–100
[2023-06-05] MEDS: IPRATROPIUM BR 0.02% INH SOLN 0.5 MG/2.5 ML VIAL INHALATION ×6 (00:38→20:10)
[2023-06-05] MEDS: ALBUTEROL SULFATE NEB 2.5 MG/3 ML INH INHALATION ×6 (00:38→20:10)
[2023-06-05] MEDS: carvediloL 12.5 MG TABLET PO ×2 (09:18→20:53)
[2023-06-05] MEDS: predniSONE 20 MG TABLET 40 MG PO (09:18)
[2023-06-05] MEDS: allopurinoL 300 MG TABLET PO (09:18)
[2023-06-05] MEDS: ENOXAPARIN 40 MG/0.4 ML SYRINGE SUB-Q (09:18)
[2023-06-05] MEDS: BUDESONIDE 3 MG CAP.SR.24H 9 MG PO (09:18)
[2023-06-05] MEDS: POTASSIUM CHLORIDE 10 MEQ ER TABLET PO ×2 (09:19→17:25)
[2023-06-05] MEDS: FUROSEMIDE 40 MG TABLET PO (09:19)
[2023-06-05 09:50] LABS: Anion Gap 2 mmol/L (8-16); Blood Urea Nitrogen 35 mg/dL (7-17); Calcium 8.7 mg/dL (8.4-10.2); Carbon Dioxide 36 mmol/L (22-30); Chloride 103 mmol/L (98-107); Estimated CRCL calculation 43 ml/min; Estimated Glomerular Filt Rate 53; Glucose 170 mg/dL (65-110); Sodium 141 mmol/L (137-145)
--- NOTE | 2023-06-05 10:20 | P.CDI_ITS ---
chronic no exacerbation CDI Query Clarification Request Documented history of CHF CHF noted in the assessment and plan. Lasix listed as a home medication. Patient receiving Lasix. Edema noted in the documentation. Please specify type and acuity of heart failure if known. * Acute * Chronic * Acute on Chronic * Unknown * Systolic * Diastolic * Combined Systolic and Diastolic * Unknown
--- NOTE | 2023-06-05 10:20 | WPDCDIQUERY2 ---
CDI Query Clarification Request Documented history of CHF CHF noted in the assessment and plan. Lasix listed as a home medication. Patient receiving Lasix. Edema noted in the documentation. Please specify type and acuity of heart failure if known. Acute Chronic Acute on Chronic Unknown Systolic Diastolic Combined Systolic and Diastolic Unknown
--- NOTE | 2023-06-05 12:20 | PM.IMPN ---
Progress Note: A&P Assessment and Plan (1) Acute exacerbation of chronic obstructive pulmonary disease: Code(s): J44.1 - Chronic obstructive pulmonary disease with (acute) exacerbation Status: Acute Assessment and Plan: Continue nebulizers. Continue prednisone. Breathing is much better overall. (2) Acute and chronic respiratory failure with hypoxia: Code(s): J96.21 - Acute and chronic respiratory failure with hypoxia Status: Acute Assessment and Plan: Likely related to COPD exacerbation. Also so has history of aortic stenosis. (3) Critical aortic valve stenosis: Code(s): I35.0 - Nonrheumatic aortic (valve) stenosis Status: Acute Assessment and Plan: TAVR was to be scheduled later this week. This will obviously need to be put on hold. Continue to monitor vitals. Blood pressure is okay (4) Congestive heart failure: Code(s): I50.9 - Heart failure, unspecified Status: Acute Assessment and Plan: Appears to be compensated. EF 65%. Diastolic dysfunction on prior echo (5) Obstructive sleep apnea on CPAP: Code(s): G47.33 - Obstructive sleep apnea (adult) (pediatric); Z99.89 - Dependence on other enabling machines and devices Status: Acute (6) Hypertension: Code(s): I10 - Essential (primary) hypertension Status: Acute Assessment and Plan: monitor (7) Paroxysmal atrial fibrillation: Code(s): I48.0 - Paroxysmal atrial fibrillation Status: Acute Assessment and Plan: Rate controlled. Not on anticoagulation secondary to TAVR being done in the next week or 2. Subjective Date/time seen: 06/05/23 12:20 Interval history: doing well feeling better sob improved Exam Narrative: General: Well-developed, non-toxic appearing female on BiPAP in no acute distress. Weight: 90.6 kg. BMI: 32.2. HEENT: PERRL, EOMI. Sclera anicteric. Oral mucosa appears moist through the BiPAP. Neck: Supple. No JVD. Respiratory: Tolerating BiPAP. Does not appear in distress. Lungs sounds are diminished throughout without significant wheezing. Cardiovascular: Regular rate and rhythm with frequent ectopy, occasional bigeminy on monitor. High-pitched systolic murmur at the right upper sternal border. Gastrointestinal: Abdomen is soft, nontender, and nondistended with positive bowel sounds. Skin: Warm and dry. Scattered bruises on the upper and lower extremities. Extremities: No cyanosis or clubbing. 2+ pitting pedal edema to the anterior shins. Radial and pedal pulses intact. Neurological: Alert and oriented. Cranial nerves 2-12 are grossly intact. No gross focal deficits to casual conversation. Psychiatric: Pleasant and cooperative with normal mood and affect. Judgment and insight intact. Objective Data Vital Signs Vital Signs: Vital Signs - 24 hr 06/04/23 14:00 06/04/23 15:39 06/04/23 16:12 Temperature Pulse Rate 93 100 Respiratory Rate 24 H Blood Pressure Pulse Oximetry Pulse Oximetry [With Activity During Therapy Session] 87 L Oxygen Delivery Nasal Cannula Oxygen Flow Rate 3 Fraction of Inspired Oxygen 06/04/23 15:56 06/04/23 16:00 06/04/23 16:35 Temperature Pulse Rate 101 H 98 Respiratory Rate 22 H Blood Pressure Pulse Oximetry Pulse Oximetry [With Activity During Therapy Session] Oxygen Delivery Nasal Cannula Oxygen Flow Rate 3 Fraction of Inspired Oxygen 06/04/23 16:00 06/04/23 18:00 06/04/23 20:21 Temperature 97.7 F Pulse Rate 108 H 89 92 Respiratory Rate 17 22 H Blood Pressure 137/70 Pulse Oximetry 100 Pulse Oximetry [With Activity During Therapy Session] Oxygen Delivery Oxygen Flow Rate Fraction of Inspired Oxygen 06/04/23 20:00 06/04/23 20:26 06/04/23 20:31 Temperature 97.7 F Pulse Rate 91 94 85 Respiratory Rate 20 22 H Blood Pressure 138/76 Pulse Oximetry 99 98 Pulse Oximetry [With Activity During The
--- NOTE | 2023-06-05 23:05 | PC.NURSE ---
2255 Report given to EMS. Patient transferred to [place]
--- NOTE | 2023-07-02 11:43 | PM.TDS ---
Transfer Discharge Sum: Prov Provider Date of admission: 06/02/23 15:44 Primary care physician: Cristopher Rosario MD Admitting clinician: Liz Wilkinson DO DS: Admitting Diagnosis Discharge Date 06/05/23 Admitting Diagnosis COPD DS: Discharge Diagnosis Discharge Diagnosis (1) Acute exacerbation of chronic obstructive pulmonary disease: Code(s): J44.1 - Chronic obstructive pulmonary disease with (acute) exacerbation Status: Acute Assessment and Plan: Continue nebulizers. Continue prednisone. Breathing is much better overall. (2) Acute and chronic respiratory failure with hypoxia: Code(s): J96.21 - Acute and chronic respiratory failure with hypoxia Status: Acute Assessment and Plan: Likely related to COPD exacerbation. Also so has history of aortic stenosis. (3) Critical aortic valve stenosis: Code(s): I35.0 - Nonrheumatic aortic (valve) stenosis Status: Acute Assessment and Plan: TAVR was to be scheduled later this week. This will obviously need to be put on hold. Continue to monitor vitals. Blood pressure is okay (4) Congestive heart failure: Code(s): I50.9 - Heart failure, unspecified Status: Acute Assessment and Plan: Appears to be compensated. EF 65%. Diastolic dysfunction on prior echo (5) Obstructive sleep apnea on CPAP: Code(s): G47.33 - Obstructive sleep apnea (adult) (pediatric); Z99.89 - Dependence on other enabling machines and devices Status: Acute (6) Hypertension: Code(s): I10 - Essential (primary) hypertension Status: Acute Assessment and Plan: monitor (7) Paroxysmal atrial fibrillation: Code(s): I48.0 - Paroxysmal atrial fibrillation Status: Acute Assessment and Plan: Rate controlled. Not on anticoagulation secondary to TAVR being done in the next week or 2. Transfer Discharge Sum: Med Medications Active and Home Medications: Home Medications albuterol sulfate 90 mcg/actuation aerosol inhaler 2 puff inhalation Q4-6H PRN shortness of breath #8.5 grams 11/10/21 [Rx Confirmed 06/02/23] allopurinol 300 mg tablet 300 mg PO DAILY #90 tabs 08/28/22 [Rx Confirmed 06/02/23] carvedilol 12.5 mg tablet 12.5 mg PO Q12H 09/19/22 [History Confirmed 06/02/23] albuterol sulfate 2.5 mg/3 mL (0.083 %) solution for nebulization 2.5 mg (3 mL) inhalation Q4HRT PRN Shortness Of Breath #180 mL 11/17/22 [Rx Confirmed 06/02/23] potassium chloride 10 mEq tablet,extended release (K-Tab) 10 meq PO BID 11/17/22 [History Confirmed 06/02/23] budesonide 3 mg capsule,delayed,extended release 9 mg PO DAILY #90 ea 02/14/23 [Rx Confirmed 06/02/23] ciprofloxacin HCl 500 mg tablet 1,000 mg PO DAILY 06/02/23 [History Confirmed 06/02/23] furosemide 40 mg tablet 40 mg PO DAILY 06/02/23 [History Confirmed 06/02/23] Transfer Discharge Sum: Hosp Hospital Course Hospital course: Giselle Aranda is a 83 year old female admitted for COPD exacerbation. This subsequently improved pretty rapidly however she was scheduled for a TAVR procedure or in [place]. Patient was transferred there for ongoing management her procedure. Time Spent with Patient Time attestation: Total time spent providing and/or coordinating transfer services: Exam Narrative: General: Well-developed, non-toxic appearing female on BiPAP in no acute distress. Weight: 90.6 kg. BMI: 32.2. HEENT: PERRL, EOMI. Sclera anicteric. Oral mucosa appears moist through the BiPAP. Neck: Supple. No JVD. Respiratory: Tolerating BiPAP. Does not appear in distress. Lungs sounds are diminished throughout without significant wheezing. Cardiovascular: Regular rate and rhythm with frequent ectopy, occasional bigeminy on monitor. High-pitched systolic murmur at the right upper sternal border. Gastrointestinal: Abdomen is soft, nontender, and nondistended with positive bowel sounds. Skin: Warm and dry. Scattered bruises on the upper and lowe
== END 2023-06-05 22:55 | disposition short-term general hospital (02) | DRG 190 ==
LOC: ANHED 15:18 → ANHIMU 16:06
PROVIDERS: Physician Assistant; Admitting Provider Student in an Organized Health Care Education/Training Program; Emergency Provider Preventive Medicine Aerospace Medicine; PCP Family Medicine; Visit Provider Chiropractor
DX: J44.1 Chronic obstructive pulmonary disease with (acute) exacerbation (principal); J96.21 Acute and chronic respiratory failure with hypoxia; I50.32 Chronic diastolic (congestive) heart failure; I11.0 Hypertensive heart disease with heart failure; I35.0 Nonrheumatic aortic (valve) stenosis; G47.33 Obstructive sleep apnea (adult) (pediatric); I48.0 Paroxysmal atrial fibrillation; E66.9 Obesity, unspecified; Z68.32 Body mass index [BMI] 32.0-32.9, adult; Z85.828 Personal history of other malignant neoplasm of skin; Z87.891 Personal history of nicotine dependence; Z99.81 Dependence on supplemental oxygen
CPT/HCPCS: 36415; 36600; 71045; 71046; 80048; 80053; 82803; 82805; 83735; 84484; 85025; 85380; 93005; 93970; 94002; 94640; 96365; 96375; 97161; 97165; 97530; 97535; 99285; A9270; J0612; J1650; J3475; J7512

== ENCOUNTER 2023-07-10 08:00 | Outpatient (NON) | payer MEDICARE, SELFPAY | END 2023-07-10 08:01 | disposition home or self-care (01) | LOC: ANHLAB 07-13 13:16 | PROVIDERS: PCP Family Medicine; Visit Provider Nurse Practitioner | DX: C44.41 Basal cell carcinoma of skin of scalp and neck (principal) | CPT/HCPCS: 88305 ==

== ENCOUNTER 2023-08-06 13:40 | Outpatient (NON) | payer MEDICARE, SELFPAY | END 2023-08-06 13:41 | disposition home or self-care (01) | LOC: ANHLAB 13:41 | PROVIDERS: PCP Nurse Practitioner Family; Visit Provider Nurse Practitioner | DX: C44.41 Basal cell carcinoma of skin of scalp and neck (principal) | CPT/HCPCS: 88305; 88331 ==

== ENCOUNTER 2023-10-02 09:33 | Outpatient (CLI) | payer MEDICARE, SELFPAY ==
[2023-10-02 10:12] LABS: Basophils Absolute Auto 0.1 K/mm3 (0.0-0.1); Basophils Percent Auto 1.1 % (0.2-1.2); Eosinophils Absolute Auto 0.1 K/mm3 (0-0.3); Eosinophils Percent Auto 1.1 % (0-4.4); Hematocrit 42.2 % (37.0-47.0); Immature Granulocyte Absolute 0.36 K/mm3 (0.00-0.031); Lymphocytes Absolute Auto 1.39 K/mm3 (0.9-3.2); Lymphocytes Percent Auto 15.4 % (18.3-44.2); Mean Corpuscular HGB Conc 30.8 g/dl (32-36); Mean Corpuscular Volume 100.5 fl (80-100); Mean Platelet Volume 9.9 fl (7.4-10.4); Monocytes Absolute Auto 0.7 K/mm3 (0.1-0.6); Monocytes Percent Auto 7.9 % (2.6-8.5); Neutrophils Absolute Auto 6.4 K/mm3 (1.3-6.7); Neutrophils Percent Auto 70.5 % (45.5-73.1); Nucleated Red Blood Cells Perc 0.2 % (0.0-0.2); Platelet Count Result 174 k/mm3 (150-375); Red Cell Distribution Width 15.4 % (11.5-14.5)
[2023-10-02 10:25] LABS: Alanine Aminotransferase 20 U/L (6-35); Albumin Level 3.5 g/dL (3.5-5.1); Alkaline Phosphatase 69 U/L (38-126); Anion Gap 6 mmol/L (8-16); Aspartate Amino Transferase 25 U/L (14-36); Bilirubin,Total 0.5 mg/dL (0.2-1.3); Blood Urea Nitrogen 20 mg/dL (7-17); Carbon Dioxide 28 mmol/L (22-30); Chloride 110 mmol/L (98-107); Estimated Glomerular Filt Rate > 60; Glucose 100 mg/dL (65-110); Potassium 4.5 mmol/L (3.4-5.0); Sodium 144 mmol/L (137-145)
[2023-10-02 11:50] LABS: Hemoglobin A1C 6.8 % (<5.7)
[2023-10-02 12:18] LABS: MALB Creatinine Ratio 331.8 mg/g (0-30); Microalbumin Urine Random 371.6 mg/L (0-16.7)
== END 2023-10-02 09:34 | disposition home or self-care (01) ==
PROVIDERS: PCP Nurse Practitioner Family; Visit Provider Nurse Practitioner Family
DX: J43.9 Emphysema, unspecified (principal); I10 Essential (primary) hypertension; Z79.899 Other long term (current) drug therapy
CPT/HCPCS: 36415; 80053; 82043; 83036; 85025

== ENCOUNTER 2023-10-19 12:34 | Outpatient (CLI) | payer MEDICARE, SELFPAY ==
[2023-10-19 12:30] VITALS: PULSE 72; O2SAT 85
[2023-10-19 12:35] VITALS: PULSE 70; O2SAT 86
[2023-10-19 12:40] VITALS: PULSE 69; O2SAT 88
[2023-10-19 12:45] VITALS: PULSE 68; O2SAT 91
[2023-10-19 12:50] VITALS: PULSE 80; O2SAT 91
[2023-10-19 13:00] VITALS: PULSE 68; O2SAT 91
--- NOTE | 2023-10-19 13:03 | HOMEO2EVAL ---
Evaluation was performed at [facility] Home Oxygen Evaluation RC: Home Oxygen (O2) Evaluation Start: 10/19/23 13:00 Freq: Status: Active Protocol: RPE Activity Type Activity Date Activity User E-sign Co-sign Detail Recorded Client Recorded Date Recorded By Document 10/19/23 12:30 [email or web address] [email or web address] 10/19/23 13:03 DJO Document 10/19/23 12:35 [email or web address] [email or web address] 10/19/23 13:03 DJO Document 10/19/23 12:40 [email or web address] [email or web address] 10/19/23 13:03 DJO Document 10/19/23 12:45 [email or web address] [email or web address] 10/19/23 13:03 DJO Document 10/19/23 12:50 [email or web address] [email or web address] 10/19/23 13:03 DJO Document 10/19/23 13:00 [email or web address] [email or web address] 10/19/23 13:03 DJO 10/19/23 10/19/23 10/19/23 12:30 12:35 12:40 Home O2 Evaluation [Oxygen] -Test Phase Resting Resting Resting -Oxygen Delivery Room Air Nasal Cannula Nasal Cannula -Oxygen Flow Rate (L/min) 1 2 [Pulse Oximetry] -Pulse Oximetry (90-100 %) 85 L 86 L 88 L [Pulse Rate] -Pulse Rate (60-100 beats/min) 72 70 69 [Evaluation] -Activity Tolerance [Charges] -Evaluation Charges O2 Evaluation by Pulmonary 10/19/23 10/19/23 10/19/23 12:45 12:50 13:00 Home O2 Evaluation [Oxygen] -Test Phase Resting Exercise Resting -Oxygen Delivery Nasal Cannula Nasal Cannula Nasal Cannula -Oxygen Flow Rate (L/min) 3 3 3 [Pulse Oximetry] -Pulse Oximetry (90-100 %) 91 91 91 [Pulse Rate] -Pulse Rate (60-100 beats/min) 68 80 68 [Evaluation] -Activity Tolerance Poor [Charges] -Evaluation Charges
== END 2023-10-19 12:35 | disposition home or self-care (01) ==
LOC: ANHPFT 12:37
PROVIDERS: PCP Nurse Practitioner Family; Visit Provider Nurse Practitioner Family
DX: J96.11 Chronic respiratory failure with hypoxia (principal); Z99.81 Dependence on supplemental oxygen
CPT/HCPCS: 94618